=== PATIENT | male | born 1950 | race Caucasian/White ===

== ENCOUNTER 2017-10-14 02:25 | Inpatient (IN) | payer MEDICARE, MEDICAID ==
--- NOTE | 2017-10-14 02:50 | ER Document Report ---
ED General - General Chief Complaint: Bloody Stools Stated Complaint: VOMITING BLOOD Time Seen by Provider: 10/14/17 02:33 Mode of Arrival: Medic Information source: Patient, Emergency Med Personnel Notes: 67-year-old male history of A. fib and quadriplegia presents with complaints of vomiting. Patient himself states he only vomited a few times but the care facility that he was at [facility] for evaluation for dark emesis. Patient is unsure when his last bowel movement was. Patient on previous discharge was noted to be on Coumadin he himself is not sure if he is on any blood thinners his medication list does not include Coumadin at this time. Patient himself denies quadriplegia, moves his hands and his feet but is noted to have contractures of the hands, he admits to pressure sensation during rectal examination and has good rectal tone Patient is noted to have a history of gastritis without esophagitis TRAVEL OUTSIDE OF THE [place] IN LAST 30 DAYS: No - HPI Onset: Just prior to arrival Onset/Duration: Sudden Quality of pain: No pain Severity: Mild Pain Level: Denies Associated symptoms: Vomiting Exacerbated by: Denies Relieved by: Denies Similar symptoms previously: No Recently seen / treated by doctor: No - Related Data Allergies/Adverse Reactions: Sulfa (Sulfonamide Antibiotics) Allergy (Verified 09/26/13 01:48) Past Medical History - Social History Smoking Status: Never Smoker Cigarette use (# per day): No Chew tobacco use (# tins/day): No Smoking Education Provided: No Family History: Reviewed & Not Pertinent - Past Medical History Cardiac Medical History: Reports: Hx Atrial Fibrillation, Hx Congestive Heart Failure, Hx Hypertension Pulmonary Medical History: Reports: Hx COPD, Hx Pneumonia Denies: Hx Tuberculosis GI Medical History: Reports: Hx Gastroesophageal Reflux Disease Psychiatric Medical History: Denies: Hx Depression - Immunizations Hx Diphtheria, Pertussis, Tetanus Vaccination: Yes Review of Systems - Review of Systems Notes: REVIEW OF SYSTEMS: CONSTITUTIONAL : Denies fever, chills, or sweats. Denies recent illness. EENT: Denies eye, ear, throat, or mouth pain or symptoms. Denies nasal or sinus congestion or discharge. Denies throat, tongue, or mouth swelling or difficulty swallowing. CARDIOVASCULAR: Denies chest pain. Denies palpitations or racing or irregular heart beat. Denies ankle edema. RESPIRATORY: Denies cough, cold, or chest congestion. Denies shortness of breath, difficulty breathing, or wheezing. GASTROINTESTINAL: Admits to vomiting GENITOURINARY: Denies difficulty urinating, painful urination, burning, frequency, blood in urine, or discharge. MUSCULOSKELETAL: Denies back or neck pain or stiffness. Denies joint pain or swelling. SKIN: Denies rash, lesions or sores. HEMATOLOGIC : Denies easy bruising or bleeding. LYMPHATIC: Denies swollen, enlarged glands. NEUROLOGICAL: Denies confusion or altered mental status. Denies passing out or loss of consciousness. Denies dizziness or lightheadedness. Denies headache. Denies weakness or paralysis or loss of use of either side. Denies problems with gait or speech. Denies sensory loss, numbness, or tingling. Denies seizures. PSYCHIATRIC: Denies anxiety or stress. Denies depression, suicidal ideation, or homicidal ideation. ALL OTHER SYSTEMS REVIEWED AND NEGATIVE. Dictation was performed using [employer] voice recognition software PHYSICAL EXAMINATION: GENERAL: Overall well-appearing male no acute distress HEAD: Atraumatic, normocephalic. EYES: Pupils equal round and reactive to light, extraocular movements intact, sclera anicteric, conjunctiva are normal. ENT: Nares patent, oropharynx clear without exudates. Moist mucous membranes. NECK: Normal range of motion, supple without lymphadenopathy LUNGS: Breath sounds clear to auscultation bilaterally and equal. No wheezes rales or rhonchi. HEART: Regular rate and rhythm without murmurs ABDOMEN: Abdominal distention noted rectal examination notes brown stool good rectal tone Musculoskeletal: Contractures noted of bilateral hands patient is able to lift hands and move his feet NEUROLOGICAL: . Normal speech, PSYCH: Normal mood, normal affect. SKIN: Warm, Dry, normal turgor, no rashes or lesions noted. Physical Exam - Vital signs Vitals: Pulse Ox 95 10/13/17 20:40 Course - Re-evaluation Re-evalutation: 10/14/17 02:49 Patient's presentation is a bit confounding, he is noted to be quadriplegic he has sensation and movement of his extremities, it is unclear if he is actually on blood thinners at this time, examination did note brown stool and there is a concern of obstruction versus GI bleed versus simple vomiting 10/14/17 03:49 ct results consistant with ileus vs obstruction, pneumonia noted antibtiocs started 10/14/17 05:[address] Sunshine, he states this is a surgical patient , defers on admission 10/14/17 05:03 Dr smalls requests rectal gastrografin 10/14/17 05:05 - Vital Signs Vital signs: Temp Pulse Resp BP Pulse Ox 26 H 157/81 H 94 10/14/17 04:18 10/14/17 04:18 10/14/17 04:18 - Laboratory Result Diagrams: 10/14/17 02:32 10/14/17 02:32 Laboratory results interpreted by me: 10/14/17 10/14/17 02:32 02:32 WBC 15.6 H RDW 15.2 H Absolute Neutrophils 11.6 H Glucose 187 H - Diagnostic Test Radiology reviewed: Image reviewed, Reports reviewed Discharge - Discharge Clinical Impression: Large bowel obstruction, Quadriplegia Pneumonia Qualifiers: Pneumonia type: due to unspecified organism Laterality: right Lung location: lower lobe of lung Qualified Code(s): J18.1 - Lobar pneumonia, unspecified organism Condition: Stable Disposition: ADMITTED INPATIENT Admitting Provider: Surgicalist Unit Admitted: Telemetry
[2017-10-14 02:54] LABS: ABSOLUTE BASOPHILS # (AUTO) 0.1 10^3/uL (0.0-0.2); ABSOLUTE EOSINOPHILS # (AUTO) 0.3 10^3/uL (0.0-0.6); ABSOLUTE LYMPHOCYTES (AUTO) 2.7 10^3/uL (0.5-4.7); ABSOLUTE NEUT (AUTO) 11.6 10^3/uL (1.7-8.2); BASOPHILS % (AUTO) 0.4 % (0-2); EOSINOPHILS % (AUTO) 1.8 % (0-6); HEMATOCRIT 42.2 % (37.9-51.0); HEMOGLOBIN 13.8 g/dL (13.5-17.0); LYMPHOCYTES % (AUTO) 17.1 % (13-45); MEAN CORPUSCULAR HEMOGLOBIN 27.1 pg (27.0-33.4); MEAN CORPUSCULAR HGB CONC 32.7 g/dL (32.0-36.0); MEAN CORPUSCULAR VOLUME 83 fl (80-97); MONOCYTES % (AUTO) 6.3 % (3-13); PLATELET COUNT 316 10^3/uL (150-450); RED CELL DISTRIBUTION WIDTH 15.2 % (11.5-14.0); SEGMENTED NEUTROPHILS % (AUTO) 74.4 % (42-78); TOTAL CELLS COUNTED % (AUTO) 100 %; WHITE BLOOD COUNT 15.6 10^3/uL (4.0-10.5)
[2017-10-14 03:11] LABS: INTERNATIONAL RATION (INR) 1.01
[2017-10-14 03:15] LABS: ALANINE AMINOTRANSFERASE 39 U/L (21-72); ALBUMIN 4.3 g/dL (3.5-5.0); ALKALINE PHOSPHATASE 93 U/L (38-126); ANION GAP 14 (5-19); ASPARTATE AMINO TRANSFERASE 51 U/L (17-59); BILIRUBIN,DIRECT 0.4 mg/dL (0.0-0.4); BILIRUBIN,TOTAL 0.5 mg/dL (0.2-1.3); BLOOD UREA NITROGEN 8 mg/dL (7-20); CALCIUM 9.5 mg/dL (8.4-10.2); CARBON DIOXIDE 25 mmol/L (22-30); CHLORIDE 102 mmol/L (98-107); GLUCOSE 187 mg/dL (75-110); POTASSIUM 3.7 mmol/L (3.6-5.0); SODIUM 140.6 mmol/L (137-145); TOTAL PROTEIN 8.1 g/dL (6.3-8.2)
--- NOTE | 2017-10-14 04:12 | RADIOLOGY REPORT (SQ) ---
EXAM DESCRIPTION: CT ABD/PELVIS WITH IV ONLY CLINICAL HISTORY: 67 years Male, abd distension , vomiting COMPARISON: None. TECHNIQUE: 100 mL Isovue-370 IV contrast. Coronal and sagittal reformat. This exam was performed according to our departmental dose-optimization program, which includes automated exposure control, adjustment of the mA and/or kV according to patient size and/or use of iterative reconstruction technique. FINDINGS: Small-moderate right lower lobar consolidate. Minimal right pleural effusion. Moderate gaseous distention of the large bowel 10.10 cm diameter of the cecum. No free fluid. No free air. A 4.5 cm right inguinal hernia with partial urinary bladder involvement and no acute complication. 4 cm left inguinal fat only hernia. Micronodular spleen with a developmental/iatrogenic capsular/adjacent calcification. IVC filter. 1.2 cm likely benign right renal cyst. [id number] L5 anterior vertebral compression deformity. Mild/moderate disc desiccation. Moderate bony demineralization. Remaining inferior thorax, liver, gallbladder, pancreas, spleen, adrenals, renal system, gastrointestinal tract, pelvic organs, lymphatics, vasculature, and musculoskeleton appear otherwise unremarkable. IMPRESSION: 1. Small right lower lobar pneumonia. 2. Large bowel ileus pattern; cannot exclude a low-grade large bowel obstruction.
[2017-10-14] MEDS ORDERED: CEFTRIAXONE INJ 1000 MG VIAL IV ONE (04:14)
[2017-10-14] MEDS ORDERED: AMPICILLIN SOD/SULBACTAM 3 GM VIAL IV ONE (05:02)
--- NOTE | 2017-10-14 05:24 | RADIOLOGY REPORT (SQ) ---
EXAM DESCRIPTION: KUB/ABDOMEN (SINGLE VIEW) CLINICAL HISTORY: 67 years, Male, NG TUBE PLACEMENT COMPARISON: None. NUMBER OF VIEWS: 1 Technique/limitation: targeted for tube placement. FINDINGS: Adequate appearing enteric tube course with the tip/proximal port overlying the stomach. Small right basilar opacity and moderate gaseous distention of large bowel consistent with concurrent CT. Small right lung volume. IVC filter. IMPRESSION: Enteric tube.
--- NOTE | 2017-10-14 10:59 | RADIOLOGY REPORT (SQ) ---
EXAM DESCRIPTION: BARIUM ENEMA COMPLETED DATE/TIME: 10/14/2017 10:41 am REASON FOR STUDY: bed1 large bowel obstruction COMPARISON: None. FLUOROSCOPY TIME: 2.4 minutes 3 overhead and multiple fluoroscopic images saved to PACS. TECHNIQUE: Following retrograde filling of the colon with water soluble contrast, fluoroscopic spot and overhead imaging of the colon was obtained and saved to PACS. LIMITATIONS: None. FINDINGS: Contrast flowed freely into the ascending colon and cecum. No stricture is identified. IMPRESSION: No stricture. COMMENT: Quality ID [id number]: Final reports for procedures using fluoroscopy that document radiation exp osure indices, or exposure time and number of fluorographic images (if radiation exposure indices are not available) TECHNICAL DOCUMENTATION: JOB ID: [id number] [employer]- All Rights Reserved
[2017-10-14] MEDS ORDERED: GLUCAGON,HUMAN RECOMB 1 MG INJ SUBCUT PRN (11:29)
[2017-10-14] MEDS ORDERED: DEXTROSE 40% GEL 15 GM TUBE PO PRN ×2 (11:29)
[2017-10-14] MEDS ORDERED: DEXTROSE 50%-WATER 25 GM/50 ML DISP.SYRIN IV PRN ×2 (11:29)
[2017-10-14] MEDS ORDERED: ONDANSETRON HCL INJ/PF 4 MG/2 ML SDV IV PRN ×2 (11:29→13:30)
--- NOTE | 2017-10-14 11:29 | PDOC H&P ---
History of Present Illness Admission Date/PCP: 10/14/17 05:28 Patient complains of: Patient not sure why he is in the emergency room. But he did have an episode of nausea and vomiting and his senior living. History of Present Illness: LAUREN NOE JR is a 67 year old male noted with nausea and vomiting 1 at the senior living. Was subsequently taken to the emergency room for further evaluation. Patient does note some abdominal distention and some abdominal discomfort. He has been having liquid bowel movements. He is uncertain when he had his last colonoscopy. He is an extremely poor historian. Past Medical History Cardiac Medical History: Reports: Atrial Fibrillation, Congestive Heart Failure , Hypertension Pulmonary Medical History: Reports: Chronic Obstructive Pulmonary Disease (COPD) , Pneumonia Denies: Tuberculosis GI Medical History: Reports: Gastroesophageal Reflux Disease Psychiatric Medical History: Denies: Depression Social History Smoking Status: Never Smoker Frequency of Alcohol Use: None Hx Recreational Drug Use: No Drugs: None Hx Prescription Drug Abuse: No Family History Family History: Reviewed & Not Pertinent Parental Family History Reviewed: No Children Family History Reviewed: No Sibling(s) Family History Reviewed.: No Medication/Allergy Home Medications: Digoxin [Lanoxin 0.125 mg Tablet] 0.125 mg PO DAILY MDD HOLD FOR HR LESS THAN 60 10/14/17 Diltiazem HCl [Cardizem Cd 120 mg Capsule] 120 mg PO DAILY 10/14/17 Fluticasone Propionate [Flonase Nasal [place] 50 Mcg/[place] 16 gm] 1 spray NAREB DAILY 10/14/17 L. Acidophilus/L.bulgaricus [Floranex Tablet] 1 tab PO TID 10/14/17 Lactulose [Constulose 10 gm/15 mL Oral Solution] 20 gm PO QHS 10/14/17 Metoprolol Tartrate [Lopressor 100 mg Tablet] 100 mg PO Q12 10/14/17 Multivitamin [Tab-A-Thiago (Multiple Vitamin) Tablet] 1 tab PO DAILY 10/14/17 Ondansetron [Zofran Odt 4 mg Tablet] 4 mg PO Q6HP PRN 10/14/17 Allergies/Adverse Reactions: Sulfa (Sulfonamide Antibiotics) Allergy (Verified 09/26/13 01:48) Physical Exam Vital Signs: Temp Pulse Resp BP Pulse Ox 98.1 F 83 27 H 137/82 H 91 L 10/14/17 10:41 10/14/17 10:44 10/14/17 10:41 10/14/17 10:41 10/14/17 10:41 General appearance: PRESENT: no acute distress, cooperative Respiratory exam: PRESENT: clear to auscultation donovan Cardiovascular exam: PRESENT: RRR GI/Abdominal exam: PRESENT: other - Soft, mildly distended, minimal tenderness with no peritoneal signs. Rectal exam: PRESENT: other - Lax anal sphincter tone. With no anal masses. No palpable stool in the rectal vault. Patient is incontinent of liquid stool Extremities exam: PRESENT: other - Contracture deformities. Patient with limited mobility. Results Impressions: KUB X-Ray 10/14/17 00:00 IMPRESSION: Enteric tube. Abdomen/Pelvis CT 10/14/17 02:46 IMPRESSION: 1. Small right lower lobar pneumonia. 2. Large bowel ileus pattern; cannot exclude a low-grade large bowel obstruction. Barium Enema 10/14/17 09:19 IMPRESSION: No stricture. Assessment & Plan - Diagnosis (1) Constipation Qualifiers: Constipation type: unspecified constipation type Qualified Code(s): K59.00 - Constipation, unspecified Is this a current diagnosis for this admission?: Yes Plan: Patient with dilated large bowel however Gastrografin enema demonstrated no evidence of large bowel obstruction. 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 The Gastrografin enema may be therapeutic. I do not see any surgical issues. Will transfer the patient to the medical service. Recommend a colonoscopy in the near future.
[2017-10-14] MEDS ORDERED: IPRATROPIUM/ALBUTEROL 0.5-2.5 MG/3 ML AMPUL NEB PRN (12:11)
[2017-10-14] MEDS ORDERED: VANCOMYCIN HCL 0 MG in DEXTROSE 5%-WATER 250 ML IV NR (12:15)
--- NOTE | 2017-10-14 12:15 | PDOC PROGRESS REPORT ---
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 fib, dysphasia, and history of ileus who was admitted overnight by the surgical list for possible bowel obstruction. This morning, at 1110, I was contacted by our lead hospitalist, Dr. Cunha. Per Dr. Cunha, the surgical team has transferred the patient into the hospitalist service as follow-up testing has confirmed that the patient is not have an acute abdomen. The patient is seen in the emergency department. He is found resting in bed comfortably. He has an NG tube in place hooked up to low intermittent suction pulling dark brown liquid. Denies abdominal pain and nausea presently. He states that he was feeling well yesterday with onset of nausea and vomiting towards the evening. He is pleasant, however, is a poor historian and cannot recall his past medical history. Past medical history and medications were obtained from [facility]. Reason For Visit: LARGE BOWEL OBSTRUCTION, QUADRIPLEGIA, PNEUMONIA Physical Exam Vital Signs: Temp Pulse Resp BP Pulse Ox 98.1 F 83 18 144/84 H 89 L 10/14/17 10:41 10/14/17 10:44 10/14/17 11:01 10/14/17 11:01 10/14/17 11:01 General appearance: PRESENT: no acute distress, thin, well-developed, well- nourished Head exam: PRESENT: atraumatic, normocephalic Eye exam: PRESENT: conjunctiva pink, EOMI, PERRLA. ABSENT: scleral icterus Ear exam: PRESENT: normal external ear exam Mouth exam: PRESENT: moist, tongue midline Neck exam: PRESENT: other - Tracheostomy scar. ABSENT: carotid bruit, JVD, lymphadenopathy, thyromegaly Respiratory exam: PRESENT: clear to auscultation donovan, symmetrical, unlabored. ABSENT: rales, rhonchi, wheezes Cardiovascular exam: PRESENT: RRR, +S1, +S2. ABSENT: diastolic murmur, rubs, systolic murmur Pulses: PRESENT: normal dorsalis pedis pul Vascular exam: PRESENT: normal capillary refill GI/Abdominal exam: PRESENT: distended, firm, hyperactive bowel sounds, tenderness - Mild generalized tenderness with light palpation.. ABSENT: guarding, mass, organolmegaly, rebound, rigid Rectal exam: PRESENT: deferred, heme (-) stool - By ED physician Extremities exam: PRESENT: full ROM. ABSENT: calf tenderness, clubbing, pedal edema Neurological exam: PRESENT: alert, awake, oriented to person, oriented to place , oriented to time, oriented to situation, CN II-XII grossly intact - The patient is able to move all extremities, however, slight contraction noted to bilateral hands, other - Poor long-term memory recall. ABSENT: motor sensory deficit Psychiatric exam: PRESENT: appropriate affect, normal mood. ABSENT: homicidal ideation, suicidal ideation Skin exam: PRESENT: dry, intact, warm. ABSENT: cyanosis, rash Results Impressions: KUB X-Ray 10/14/17 00:00 IMPRESSION: Enteric tube. Abdomen/Pelvis CT 10/14/17 02:46 IMPRESSION: 1. Small right lower lobar pneumonia. 2. Large bowel ileus pattern; cannot exclude a low-grade large bowel obstruction. Barium Enema 10/14/17 09:19 IMPRESSION: No stricture. Assessment & Plan - Diagnosis (1) Ileus Is this a current diagnosis for this admission?: Yes Plan: The patient presented with significant abdominal distention, nausea and vomiting , and report of loose bowel movements prior to arrival. CT of the abdomen and pelvis revealed a moderate distention of the large bowel suggestive of ileus versus obstruction. Follow-up barium enema did not reveal strictures. He was initially admitted to the surgical service and has been transferred to the hospitalist team for follow-up management of ileus. The patient will be admitted to the medical floor. He is placed on bowel rest with p.o. status and NG tube set to low intermittent suction. We will provide for hydration with IV fluids. (2) Right lower lobe pneumonia Qualifiers: Pneumonia type: due to unspecified organism Qualified Code(s): J18.1 - Lobar pneumonia, unspecified organism Is this a current diagnosis for this admission?: Yes Plan: A right lower lobe pneumonia was noted as an incidental finding on imaging to evaluate for ileus versus obstruction. The patient denies recent acute illness, however, he is a poor historian and I am concerned that he may have been symptomatic and cannot recall recent events. 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 He has been afebrile, however, has been noted to be tachypneic with a respiratory rate in the mid to high 20s as well as mild hypoxia at 89% on room air. He does have leukocytosis with a white blood cell count of 15.6. Therefore will provide antibiotic coverage of a healthcare associated pneumonia as the patient is a long-term care resident. We will obtain blood cultures. We will place the patient on Zosyn and vancomycin. Will de-escalate antibiotics as quickly as blood cultures allow. Supplemental oxygen as needed to maintain oxygen saturations greater than 88%. Duo nebs ordered every 8 hours as needed. Incentive spirometry to bedside. (3) GERD (gastroesophageal reflux disease) Is this a current diagnosis for this admission?: Yes Plan: No evidence of active GI bleeding. Guaiac negative. The patient has been placed on Pepcid twice daily. (4) COPD (chronic obstructive pulmonary disease) Qualifiers: COPD type: unspecified COPD Qualified Code(s): J44.9 - Chronic obstructive pulmonary disease, unspecified Is this a current diagnosis for this admission?: Yes Plan: No evidence of acute exacerbation at this time. Patient does not appear to be on home maintenance therapy. The patient is being treated for a right lower lobe pneumonia. Remaining plan as above. (5) Coronary artery disease Is this a current diagnosis for this admission?: Yes Plan: Daily aspirin. (6) Hypertension Is this a current diagnosis for this admission?: Yes Plan: The patient's home medications have been continued; digoxin, diltiazem, Toprol. (7) CHF (congestive heart failure) Qualifiers: Heart failure chronicity: chronic Is this a current diagnosis for this admission?: Yes Plan: No evidence of exacerbation at this time. The patient appears to be euvolemic. Home medication regimen continued as above. (8) Dysphasia Is this a current diagnosis for this admission?: Yes Plan: Currently n.p.o. Aspiration precautions. - Time Time Spent with patient: 35 or more minutes Medications reviewed and adjusted accordingly: Yes Anticipated discharge: SNF - Long-term care resident at [place] - Inpatient Certification Based on my medical assessment, after consideration of the patient's comorbidities, presenting symptoms, or acuity I expect that the services needed warrant INPATIENT care.: Yes I certify that my determination is in accordance with my understanding of Medicare's requirements for reasonable and necessary INPATIENT services [42 CFR 412.3e].: Yes Medical Necessity: Need For IV Fluids
[2017-10-14] MEDS ORDERED: ENOXAPARIN SODIUM INJ 40 MG/0.4 ML DISP.SYRIN SUBCUT ONE (13:00)
[2017-10-14] MEDS: NORMAL SALINE 1000 ML 1,000 ML IV PRN (13:25)
[2017-10-14] MEDS ORDERED: VANCOMYCIN HCL 1,500 MG in DEXTROSE 5%-WATER 250 ML IV ONE (13:30)
[2017-10-14] MEDS ORDERED: ACIDOPHILUS PO SCH (14:00)
[2017-10-14] MEDS ORDERED: BULGARICUS PO SCH (14:00)
[2017-10-14] MEDS ORDERED: PIPERACILLIN SODIUM/TAZOBACTAM 3.375 GM in NORMAL SALINE 100 ML IV SCH (15:00)
[2017-10-14] MEDS: PIPERACILLIN SODIUM/TAZOBACTAM 3.375 GM in NORMAL SALINE 100 ML IV SCH (18:23)
[2017-10-14] MEDS: LACTOBACILLUS ACIDOPHILUS 250 MG TAB PO SCH (18:23)
[2017-10-14] MEDS ORDERED: LACTULOSE 20 GM PO SCH (22:00)
[2017-10-15] MEDS: PIPERACILLIN SODIUM/TAZOBACTAM 3.375 GM in NORMAL SALINE 100 ML IV SCH ×4 (00:10→18:01)
[2017-10-15] MEDS: VANCOMYCIN HCL 750 MG in DEXTROSE 5%-WATER 250 ML IV SCH ×3 (00:10→22:18)
[2017-10-15] MEDS: FAMOTIDINE INJ/PF 20 MG/2 ML SDV IV SCH ×3 (00:11→22:18)
[2017-10-15] MEDS: LACTULOSE SYRUP 20 GM/30 ML UDCUP PO SCH ×2 (00:49→22:18)
[2017-10-15] MEDS: METOPROLOL TARTRATE 100 MG TABLET PO SCH ×3 (00:54→22:18)
[2017-10-15] MEDS: ASPIRIN 81 MG TABLET, CHEWABLE PO SCH ×2 (00:54→22:18)
[2017-10-15 05:19] LABS: HEMATOCRIT 35.6 % (37.9-51.0); HEMOGLOBIN 11.8 g/dL (13.5-17.0); MEAN CORPUSCULAR HGB CONC 33.1 g/dL (32.0-36.0); MEAN CORPUSCULAR VOLUME 82 fl (80-97); PLATELET COUNT 271 10^3/uL (150-450); RED BLOOD COUNT 4.36 10^6/uL (4.35-5.55); RED CELL DISTRIBUTION WIDTH 15.1 % (11.5-14.0); WHITE BLOOD COUNT 12.9 10^3/uL (4.0-10.5)
[2017-10-15 05:32] LABS: ANION GAP 13 (5-19); BLOOD UREA NITROGEN 7 mg/dL (7-20); CALCIUM 8.8 mg/dL (8.4-10.2); CARBON DIOXIDE 23 mmol/L (22-30); CHLORIDE 107 mmol/L (98-107); GLUCOSE 164 mg/dL (75-110); POTASSIUM 3.2 mmol/L (3.6-5.0); SODIUM 143.3 mmol/L (137-145)
[2017-10-15] MEDS: NORMAL SALINE 1000 ML 1,000 ML IV PRN (06:02)
--- NOTE | 2017-10-15 08:53 | PDOC PROGRESS REPORT ---
Subjective Progress Note for:: 10/15/17 Subjective:: He reports he has passed flatus yesterday and feels much better. Reason For Visit: RLL PNA WITH HYPOXIA, ILEUS Physical Exam Vital Signs: Temp Pulse Resp BP Pulse Ox 98.8 F 105 H 16 142/76 H 97 10/14/17 23:42 10/14/17 23:42 10/14/17 23:42 10/14/17 23:42 10/14/17 23:42 Intake & Output 10/14/17 10/15/17 10/16/17 06:59 06:59 06:59 Intake Total 1100 Balance 1100 Weight 57.9 kg General appearance: PRESENT: other - Sleeping when I walked into the room. Easily arousable. Respiratory exam: PRESENT: other - Clear bilaterally Cardiovascular exam: PRESENT: other - Regular rate. No murmurs noted. GI/Abdominal exam: PRESENT: other - Soft, nontender, nondistended. Bowel sounds present. Results Laboratory Results: 10/15/17 04:00 10/15/17 04:00 10/15/17 10/15/17 04:00 04:00 WBC 12.9 H RBC 4.36 Hgb 11.8 L Hct 35.6 L MCV 82 MCH 27.0 MCHC 33.1 RDW 15.1 H Plt Count 271 Sodium 143.3 Potassium 3.2 L Chloride 107 Carbon Dioxide 23 Anion Gap 13 BUN 7 Creatinine 0.78 Est GFR ( Amer) > 60 Est GFR (Non-Af Amer) > 60 Glucose 164 H Calcium 8.8 Impressions: KUB X-Ray 10/14/17 00:00 IMPRESSION: Enteric tube. Abdomen/Pelvis CT 10/14/17 02:46 IMPRESSION: 1. Small right lower lobar pneumonia. 2. Large bowel ileus pattern; cannot exclude a low-grade large bowel obstruction. Barium Enema 10/14/17 09:19 IMPRESSION: No stricture. Assessment & Plan - Diagnosis (1) Ileus Is this a current diagnosis for this admission?: Yes - Plan Summary Plan Summary: 67-year-old male with apparent colonic ileus. He is symptomatically better. He has had minimal NG output. I will remove the NG tube today. Start clear liquids. He has a potassium of 3.2 this morning I will correct this and also send magnesium phosphorus and calcium levels.
[2017-10-15 09:48] LABS: CALCIUM 8.6 mg/dL (8.4-10.2); MAGNESIUM 1.8 mg/dL (1.6-2.3); PHOSPHORUS 4.1 mg/dL (2.5-4.5)
[2017-10-15] MEDS: ENOXAPARIN SODIUM INJ 40 MG/0.4 ML DISP.SYRIN SUBCUT SCH (10:11)
[2017-10-15] MEDS: POTASSI CL 20 MEQ/50 ML RIDER 20 MEQ/50 ML RTUPB IV SCH ×2 (10:11→12:33)
[2017-10-15] MEDS: DILTIAZEM HCL 120 MG CAP.SR.24H PO SCH (10:12)
[2017-10-15] MEDS: MULTIVITAMIN TABLET PO SCH (10:12)
[2017-10-15] MEDS: POTASSIUM CHLORIDE 10 MEQ TABLET.SA PO SCH ×2 (10:12→22:18)
[2017-10-15] MEDS: LACTOBACILLUS ACIDOPHILUS 250 MG TAB PO SCH ×2 (10:13→18:01)
[2017-10-15] MEDS: FLUTICASONE NASAL SPRAY 50 MCG/SPRY 120 SPRAY/16 GM NAREB SCH (10:19)
[2017-10-15] MEDS: DIGOXIN 0.125 MG TABLET PO SCH (10:20)
--- NOTE | 2017-10-15 16:54 | PDOC PROGRESS REPORT ---
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 fib, dysphasia, and history of ileus who was admitted overnight by the surgical list for possible bowel obstruction. The patient is seen on morning rounds. He is found sitting upright in bed on room air. He does have the NG tube in place though is clamped at this time. He tells me that the surgeon has just been by and told him that he may begin eating today. He tells me that his abdominal distention is much better and that his nausea has resolved. Plan per nursing the patient has had multiple large bowel movements overnight. Reason For Visit: RLL PNA WITH HYPOXIA, ILEUS Physical Exam Vital Signs: Temp Pulse Resp BP Pulse Ox 98.2 F 65 16 167/59 H 100 10/15/17 16:28 10/15/17 16:28 10/15/17 16:28 10/15/17 16:28 10/15/17 16:28 Intake & Output 10/14/17 10/15/17 10/16/17 06:59 06:59 06:59 Intake Total 1100 Balance 1100 Weight 57.9 kg General appearance: PRESENT: no acute distress, thin, well-developed, well- nourished Head exam: PRESENT: atraumatic, normocephalic Eye exam: PRESENT: conjunctiva pink, EOMI, PERRLA. ABSENT: scleral icterus Ear exam: PRESENT: normal external ear exam Mouth exam: PRESENT: moist, tongue midline Neck exam: ABSENT: carotid bruit, JVD, lymphadenopathy, thyromegaly Respiratory exam: PRESENT: clear to auscultation donovan, symmetrical, unlabored. ABSENT: rales, rhonchi, wheezes Cardiovascular exam: PRESENT: RRR, +S1, +S2. ABSENT: diastolic murmur, rubs, systolic murmur Pulses: PRESENT: normal dorsalis pedis pul Vascular exam: PRESENT: normal capillary refill GI/Abdominal exam: PRESENT: normal bowel sounds, soft. ABSENT: distended, guarding, mass, organolmegaly, rebound, tenderness Rectal exam: PRESENT: deferred Extremities exam: PRESENT: full ROM. ABSENT: calf tenderness, clubbing, pedal edema Neurological exam: PRESENT: alert, awake, oriented to person, oriented to place , CN II-XII grossly intact, other - It is a very poor historian. He is somewhat forgetful and cannot recall his past medical history. However he does remember me from yesterday.. ABSENT: oriented to time, oriented to situation, motor sensory deficit Psychiatric exam: PRESENT: appropriate affect, normal mood. ABSENT: homicidal ideation, suicidal ideation Skin exam: PRESENT: dry, intact, warm. ABSENT: cyanosis, rash Results Laboratory Results: 10/15/17 04:00 10/15/17 04:00 10/15/17 10/15/17 10/15/17 04:00 04:00 09:18 WBC 12.9 H RBC 4.36 Hgb 11.8 L Hct 35.6 L MCV 82 MCH 27.0 MCHC 33.1 RDW 15.1 H Plt Count 271 Sodium 143.3 Potassium 3.2 L Chloride 107 Carbon Dioxide 23 Anion Gap 13 BUN 7 Creatinine 0.78 Est GFR ( Amer) > 60 Est GFR (Non-Af Amer) > 60 Glucose 164 H Calcium 8.8 8.6 Phosphorus 4.1 Magnesium 1.8 Impressions: KUB X-Ray 10/14/17 00:00 IMPRESSION: Enteric tube. Abdomen/Pelvis CT 10/14/17 02:46 IMPRESSION: 1. Small right lower lobar pneumonia. 2. Large bowel ileus pattern; cannot exclude a low-grade large bowel obstruction. Barium Enema 10/14/17 09:19 IMPRESSION: No stricture. Assessment & Plan - Diagnosis (1) Ileus Is this a current diagnosis for this admission?: Yes Plan: Resolved. The patient's abdominal distention has resolved; his abdomen is soft and nontender. His bowel sounds are normal. He has had multiple bowel movements overnight. The patient will be admitted to the medical floor. May remove the NG tube at this time. The patient may begin clear liquids and advance diet as tolerated. (2) Right lower lobe pneumonia Qualifiers: Pneumonia type: due to unspecified organism Qualified Code(s): J18.1 - Lobar pneumonia, unspecified organism Is this a current diagnosis for this admission?: Yes Plan: A right lower lobe pneumonia was noted as an incidental finding on imaging to evaluate for ileus versus obstruction. He has been afebrile, however, has been noted to be tachypneic with a respiratory rate in the mid to high 20s as well as mild hypoxia at 89% on room air. He does have leukocytosis with a white blood cell count of 15.6. Therefore will provide antibiotic coverage of a healthcare associated pneumonia as the patient is a long-term care resident. Blood cultures: No growth at 24 hours MRSA screening is pending. We will place the patient on Zosyn and vancomycin. Will de-escalate antibiotics as quickly as blood cultures allow; if MRSA screening and cultures remain negative, plan to discontinue vancomycin tomorrow and transition to p.o. Augmentin for discharge. Supplemental oxygen as needed to maintain oxygen saturations greater than 88%. Duo nebs ordered every 8 hours as needed. Incentive spirometry to bedside. (3) GERD (gastroesophageal reflux disease) Is this a current diagnosis for this admission?: Yes Plan: No evidence of active GI bleeding. Guaiac negative. The patient has been placed on Pepcid twice daily. (4) COPD (chronic obstructive pulmonary disease) Qualifiers: COPD type: unspecified COPD Qualified Code(s): J44.9 - Chronic obstructive pulmonary disease, unspecified Is this a current diagnosis for this admission?: Yes Plan: No evidence of acute exacerbation at this time. Patient does not appear to be on home maintenance therapy. The patient is being treated for a right lower lobe pneumonia. Remaining plan as above. (5) Coronary artery disease Is this a current diagnosis for this admission?: Yes Plan: Daily aspirin. (6) Hypertension Is this a current diagnosis for this admission?: Yes Plan: The patient's home medications have been continued; digoxin, diltiazem, Toprol. (7) CHF (congestive heart failure) Qualifiers: Heart failure chronicity: chronic Is this a current diagnosis for this admission?: Yes Plan: No evidence of exacerbation at this time. The patient appears to be euvolemic. Home medication regimen continued as above. (8) Dysphasia Is this a current diagnosis for this admission?: Yes Plan: We began clear liquids and advance diet as tolerated to a mechanical soft cardiac diet. Aspiration precautions. - Time Time Spent with patient: 15-24 minutes Anticipated discharge: Home Within: within 24 hours
[2017-10-16] MEDS: PIPERACILLIN SODIUM/TAZOBACTAM 3.375 GM in NORMAL SALINE 100 ML IV SCH ×2 (00:14→05:58)
[2017-10-16 07:43] LABS: HEMATOCRIT 35.3 % (37.9-51.0); HEMOGLOBIN 11.6 g/dL (13.5-17.0); MEAN CORPUSCULAR HEMOGLOBIN 27.2 pg (27.0-33.4); MEAN CORPUSCULAR HGB CONC 32.9 g/dL (32.0-36.0); MEAN CORPUSCULAR VOLUME 83 fl (80-97); PLATELET COUNT 273 10^3/uL (150-450); RED BLOOD COUNT 4.27 10^6/uL (4.35-5.55); RED CELL DISTRIBUTION WIDTH 14.7 % (11.5-14.0); WHITE BLOOD COUNT 8.3 10^3/uL (4.0-10.5)
[2017-10-16 08:05] LABS: ANION GAP 11 (5-19); BLOOD UREA NITROGEN 4 mg/dL (7-20); CALCIUM 8.8 mg/dL (8.4-10.2); CARBON DIOXIDE 23 mmol/L (22-30); CHLORIDE 109 mmol/L (98-107); GLUCOSE 96 mg/dL (75-110); POTASSIUM 3.2 mmol/L (3.6-5.0); SODIUM 143.1 mmol/L (137-145)
[2017-10-16] MEDS: ENOXAPARIN SODIUM INJ 40 MG/0.4 ML DISP.SYRIN SUBCUT SCH (09:16)
[2017-10-16] MEDS: DILTIAZEM HCL 120 MG CAP.SR.24H PO SCH (09:17)
[2017-10-16] MEDS: LACTOBACILLUS ACIDOPHILUS 250 MG TAB PO SCH ×2 (09:17→17:50)
[2017-10-16] MEDS: MULTIVITAMIN TABLET PO SCH (09:17)
[2017-10-16] MEDS: DIGOXIN 0.125 MG TABLET PO SCH (09:18)
[2017-10-16] MEDS: METOPROLOL TARTRATE 100 MG TABLET PO SCH (09:18)
[2017-10-16] MEDS: FAMOTIDINE INJ/PF 20 MG/2 ML SDV IV SCH (09:19)
[2017-10-16] MEDS: FLUTICASONE NASAL SPRAY 50 MCG/SPRY 120 SPRAY/16 GM NAREB SCH (09:19)
[2017-10-16] MEDS ORDERED: POTASSIUM CHLORIDE 20 MEQ/15 ML UDCUP PO ONE (10:30)
--- NOTE | 2017-10-16 11:07 | PDOC PROGRESS REPORT ---
Subjective Progress Note for:: 10/16/17 Subjective:: feeling well, flatus present, no stools, soft diet tolerated Reason For Visit: RLL PNA WITH HYPOXIA, ILEUS Physical Exam Vital Signs: Temp Pulse Resp BP Pulse Ox 97.7 F 84 18 161/61 H 97 10/16/17 08:08 10/16/17 08:09 10/16/17 08:09 10/16/17 08:08 10/16/17 08:09 Intake & Output 10/15/17 10/16/17 10/17/17 06:59 06:59 06:59 Intake Total 1100 3950 Balance 1100 3950 Weight 57.9 kg 61.6 kg General appearance: PRESENT: no acute distress, cooperative Respiratory exam: PRESENT: clear to auscultation donovan Cardiovascular exam: PRESENT: RRR GI/Abdominal exam: PRESENT: soft Results Laboratory Results: 10/16/17 06:35 10/16/17 10/16/17 06:35 06:35 WBC 8.3 RBC 4.27 L Hgb 11.6 L Hct 35.3 L MCV 83 MCH 27.2 MCHC 32.9 RDW 14.7 H Plt Count 273 Sodium 143.1 Potassium 3.2 L Chloride 109 H Carbon Dioxide 23 Anion Gap 11 BUN 4 L Creatinine 0.76 Est GFR ( Amer) > 60 Est GFR (Non-Af Amer) > 60 Glucose 96 Calcium 8.8 10/15/17 09:05 Nasophary (Mrsa Only) MRSA Surveillance Culture - Final NO MRSA RECOVERED Impressions: KUB X-Ray 10/14/17 00:00 IMPRESSION: Enteric tube. Abdomen/Pelvis CT 10/14/17 02:46 IMPRESSION: 1. Small right lower lobar pneumonia. 2. Large bowel ileus pattern; cannot exclude a low-grade large bowel obstruction. Barium Enema 10/14/17 09:19 IMPRESSION: No stricture. Assessment & Plan - Diagnosis (1) Pseudoobstruction of colon Is this a current diagnosis for this admission?: Yes - Plan Summary Plan Summary: A/ resolved [place]'s syndrome Resolving RLL pneumonia patient tolerating soft diet flatus present No stools after large diarrhea following gastrografin LG Low K 3.2 PE unremarkable P/ Discharge to [place] today Will give KCl rider before d/c follow up with Clinic next week Soft diet Miralax 1 cup po daily Augmentin 500 mg po TID as per Medicine Pepcid 20 po daily
[2017-10-16 11:16] LABS: VANCOMYCIN,TROUGH 10.5 ug/mL (5.0-20.0)
[2017-10-16] MEDS ORDERED: POTASSI CL 20 MEQ/50 ML RIDER 20 MEQ/50 ML RTUPB IV SCH (12:00)
--- NOTE | 2017-10-16 12:09 | DISCHARGE SUMMARY E ---
Discharge Summary NAME: LAUREN NOE : 1950 AGE: 67Y ADMITTED: 10/14/2017 DISCHARGED: 10/16/2017 FINAL DIAGNOSES: 1. Chronic pseudo-obstruction (Jessica's syndrome). 2. Right lower lobe pneumonia. 3. GERD. PROCEDURE: None. COMPLICATIONS: None. HOSPITAL COURSE: This is a 67-year-old male with neurological impairment and [facility] resident admitted for abdominal distension and discomfort. Found to have chronic pseudo-obstruction. Upper GI and gastrography was done with a large amount of liquid stools obtained. The patient was then hospitalized. His diet was advanced from clear liquids to soft diet which was tolerated. On the day of discharge, the patient had no complaints. He was able to tolerate soft diet well. His blood work was within normal limits except for low potassium of 3.2 which as replaced with both oral and IV potassium prior to discharge. His physical exam was unremarkable. His abdomen was soft. DISCHARGE ORDERS: The patient was discharged to go home on October 16. He was given followup appointment with Dr. Greenwood in the Surgery [facility] within 1-2 weeks. He was given back his home medications. He was instructed to take MiraLax 1 capsule p.o. daily to keep the stool soft. He was allowed to shower and bathe. Activities is as tolerated. The patient was given a soft mechanical diet with high fiber. DICTATING PHYSICIAN: TESSA CHARLES M.D. [id number] PHY#: [id number] ID: [id number] JOB#: [id number] ACCT: [id number] cc:TESSA CHARLES M.D., E. RJoel > [facility]
[2017-10-16] MEDS: POTASSIUM CHLORIDE 20 MEQ/50 ML RTU IV SCH ×2 (12:33→15:24)
--- NOTE | 2017-10-16 13:44 | PDOC PROGRESS REPORT ---
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 fib, dysphasia, and history of ileus who was admitted overnight by the surgical list for possible bowel obstruction. The patient is seen on morning rounds. He is found sitting upright in bed on room air. He states that he is feeling well today. His only complaint at present is that he does not like grits and asks that his diet be advanced so that he may eat a regular meal. He denies abd pain, nausea, vomiting, cough, and dyspnea. Reason For Visit: RLL PNA WITH HYPOXIA, ILEUS Physical Exam Vital Signs: Temp Pulse Resp BP Pulse Ox 97.5 F 54 L 17 153/61 H 99 10/16/17 11:47 10/16/17 11:47 10/16/17 11:47 10/16/17 11:47 10/16/17 11:47 Intake & Output 10/15/17 10/16/17 10/17/17 06:59 06:59 06:59 Intake Total 1100 3950 Balance 1100 3950 Weight 57.9 kg 61.6 kg Results Laboratory Results: 10/16/17 06:35 10/16/17 10:20 10/16/17 10/16/17 10/16/17 06:35 06:35 10:20 WBC 8.3 RBC 4.27 L Hgb 11.6 L Hct 35.3 L MCV 83 MCH 27.2 MCHC 32.9 RDW 14.7 H Plt Count 273 Sodium 143.1 Potassium 3.2 L Chloride 109 H Carbon Dioxide 23 Anion Gap 11 BUN 4 L Creatinine 0.76 0.70 Est GFR ( Amer) > 60 > 60 Est GFR (Non-Af Amer) > 60 > 60 Glucose 96 Calcium 8.8 10/15/17 09:05 Nasophary (Mrsa Only) MRSA Surveillance Culture - Final NO MRSA RECOVERED Impressions: KUB X-Ray 10/14/17 00:00 IMPRESSION: Enteric tube. Abdomen/Pelvis CT 10/14/17 02:46 IMPRESSION: 1. Small right lower lobar pneumonia. 2. Large bowel ileus pattern; cannot exclude a low-grade large bowel obstruction. Barium Enema 10/14/17 09:19 IMPRESSION: No stricture. Assessment & Plan - Diagnosis (1) Ileus Is this a current diagnosis for this admission?: Yes Plan: Resolved. The patient's abdominal distention has resolved; his abdomen is soft and nontender. His bowel sounds are normal. He has had multiple bowel movements overnight. Diet has been advanced to a mechanical soft cardiac diet. (2) Right lower lobe pneumonia Qualifiers: Pneumonia type: due to unspecified organism Qualified Code(s): J18.1 - Lobar pneumonia, unspecified organism Is this a current diagnosis for this admission?: Yes Plan: A right lower lobe pneumonia was noted as an incidental finding on imaging to evaluate for ileus versus obstruction. He has been afebrile, however, has been noted to be tachypneic with a respiratory rate in the mid to high 20s as well as mild hypoxia at 89% on room air. He does have leukocytosis with a white blood cell count of 15.6. Therefore will provide antibiotic coverage of a healthcare associated pneumonia as the patient is a long-term care resident. Blood cultures: No growth at 48 hours MRSA screening is negative. Pt was empirically placed on Zosyn and vancomycin. Will discontinue vancomycin and transition zosyn to p.o. Augmentin. Supplemental oxygen as needed to maintain oxygen saturations greater than 88%. Duo nebs ordered every 8 hours as needed. Incentive spirometry to bedside. Pt is stable for discharge once cleared by surgery. (3) GERD (gastroesophageal reflux disease) Is this a current diagnosis for this admission?: Yes Plan: No evidence of active GI bleeding. Guaiac negative. The patient has been placed on Pepcid twice daily. (4) COPD (chronic obstructive pulmonary disease) Qualifiers: COPD type: unspecified COPD Qualified Code(s): J44.9 - Chronic obstructive pulmonary disease, unspecified Is this a current diagnosis for this admission?: Yes Plan: No evidence of acute exacerbation at this time. Patient does not appear to be on home maintenance therapy. The patient is being treated for a right lower lobe pneumonia. Remaining plan as above. (5) Coronary artery disease Is this a current diagnosis for this admission?: Yes Plan: Daily aspirin. (6) Hypertension Is this a current diagnosis for this admission?: Yes Plan: The patient's home medications have been continued; digoxin, diltiazem, Toprol. (7) CHF (congestive heart failure) Qualifiers: Heart failure chronicity: chronic Is this a current diagnosis for this admission?: Yes Plan: No evidence of exacerbation at this time. The patient appears to be euvolemic. Home medication regimen continued as above. (8) Dysphasia Is this a current diagnosis for this admission?: Yes Plan: We began clear liquids and advance diet as tolerated to a mechanical soft cardiac diet. Aspiration precautions. (9) Hypokalemia Is this a current diagnosis for this admission?: Yes Plan: Will monitor and replace as necessary. - Time Time Spent with patient: 15-24 minutes Medications reviewed and adjusted accordingly: Yes Anticipated discharge: Home Within: within 24 hours
[2017-10-16] MEDS ORDERED: AMOXICILLIN TR/POT CLAVULANATE 500-125 MG TAB PO SCH (14:00)
[2017-10-16 17:23] VITALS: BP 177/83
[2017-10-16] MEDS ORDERED: POTASSIUM CHLORIDE 20 MEQ/15 ML UDCUP PO SCH (22:00)
[2017-10-16] MEDS ORDERED: FAMOTIDINE 20 MG TABLET PO SCH (22:00)
== END 2017-10-16 18:41 | DRG 388 ==
LOC: ER 02:25 → UNDOADMIN 05:28 → EH 05:28 → OBSVTOIN 11:29 → UNDOADMIN 11:29 → INTOOBSV 11:29 → EH 11:29 → OBSVTOIN 15:23 → 5 16:25
PROVIDERS: ADMIT Surgery; ATTEND Surgery
DX: K56.699 Other intestinal obstruction unspecified as to partial versus complete obstruction (principal); J18.9 Pneumonia, unspecified organism; J44.0 Chronic obstructive pulmonary disease with (acute) lower respiratory infection; K21.9 Gastro-esophageal reflux disease without esophagitis; J44.9 Chronic obstructive pulmonary disease, unspecified; I50.9 Heart failure, unspecified; R13.10 Dysphagia, unspecified; I25.10 Atherosclerotic heart disease of native coronary artery without angina pectoris; R27.0 Ataxia, unspecified; G40.909 Epilepsy, unspecified, not intractable, without status epilepticus; K20.9 Esophagitis, unspecified; J45.909 Unspecified asthma, uncomplicated; I10 Essential (primary) hypertension; S14.104S Unspecified injury at C4 level of cervical spinal cord, sequela; I48.91 Unspecified atrial fibrillation; Z79.82 Long term (current) use of aspirin; Z87.828 Personal history of other (healed) physical injury and trauma; Z88.2 Allergy status to sulfonamides
CPT/HCPCS: 36415; 74018; 74177; 74270; 80048; 80053; 80202; 82272; 82310; 82565; 83735; 84100; 85025; 85027; 85610; 86850; 86900; 86901; 87040; 94799; 96365; 99285; J0295; J0696; J1650; J2543; J3370; J3480; J3490; J7030; J7060; S0028

== ENCOUNTER 2017-11-06 00:55 | Inpatient (IN) | payer MEDICARE, MEDICAID ==
--- NOTE | 2017-11-06 01:16 | ER Document Report ---
ED General - General Stated Complaint: ABDOMINAL PAIN Time Seen by Provider: 11/06/17 00:59 Information source: Patient, [facility] Records, Outside Facility Records TRAVEL OUTSIDE OF THE [place] IN LAST 30 DAYS: No - HPI Patient complains to provider of: vomited dark material Onset: Just prior to arrival Onset/Duration: Sudden Similar symptoms previously: Yes Recently seen / treated by doctor: Yes - Related Data Allergies/Adverse Reactions: Sulfa (Sulfonamide Antibiotics) Allergy (Verified 09/26/13 01:48) Past Medical History - General Information source: Patient - Social History Smoking Status: Former Smoker Frequency of alcohol use: None Drug Abuse: None Lives with: [facility] Family History: Reviewed & Not Pertinent - Past Medical History Cardiac Medical History: Reports: Hx Atrial Fibrillation, Hx Congestive Heart Failure, Hx Hypertension Pulmonary Medical History: Reports: Hx COPD, Hx Pneumonia Denies: Hx Tuberculosis EENT Medical History: Reports: None Neurological Medical History: Reports: Hx Seizures Renal/ Medical History: Denies: Hx Peritoneal Dialysis GI Medical History: Reports: Hx Gastroesophageal Reflux Disease Musculoskeltal Medical History: Reports Other - C4 injury Psychiatric Medical History: Denies: Hx Depression - Immunizations Hx Diphtheria, Pertussis, Tetanus Vaccination: Yes Review of Systems - Review of Systems Constitutional: No symptoms reported EENT: No symptoms reported Cardiovascular: No symptoms reported Respiratory: No symptoms reported Gastrointestinal: No symptoms reported Genitourinary: No symptoms reported Male Genitourinary: No symptoms reported Musculoskeletal: No symptoms reported Skin: No symptoms reported Hematologic/Lymphatic: No symptoms reported Neurological/Psychological: No symptoms reported Physical Exam - Notes Notes: PHYSICAL EXAMINATION: GENERAL: Medically ill-appearing laying in bed no acute distress HEAD: Atraumatic, normocephalic. EYES: Pupils equal round and reactive to light, extraocular movements intact, sclera anicteric, conjunctiva are normal. ENT: Nares patent, oropharynx clear without exudates. Dry mucous membranes. NECK: No lymphadenopathy LUNGS: Breath sounds clear to auscultation bilaterally and equal. No wheezes rales or rhonchi. HEART: Regular rate and rhythm without murmurs ABDOMEN: Currently distended hypoactive bowel sounds Musculoskeletal: Patient can minimally move arms and legs. Contractures to his upper extremities NEUROLOGICAL: Cranial nerves grossly intact. Normal speech. PSYCH: Normal mood, normal affect. SKIN: Warm, Dry, normal turgor, no rashes or lesions noted. Course - Re-evaluation Re-evalutation: 11/06/17 02:48 Diagnostic report text EXAM DESCRIPTION: CT ABDOMEN AND PELVIS WITHOUT CONTRAST CLINICAL HISTORY: abd pain COMPARISON: 10/04/2017 TECHNIQUE: CT of the abdomen and pelvis without IV contrast. FINDINGS: Abdomen: The liver has normal size and density. No calcified gallstones. Coarse calcifications adjacent to the spleen. The pancreas and adrenal glands are unremarkable. Bilateral staghorn renal calculi identified. No definite hydronephrosis. Aortoiliac atherosclerosis. IVC filter in place. No free intraperitoneal air. NG tube identified in the stomach. Pelvis: Prostate is not enlarged. Urinary bladder is decompressed. No free pelvic fluid or lymphadenopathy. Dilated loops of small bowel throughout the abdomen with decompressed loops of distal small bowel. Transit vision point is not definitely identified. Air-filled colon again identified. No definite evidence of appendicitis. Bilateral inguinal hernias. The left internal hernia partially containing a loop of large bowel. No transition point at this level. Bibasilar dependent atelectasis or scarring. Coronary artery atherosclerosis. No destructive bone lesions identified. Degenerative change of the spine, hips, sacroiliac joints. DLP: 381.69 mGy-cm IMPRESSION: 1. Findings compatible with likely partial small bowel obstruction with transition to decompressed loops of small bowel distally. Exact transition point is not definitely identified. 2. Redemonstrated large bowel ileus pattern. 3. Bilateral staghorn renal calculi without evidence of hydronephrosis. This exam was performed according to our departmental dose-optimization program, which includes automated exposure control, adjustment of the mA and/or kV according to patient size and/or use of iterative reconstruction technique. Dictated by: ABEBE SIMON DO [id number] CC: VIVIANE MIRZA DO > Labs- All tests 24 hr 11/06/17 11/06/17 11/06/17 01:32 01:32 01:49 WBC 23.9 H RBC 5.87 H Hgb 15.9 Hct 49.1 MCV 84 MCH 27.2 MCHC 32.5 RDW 15.8 H Plt Count 360 Total Counted 100 Seg Neutrophils % Not Reportable Seg Neuts % (Manual) 76 Band Neutrophils % 11 H Lymphocytes % Not Reportable Lymphocytes % (Manual) 8 L Monocytes % Not Reportable Monocytes % (Manual) 5 Eosinophils % Not Reportable Eosinophils % (Manual) 0 Basophils % Not Reportable Basophils % (Manual) 0 Absolute Neutrophils Not Reportable Abs Neuts (Manual) 20.8 H Absolute Lymphocytes Not Reportable Abs Lymphs (Manual) 1.9 Absolute Monocytes Not Reportable Abs Monocytes (Manual) 1.2 Absolute Eosinophils Not Reportable Absolute Eos (Manual) 0.0 Absolute Basophils Not Reportable Abs Basophils (Manual) 0.0 Toxic Granulation 1+ Large Platelets PRESENT Platelet Comment ADEQUATE Polychromasia SLIGHT Anisocytosis SLIGHT Tear Drop Cells SLIGHT Ovalocytes SLIGHT Sodium 134.5 L Potassium 4.5 Chloride 96 L Carbon Dioxide 23 Anion Gap 16 BUN 50 H Creatinine 0.91 Est GFR ( Amer) > 60 Est GFR (Non-Af Amer) > 60 Glucose 307 H Calcium 9.4 Total Bilirubin 1.0 Direct Bilirubin 0.8 H Neonat Total Bilirubin Not Reportable Neonat Direct Bilirubin Not Reportable Neonat Indirect Bili Not Reportable AST 33 ALT 37 Alkaline Phosphatase 119 Total Protein 6.6 Albumin 3.5 Gastric Occult Blood POSITIVE 11/06/17 03:21 We did try and place a Hanson catheter. There is a small amount of blood at the urethral meatus prior to the process. When the Hanson catheter was introduced there was a grittiness that was felt by the copy room technician. The Hanson catheter was pulled out it appeared that there was stones that were removed when the Hanson catheter was pulled out. CT showed the bladder was not distended. We will not continue to attempt Hanson catheter placement. Creatinine is within normal limits. Will hydrate patient and await urination. - Laboratory Result Diagrams: 11/06/17 01:32 11/06/17 01:32 Laboratory results interpreted by me: 11/06/17 11/06/17 01:32 01:32 WBC 23.9 H RBC 5.87 H RDW 15.8 H Band Neutrophils % 11 H Lymphocytes % (Manual) 8 L Abs Neuts (Manual) 20.8 H Sodium 134.5 L Chloride 96 L BUN 50 H Glucose 307 H Direct Bilirubin 0.8 H Discharge - Discharge Clinical Impression: SBO (small bowel obstruction), Inguinal hernia, Uncontrolled diabetes mellitus Condition: Serious Disposition: ADMITTED INPATIENT Admitting Provider: Surgicalist - Dr. Moy Unit Admitted: Surgical Floor
[2017-11-06 01:51] LABS: HEMATOCRIT 49.1 % (37.9-51.0); HEMOGLOBIN 15.9 g/dL (13.5-17.0); MEAN CORPUSCULAR HEMOGLOBIN 27.2 pg (27.0-33.4); MEAN CORPUSCULAR HGB CONC 32.5 g/dL (32.0-36.0); MEAN CORPUSCULAR VOLUME 84 fl (80-97); PLATELET COUNT 360 10^3/uL (150-450); RED BLOOD COUNT 5.87 10^6/uL (4.35-5.55); RED CELL DISTRIBUTION WIDTH 15.8 % (11.5-14.0); WHITE BLOOD COUNT 23.9 10^3/uL (4.0-10.5)
[2017-11-06 02:00] LABS: ALANINE AMINOTRANSFERASE 37 U/L (21-72); ALBUMIN 3.5 g/dL (3.5-5.0); ALKALINE PHOSPHATASE 119 U/L (38-126); ANION GAP 16 (5-19); ASPARTATE AMINO TRANSFERASE 33 U/L (17-59); BILIRUBIN,DIRECT 0.8 mg/dL (0.0-0.4); BLOOD UREA NITROGEN 50 mg/dL (7-20); CALCIUM 9.4 mg/dL (8.4-10.2); CARBON DIOXIDE 23 mmol/L (22-30); CHLORIDE 96 mmol/L (98-107); GLUCOSE 307 mg/dL (75-110); POTASSIUM 4.5 mmol/L (3.6-5.0); SODIUM 134.5 mmol/L (137-145); TOTAL PROTEIN 6.6 g/dL (6.3-8.2)
[2017-11-06 02:16] LABS: ABSOLUTE LYMPHOCYTES# (MANUAL) 1.9 10^3/uL (0.5-4.7); ABSOLUTE MONOCYTES # (MANUAL) 1.2 10^3/uL (0.1-1.4); ABSOLUTE NEUTROPHILS# (MANUAL) 20.8 10^3/uL (1.7-8.2); BAND NEUTROPHILS % (MANUAL) 11 % (3-5); BASOPHILS % (MANUAL) 0 % (0-2); EOSINOPHILS % (MANUAL) 0 % (0-6); LYMPHOCYTES % (MANUAL) 8 % (13-45); MONOCYTES % (MANUAL) 5 % (3-13); SEGMENTED NEUTROPHILS % (MAN) 76 % (42-78); TOTAL CELLS COUNTED 100
[2017-11-06 02:17] LABS: TOXIC GRANULATION 1+
[2017-11-06 02:18] LABS: ANISOCYTOSIS SLIGHT; OVALOCYTES SLIGHT; POLYCHROMASIA SLIGHT; TEAR DROP CELLS SLIGHT
[2017-11-06 02:19] LABS: PLATELET COMMENT ADEQUATE
[2017-11-06 02:20] LABS: PLATELET LARGE PRESENT
[2017-11-06] MEDS ORDERED: PANTOPRAZOLE SODIUM 40 MG VIAL IV ONE (02:30)
--- NOTE | 2017-11-06 02:31 | RADIOLOGY REPORT (SQ) ---
EXAM DESCRIPTION: CT ABDOMEN AND PELVIS WITHOUT CONTRAST CLINICAL HISTORY: abd pain COMPARISON: 10/04/2017 TECHNIQUE: CT of the abdomen and pelvis without IV contrast. FINDINGS: Abdomen: The liver has normal size and density. No calcified gallstones. Coarse calcifications adjacent to the spleen. The pancreas and adrenal glands are unremarkable. Bilateral staghorn renal calculi identified. No definite hydronephrosis. Aortoiliac atherosclerosis. IVC filter in place. No free intraperitoneal air. NG tube identified in the stomach. Pelvis: Prostate is not enlarged. Urinary bladder is decompressed. No free pelvic fluid or lymphadenopathy. Dilated loops of small bowel throughout the abdomen with decompressed loops of distal small bowel. Transit vision point is not definitely identified. Air-filled colon again identified. No definite evidence of appendicitis. Bilateral inguinal hernias. The left internal hernia partially containing a loop of large bowel. No transition point at this level. Bibasilar dependent atelectasis or scarring. Coronary artery atherosclerosis. No destructive bone lesions identified. Degenerative change of the spine, hips, sacroiliac joints. DLP: 381.69 mGy-cm IMPRESSION: 1. Findings compatible with likely partial small bowel obstruction with transition to decompressed loops of small bowel distally. Exact transition point is not definitely identified. 2. Redemonstrated large bowel ileus pattern. 3. Bilateral staghorn renal calculi without evidence of hydronephrosis. This exam was performed according to our departmental dose-optimization program, which includes automated exposure control, adjustment of the mA and/or kV according to patient size and/or use of iterative reconstruction technique.
[2017-11-06 02:45] LABS: INTERNATIONAL RATION (INR) 1.13; PROTHROMBIN TIME 15.3 SEC (11.4-15.4)
[2017-11-06] MEDS ORDERED: INSULIN REG, HUMAN 100 UNIT/ML 3 ML VIAL (PYX) SUBCUT ONE (02:45)
[2017-11-06] MEDS: NORMAL SALINE 1000 ML 1,000 ML IV PRN ×2 (03:23→09:00)
[2017-11-06] MEDS ORDERED: NORMAL SALINE 1000 ML 1,000 ML IV ONE (05:24)
--- NOTE | 2017-11-06 05:24 | PDOC H&P ---
History of Present Illness Admission Date/PCP: 11/06/17 03:05 Patient complains of: Abdominal pains with N/V History of Present Illness: LAUREN NOE JR is a 67 year old male who was brought to ED from [facility] for abdominal pains with nausea and vomiting. 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 Past Medical History Cardiac Medical History: Reports: Atrial Fibrillation, Congestive Heart Failure , Hypertension Pulmonary Medical History: Reports: Chronic Obstructive Pulmonary Disease (COPD) , Pneumonia Denies: Tuberculosis EENT Medical History: Reports: None Neurological Medical History: Reports: Seizures GI Medical History: Reports: Gastroesophageal Reflux Disease Musculoskeltal Medical History: Reports: Other - C4 injury Psychiatric Medical History: Denies: Depression Past Surgical History Past Surgical History: Reports: Other - tracheostomy Social History Lives with: [facility] Smoking Status: Former Smoker Frequency of Alcohol Use: None Hx Recreational Drug Use: No Drugs: None Hx Prescription Drug Abuse: No Family History Family History: Reviewed & Not Pertinent Parental Family History Reviewed: Yes - claims father from alcholism Children Family History Reviewed: No Sibling(s) Family History Reviewed.: No Medication/Allergy Home Medications: Digoxin [Lanoxin 0.125 mg Tablet] 0.125 mg PO DAILY MDD HOLD FOR HR LESS THAN 60 10/14/17 Diltiazem HCl [Cardizem Cd 120 mg Capsule] 120 mg PO DAILY 10/14/17 Fluticasone Propionate [Flonase Nasal Pompey 50 Mcg/Pompey 16 gm] 1 spray NAREB DAILY 10/14/17 L. Acidophilus/L.bulgaricus [Floranex Tablet] 1 tab PO TID 10/14/17 Lactulose [Constulose 10 gm/15 mL Oral Solution] 20 gm PO QHS 10/14/17 Metoprolol Tartrate [Lopressor 100 mg Tablet] 100 mg PO Q12 10/14/17 Multivitamin [Tab-A-Thiago (Multiple Vitamin) Tablet] 1 tab PO DAILY 10/14/17 Ondansetron [Zofran Odt 4 mg Tablet] 4 mg PO Q6HP PRN 10/14/17 Amox Tr/Potassium Clavulanate [Augmentin "500" Tablet] 1 tab PO Q8 #30 tablet 10/16/17 Aspirin [Aspirin 81 mg Chewable Tablet] 81 mg PO QHS tab.chew 10/16/17 Dextrose [Glutose 40% Gel 15 gm Tube] 15 gm PO PRN PRN tube 10/16/17 Dextrose [Glutose 40% Gel 15 gm Tube] 30 gm PO PRN PRN tube 10/16/17 Digoxin [Lanoxin 0.125 mg Tablet] 0.125 mg PO DAILY tablet 10/16/17 Diltiazem HCl [Cardizem Cd 120 mg Capsule] 120 mg PO DAILY cap.sr.24h 10/16/17 Enoxaparin Sodium [Lovenox Inj 40 mg/0.4 ml Disp.syrin] 40 mg SUBCUT DAILY disp.syrin 10/16/17 Famotidine [Pepcid 20 mg Tablet] 20 mg PO Q12 #60 tablet 10/16/17 Fluticasone Propionate [Flonase Nasal Pompey 50 Mcg/Pom[place]y 16 gm] 1 spray NAREB DAILY spray.pump 10/16/17 Glucagon,Human Recombinant [Glucagen Inj 1 mg Vial] 1 mg SUBCUT PRN PRN vial Ipratropium/Albuterol Sulfate [Duoneb 3 ml Ampul] 3 ml NEB RTQ8HP PRN vial.neb 10/16/17 Metoprolol Tartrate [Lopressor 100 mg Tablet] 100 mg PO Q12 tablet 10/16/17 Multivitamin [Tab-A-Thiago (Multiple Vitamin) Tablet] 1 tab PO DAILY tablet 10/16 Polyethylene Glycol 3350 [Miralax] 119 gm PO DAILY #60 powder 10/16/17 Potassium Chloride [Kaon-Cl 20 Meq/15 ml Udcup] 20 meq PO Q12 udc 10/16/17 Allergies/Adverse Reactions: Sulfa (Sulfonamide Antibiotics) Allergy (Verified 09/26/13 01:48) Review of Systems Review of Systems: patient is not a very good historian Constitutional: PRESENT: other - denies fever/chills Cardiovascular: PRESENT: other - denies chest pains/dyspnea Gastrointestinal: PRESENT: abdominal pain, nausea, vomiting Genitourinary: PRESENT: other - denies dysuria Musculoskeletal: PRESENT: muscle weakness Neurological: PRESENT: weakness - all extremities.non ambulatory Physical Exam General appearance: PRESENT: mild distress Head exam: PRESENT: atraumatic Eye exam: PRESENT: conjunctiva pink Mouth exam: PRESENT: dry mucosa Neck exam: PRESENT: full ROM Respiratory exam: PRESENT: clear to auscultation donovan Cardiovascular exam: PRESENT: tachycardia Pulses: PRESENT: normal radial pulses, normal dorsalis pedis pul Vascular exam: PRESENT: normal capillary refill GI/Abdominal exam: PRESENT: distended, hernia - reducible left inguinal hernia, nontender, soft, tenderness - mild diffuse tenderness Rectal exam: PRESENT: deferred Gentrourinary exam: PRESENT: indwelling catheter - attempted and noted stones with blood and was removed Has bilateral staghorn renal stones on CT scan Neurological exam: PRESENT: alert, oriented to person Psychiatric exam: PRESENT: flat affect Skin exam: PRESENT: dry, warm Results Impressions: Abdomen/Pelvis CT 11/06/17 00:59 IMPRESSION: 1. Findings compatible with likely partial small bowel obstruction with transition to decompressed loops of small bowel distally. Exact transition point is not definitely identified. 2. Redemonstrated large bowel ileus pattern. 3. Bilateral staghorn renal calculi without evidence of hydronephrosis. This exam was performed according to our departmental dose-optimization program, which includes automated exposure control, adjustment of the mA and/or kV according to patient size and/or use of iterative reconstruction technique. Assessment & Plan - Diagnosis (1) Inguinal hernia Qualifiers: Obstruction and gangrene presence: without obstruction or gangrene Is this a current diagnosis for this admission?: Yes (2) SBO (small bowel obstruction) Is this a current diagnosis for this admission?: Yes (3) COPD (chronic obstructive pulmonary disease) Qualifiers: COPD type: unspecified COPD Qualified Code(s): J44.9 - Chronic obstructive pulmonary disease, unspecified Is this a current diagnosis for this admission?: Yes (4) Constipation Qualifiers: Constipation type: unspecified constipation type Qualified Code(s): K59.00 - Constipation, unspecified Is this a current diagnosis for this admission?: Yes (5) GERD (gastroesophageal reflux disease) Is this a current diagnosis for this admission?: Yes (6) Ileus Is this a current diagnosis for this admission?: Yes - Time Time Spent: 30 to 50 Minutes - Inpatient Certification Medical Necessity: Need For IV Fluids, Need for IV Antibiotics, Risk of Complication if Not Cared For in Hospital - Plan Summary Plan Summary: Obtain blood and urin c/s Start IV antibiotics NGT Check lytes,CBC Hydrate May need gastrograffin SBFT to make sure there is no obstruction Medical consult for elevated WBC
[2017-11-06] MEDS ORDERED: CEFTRIAXONE INJ 1000 MG VIAL IV ONE (05:35)
[2017-11-06] MEDS ORDERED: PIPERACILLIN SODIUM/TAZOBACTAM 3.375 GM in NORMAL SALINE 100 ML IV SCH ×5 (07:00→12:00)
--- NOTE | 2017-11-06 08:20 | RADIOLOGY REPORT (SQ) ---
EXAM DESCRIPTION: CHEST SINGLE VIEW COMPLETED DATE/TIME: 11/06/2017 2:09 am REASON FOR STUDY: NG eval COMPARISON: None. FINDINGS: Single view supine portably obtained upper abdominal radiograph. Excludes the inferior an d right abdomen. Performed for nasogastric tube placement. Nasogastric tube has its tip in left upper quadrant consistent with intragastric location. Numerous distended gas-filled loops of bowel as seen on CT from earlier. IMPRESSION: Appropriate nasogastric tube. TECHNICAL DOCUMENTATION: JOB ID: [id number] Reading location - IP/workstation name: [email or web address]
[2017-11-06] MEDS ORDERED: DEXTROSE 50%-WATER 25 GM/50 ML DISP.SYRIN IV PRN ×2 (08:41)
[2017-11-06] MEDS ORDERED: DEXTROSE 40% GEL 15 GM TUBE PO PRN ×2 (08:41)
[2017-11-06] MEDS ORDERED: GLUCAGON,HUMAN RECOMB 1 MG INJ IM PRN (08:41)
--- NOTE | 2017-11-06 08:52 | PDOC CONSULTATION ---
History of Present Illness Admission Date/PCP: 11/06/17 03:05 Patient complains of: Further management of possible infection. History of Present Illness: LAUREN NOE JR is a 67 year old quadriplegic male with history of C4 injury, CAD/CHF, afib, COPD, type 2 diabetes mellitus and small bowel obstruction/ileus was reportedly sent from [facility] since he was having nausea/vomiting and abdominal pain. A CAT scan of the abdomen was done which showed a partial small bowel obstruction so the patient was admitted to the surgical team and an NG tube was placed to intermittent suction. The hospitalist's service was consulted for further management of possible infection. I'm not sure how accurate the history obtained from the patient but he denied any hematemesis, diarrhea or constipation. He said his last bowel movement was 2 days ago. He also denied any fever or urinary symptoms. In the ED, his temperature was 97, heart rate 92, history of a 22, blood pressure 115/78 with oxygen saturation of 91% on room air. His WBC was 23.9 and his hemoglobin was 15.9 with platelets of 360. UA pending. He had about 200 - 300 cc of coffee-ground emesis in the canister. He received 1 g of Rocephin 1. Past Medical History Medical History: Other - Based on previous records. Cardiac Medical History: Reports: Atrial Fibrillation, Congestive Heart Failure , Hypertension Pulmonary Medical History: Reports: Chronic Obstructive Pulmonary Disease (COPD) , Pneumonia Denies: Tuberculosis EENT Medical History: Reports: None Neurological Medical History: Reports: Seizures GI Medical History: Reports: Gastroesophageal Reflux Disease Musculoskeltal Medical History: Reports: Other - C4 injury Psychiatric Medical History: Denies: Depression Past Surgical History Past Surgical History: Reports: Other - tracheostomy Social History Lives with: Group Home Smoking Status: Former Smoker Frequency of Alcohol Use: None Hx Recreational Drug Use: No Drugs: None Hx Prescription Drug Abuse: No Family History Parental Family History Reviewed: No Children Family History Reviewed: No Sibling(s) Family History Reviewed.: No - unable to obtain at this time given patient's mental status. Medication/Allergy Home Medications: Digoxin [Lanoxin 0.125 mg Tablet] 0.125 mg PO DAILY MDD HOLD FOR HR LESS THAN 60 10/14/17 Diltiazem HCl [Cardizem Cd 120 mg Capsule] 120 mg PO DAILY 10/14/17 Fluticasone Propionate [Flonase Nasal Sheridan 50 Mcg/Sheridan 16 gm] 1 spray NAREB DAILY 10/14/17 L. Acidophilus/L.bulgaricus [Floranex Tablet] 1 tab PO TID 10/14/17 Lactulose [Constulose 10 gm/15 mL Oral Solution] 20 gm PO QHS 10/14/17 Metoprolol Tartrate [Lopressor 100 mg Tablet] 100 mg PO Q12 10/14/17 Multivitamin [Tab-A-Thiago (Multiple Vitamin) Tablet] 1 tab PO DAILY 10/14/17 Ondansetron [Zofran Odt 4 mg Tablet] 4 mg PO Q6HP PRN 10/14/17 Amox Tr/Potassium Clavulanate [Augmentin "500" Tablet] 1 tab PO Q8 #30 tablet 10/16/17 Aspirin [Aspirin 81 mg Chewable Tablet] 81 mg PO QHS tab.chew 10/16/17 Dextrose [Glutose 40% Gel 15 gm Tube] 15 gm PO PRN PRN tube 10/16/17 Dextrose [Glutose 40% Gel 15 gm Tube] 30 gm PO PRN PRN tube 10/16/17 Digoxin [Lanoxin 0.125 mg Tablet] 0.125 mg PO DAILY tablet 10/16/17 Diltiazem HCl [Cardizem Cd 120 mg Capsule] 120 mg PO DAILY cap.sr.24h 10/16/17 Enoxaparin Sodium [Lovenox Inj 40 mg/0.4 ml Disp.syrin] 40 mg SUBCUT DAILY disp.syrin 10/16/17 Famotidine [Pepcid 20 mg Tablet] 20 mg PO Q12 #60 tablet 10/16/17 Fluticasone Propionate [Flonase Nasal Sheridan 50 Mcg/Sheridan 16 gm] 1 spray NAREB DAILY spray.pump 10/16/17 Glucagon,Human Recombinant [Glucagen Inj 1 mg Vial] 1 mg SUBCUT PRN PRN vial Ipratropium/Albuterol Sulfate [Duoneb 3 ml Ampul] 3 ml NEB RTQ8HP PRN vial.neb 10/16/17 Metoprolol Tartrate [Lopressor 100 mg Tablet] 100 mg PO Q12 tablet 10/16/17 Multivitamin [Tab-A-Thiago (Multiple Vitamin) Tablet] 1 tab PO DAILY tablet 10/16 Polyethylene Glycol 3350 [Miralax] 119 gm PO DAILY #60 powder 10/16/17 Potassium Chloride [Kaon-Cl 20 Meq/15 ml Udcup] 20 meq PO Q12 udc 10/16/17 Allergies/Adverse Reactions: Sulfa (Sulfonamide Antibiotics) Allergy (Verified 09/26/13 01:48) Review of Systems ROS unobtainable: Other - Unable to obtain given patient's mental status. Physical Exam Vital Signs: Temp Pulse Resp BP Pulse Ox 97.9 F 39 H 104/70 85 L 11/06/17 03:15 11/06/17 05:01 11/06/17 05:01 11/06/17 04:01 Intake & Output 11/04/17 11/05/17 11/06/17 06:59 06:59 06:59 Output Total 0 Balance 0 Weight 61.6 kg General appearance: PRESENT: no acute distress, well-developed Head exam: PRESENT: atraumatic, normocephalic Eye exam: PRESENT: conjunctiva pink, PERRLA. ABSENT: scleral icterus Mouth exam: PRESENT: dry mucosa Neck exam: PRESENT: full ROM, tracheostomy - hole. Respiratory exam: PRESENT: decreased breath sounds, rales. ABSENT: rhonchi, wheezes Cardiovascular exam: PRESENT: RRR, +S1, +S2 Pulses: PRESENT: normal dorsalis pedis pul GI/Abdominal exam: PRESENT: distended, firm, tenderness. ABSENT: rebound - markedly decreased bowel sounds. Rectal exam: PRESENT: deferred Extremities exam: ABSENT: pedal edema Neurological exam: PRESENT: alert, altered, motor sensory deficit - quadreplegic. Skin exam: PRESENT: dry, warm. ABSENT: erythema, rash Results Laboratory Results: WBC 23.9, hemoglobin 15.9, hematocrit 49.1, RDW 15.8, MCV 84, platelets 360. T/INR 15.3/1.13. BUN/creatinine 50/0.91. EKG Comments: none. Impressions: Abdomen/Pelvis CT 11/06/17 00:59 IMPRESSION: 1. Findings compatible with likely partial small bowel obstruction with transition to decompressed loops of small bowel distally. Exact transition point is not definitely identified. 2. Redemonstrated large bowel ileus pattern. 3. Bilateral staghorn renal calculi without evidence of hydronephrosis. This exam was performed according to our departmental dose-optimization program, which includes automated exposure control, adjustment of the mA and/or kV according to patient size and/or use of iterative reconstruction technique. Assessment & Plan - Diagnosis (1) Leukocytosis Qualifiers: Leukocytosis type: unspecified Qualified Code(s): D72.829 - Elevated white blood cell count, unspecified Is this a current diagnosis for this admission?: Yes Plan: secondary to infection and/or inflammation/ischemia. CAT scan abdomen reviewed. We will follow-up blood cultures, UA and lactic acid level and start Zosyn. (2) Hematemesis Qualifiers: Nausea presence: unspecified Qualified Code(s): K92.0 - Hematemesis Is this a current diagnosis for this admission?: Yes Plan: Further management per the primary team. Of note, Lovenox prophylaxis was listed on his medications' list which needs to be clarified. (3) Type 2 diabetes mellitus Qualifiers: Diabetes mellitus complication status: with unspecified complications Is this a current diagnosis for this admission?: No Plan: Will start Humalog sliding scale awaiting clarification of his medications' list. (4) Partial small bowel obstruction Is this a current diagnosis for this admission?: Yes Plan: and/ileus, NG tube in place to intermittent suction. Management per primary team. Of note, the patient had similar presentation on 09/2017. He was thought to have a right lower lobe pneumonia for which he was started on Vanco and Zosyn empirically and transitioned to Augmentin. Thank you very much for allowing me to participate in taking care of this patient. We will follow-up with you. - Time Time Spent: Greater than 70 Minutes Anticipated discharge: SNF - Inpatient Certification Based on my medical assessment, after consideration of the patient's comorbidities, presenting symptoms, or acuity I expect that the services needed warrant INPATIENT care.: Yes I certify that my determination is in accordance with my understanding of Medicare's requirements for reasonable and necessary INPATIENT services [42 CFR 412.3e].: Yes
[2017-11-06] MEDS: FAMOTIDINE INJ/PF 20 MG/2 ML SDV IV SCH ×2 (10:18→21:46)
[2017-11-06] MEDS: NORMAL SALINE 100 ML with PANTOPRAZOLE SODIUM 80 MG IV PRN ×4 (10:47→21:46)
--- NOTE | 2017-11-06 11:11 | PDOC CONSULTATION ---
Consultation Consult Date: 11/06/17 Attending physician:: DEL LILLY Consult reason:: Nephrolithiasis, difficult maldonado placement. History of Present Illness Admission Date/PCP: 11/06/17 03:05 Patient complains of: History obtained from medical records, medical providers. History of Present Illness: 67/M incomplete C4 quad, limited historian, admitted for bowel obstruction management. Urology consulted due to difficulty with maldonado catheter placement and high volume stone disease. Past Medical History Cardiac Medical History: Reports: Atrial Fibrillation, Congestive Heart Failure , Hypertension, Other Pulmonary Medical History: Reports: Chronic Obstructive Pulmonary Disease (COPD) , Pneumonia Denies: Tuberculosis EENT Medical History: Reports: None Neurological Medical History: Reports: Seizures Renal/ Medical History: Reports: Nephrolithiasis, Other - bladder and urethral calculi GI Medical History: Reports: Gastroesophageal Reflux Disease Musculoskeltal Medical History: Reports: Other - C4 injury Psychiatric Medical History: Denies: Depression Past Surgical History Past Surgical History: Reports: Other - tracheostomy Social History Information Source: [facility] Personnel, [facility] Records, Outside Facility Records Lives with: Alf Smoking Status: Former Smoker Frequency of Alcohol Use: None Hx Recreational Drug Use: No Drugs: None Hx Prescription Drug Abuse: No Family History Family History: Reviewed & Not Pertinent Parental Family History Reviewed: No Children Family History Reviewed: No Sibling(s) Family History Reviewed.: No Medication/Allergy Home Medications: Digoxin [Lanoxin 0.125 mg Tablet] 0.125 mg PO DAILY MDD HOLD FOR HR LESS THAN 60 10/14/17 Diltiazem HCl [Cardizem Cd 120 mg Capsule] 120 mg PO DAILY 10/14/17 Fluticasone Propionate [Flonase Nasal [place] 50 Mcg/Flatgap 16 gm] 1 spray NAREB DAILY 10/14/17 L. Acidophilus/L.bulgaricus [Floranex Tablet] 1 tab PO TID 10/14/17 Lactulose [Constulose 10 gm/15 mL Oral Solution] 20 gm PO QHS 10/14/17 Metoprolol Tartrate [Lopressor 100 mg Tablet] 100 mg PO Q12 10/14/17 Multivitamin [Tab-A-Thiago (Multiple Vitamin) Tablet] 1 tab PO DAILY 10/14/17 Ondansetron [Zofran Odt 4 mg Tablet] 4 mg PO Q6HP PRN 10/14/17 Amox Tr/Potassium Clavulanate [Augmentin "500" Tablet] 1 tab PO Q8 #30 tablet 10/16/17 Aspirin [Aspirin 81 mg Chewable Tablet] 81 mg PO QHS tab.chew 10/16/17 Dextrose [Glutose 40% Gel 15 gm Tube] 15 gm PO PRN PRN tube 10/16/17 Dextrose [Glutose 40% Gel 15 gm Tube] 30 gm PO PRN PRN tube 10/16/17 Digoxin [Lanoxin 0.125 mg Tablet] 0.125 mg PO DAILY tablet 10/16/17 Diltiazem HCl [Cardizem Cd 120 mg Capsule] 120 mg PO DAILY cap.sr.24h 10/16/17 Enoxaparin Sodium [Lovenox Inj 40 mg/0.4 ml Disp.syrin] 40 mg SUBCUT DAILY disp.syrin 10/16/17 Famotidine [Pepcid 20 mg Tablet] 20 mg PO Q12 #60 tablet 10/16/17 Fluticasone Propionate [Flonase Nasal Flatgap 50 Mcg/Flatgap 16 gm] 1 spray NAREB DAILY spray.pump 10/16/17 Glucagon,Human Recombinant [Glucagen Inj 1 mg Vial] 1 mg SUBCUT PRN PRN vial Ipratropium/Albuterol Sulfate [Duoneb 3 ml Ampul] 3 ml NEB RTQ8HP PRN vial.neb 10/16/17 Metoprolol Tartrate [Lopressor 100 mg Tablet] 100 mg PO Q12 tablet 10/16/17 Multivitamin [Tab-A-Thiago (Multiple Vitamin) Tablet] 1 tab PO DAILY tablet 10/16 Polyethylene Glycol 3350 [Miralax] 119 gm PO DAILY #60 powder 10/16/17 Potassium Chloride [Kaon-Cl 20 Meq/15 ml Udcup] 20 meq PO Q12 udc 10/16/17 Allergies/Adverse Reactions: celecoxib [From Celebrex] Allergy (Verified 11/06/17 08:51) Penicillins Allergy (Verified 11/06/17 08:51) Sulfa (Sulfonamide Antibiotics) Allergy (Verified 11/06/17 08:55) sulfamethoxazole [From Bactrim] Allergy (Verified 11/06/17 08:51) trimethoprim [From Bactrim] Allergy (Verified 11/06/17 08:51) Review of Systems ROS unobtainable: Due to mental status Physical Exam Vital Signs: Temp Pulse Resp BP Pulse Ox 97.8 F 39 H 104/70 85 L 11/06/17 10:20 11/06/17 05:01 11/06/17 05:01 11/06/17 04:01 Intake & Output 11/05/17 11/06/17 11/07/17 06:59 06:59 07:59 Output Total 0 Balance 0 Weight 61.6 kg General appearance: PRESENT: thin Eye exam: PRESENT: conjunctiva pink Ear exam: PRESENT: normal external ear exam Mouth exam: PRESENT: dry mucosa Respiratory exam: ABSENT: accessory muscle use Cardiovascular exam: ABSENT: bradycardia Pulses: PRESENT: normal carotid pulses GI/Abdominal exam: PRESENT: distended, hypoactive bowel sounds Rectal exam: PRESENT: deferred Gentrourinary exam: PRESENT: other - circ, bilat testes descended Musculoskeletal exam: PRESENT: other - c4 incomplete quad. ABSENT: ambulatory, full ROM Neurological exam: PRESENT: altered, oriented to person. ABSENT: oriented to place, oriented to time Results Impressions: Chest X-Ray 11/06/17 00:00 IMPRESSION: Appropriate nasogastric tube. Abdomen/Pelvis CT 11/06/17 00:59 IMPRESSION: 1. Findings compatible with likely partial small bowel obstruction with transition to decompressed loops of small bowel distally. Exact transition point is not definitely identified. 2. Redemonstrated large bowel ileus pattern. 3. Bilateral staghorn renal calculi without evidence of hydronephrosis. This exam was performed according to our departmental dose-optimization program, which includes automated exposure control, adjustment of the mA and/or kV according to patient size and/or use of iterative reconstruction technique. Status: Image reviewed by - I personally reviewed all images associated with the CT abd/pelvis from 11/06/2017. High volume bilateral staghorn calcluli extending into all calyces and UPJ without hydronephrosis. Bladder calculi present with high volume urethral calcifications along the pendulous portion. Dilated loops of small bowel consistent with ileus. Rest per radiology. Assessment & Plan - Diagnosis (1) Nephrolithiasis Is this a current diagnosis for this admission?: Yes (2) Staghorn renal calculus Is this a current diagnosis for this admission?: No (3) Bladder calculus Is this a current diagnosis for this admission?: No (4) Urethral calculus Is this a current diagnosis for this admission?: No (5) Leukocytosis Qualifiers: Leukocytosis type: unspecified Qualified Code(s): D72.829 - Elevated white blood cell count, unspecified Is this a current diagnosis for this admission?: Yes (6) SBO (small bowel obstruction) Is this a current diagnosis for this admission?: Yes (7) Type 2 diabetes mellitus Qualifiers: Diabetes mellitus complication status: with unspecified complications Is this a current diagnosis for this admission?: No (8) CHF (congestive heart failure) Qualifiers: Heart failure chronicity: chronic (9) COPD (chronic obstructive pulmonary disease) Qualifiers: COPD type: unspecified COPD Qualified Code(s): J44.9 - Chronic obstructive pulmonary disease, unspecified Is this a current diagnosis for this admission?: Yes (11) GERD (gastroesophageal reflux disease) Is this a current diagnosis for this admission?: Yes - Time Time Spent: 50 to 70 Minutes Medications reviewed and adjusted accordingly: Yes Disposition: Admit for observation. - Inpatient Certification Based on my medical assessment, after consideration of the patient's comorbidities, presenting symptoms, or acuity I expect that the services needed warrant INPATIENT care.: Yes I certify that my determination is in accordance with my understanding of Medicare's requirements for reasonable and necessary INPATIENT services [42 CFR 412.3e].: Yes Medical Necessity: Failure to Improve With Outpatient Therapy, Need For IV Fluids, Need for IV Antibiotics - Plan Summary Plan Summary: Creatinine 0.9 but likely a poor marker for renal disease in this patient given his muscle wasting. No hydronephrosis or bladder distention on CT. If creatinine increases or pt develops hydronephrosis on subsequent imaging, I would favor nephrostomy tube placement to monitor urine output as indwelling ureteral stents would be technically challenging and likely calcify/obstruct rapidly.
--- NOTE | 2017-11-06 12:18 | Operative Report ---
Operative Report DATE OF SURGERY: 11/06/17 PREOPERATIVE DIAGNOSIS: Sepsis POSTOPERATIVE DIAGNOSIS: Same OPERATION: Insertion right subclavian central venous catheter. Focused ultrasound of the right SURGEON: STACY FUNK ANESTHESIA: Local TISSUE REMOVED OR ALTERED: None COMPLICATIONS: None ESTIMATED BLOOD LOSS: Scant INTRAOPERATIVE FINDINGS: See below PROCEDURE: Informed consent was obtained. Right neck was scanned with the variable frequency linear transducer. The right internal iliac vein was very narrow. Therefore we approach the right subclavian vein. The patient was placed in Trendelenburg the right subclavian area was exposed , prepped and draped in a sterile fashion. Surgical plan and surgical timeout discussed. The right subclavian area was anesthetized with 1% lidocaine without epinephrine. An 18-gauge needle and wire were threaded into the right subclavian vein. The tract was dilated up, the dilator removed, and the triple- lumen central venous access catheter was threaded into the right subclavian vein uneventfully to the hub. There was excellent aspiration and flush of saline through all 3 lumens. The catheter was affixed to the skin with a Biopatch and 2-0 silk suture; sterile dressing applied. The patient tolerated the procedure well. There were no complications. Portable upright chest x-ray the catheter in the atrium, no evidence of pneumothorax.
--- NOTE | 2017-11-06 12:26 | PDOC PROGRESS REPORT ---
Subjective Progress Note for:: 11/06/17 Reason For Visit: SMALL BOWEL OBSTRUCTION,DILATED COLON,UTI,COPD, Since patient arrived in the emergency department, he had a IV fluids established, nasogastric drainage approximately 400 cc of bloody gastric output. He has not voided since arrival. Was seen by urologist and felt not to be a candidate for obtaining us bladder drain transurethral drainage because of contracted bladder and extensive high-volume gallstones. Patient has bilateral renal, calyceal and UPJ stones. If drainage of the urinary system is required, percutaneous bilateral nephrostomy tubes may be attempted. The patient poor historian, he apparently dribbles through his urethra that has been his urine output. He remains extremely dehydrated. Physical Exam Vital Signs: Temp Pulse Resp BP Pulse Ox 97.8 F 33 H 117/80 96 11/06/17 10:20 11/06/17 11:01 11/06/17 11:01 11/06/17 07:01 Intake & Output 11/05/17 11/06/17 11/07/17 06:59 06:59 07:59 Output Total 0 Balance 0 Weight 61.6 kg General appearance: PRESENT: other - Cachectic male Neck exam: PRESENT: other - Evidence of previous tracheostomy GI/Abdominal exam: PRESENT: other - Abdomen remains distended, tympanitic but no peritoneal signs no rigidity. There are no groin hernias. Results Impressions: Abdomen/Pelvis CT 11/06/17 00:59 IMPRESSION: 1. Findings compatible with likely partial small bowel obstruction with transition to decompressed loops of small bowel distally. Exact transition point is not definitely identified. 2. Redemonstrated large bowel ileus pattern. 3. Bilateral staghorn renal calculi without evidence of hydronephrosis. This exam was performed according to our departmental dose-optimization program, which includes automated exposure control, adjustment of the mA and/or kV according to patient size and/or use of iterative reconstruction technique. Assessment & Plan - Diagnosis (1) Partial small bowel obstruction Is this a current diagnosis for this admission?: Yes Plan: Recurrent small bowel obstruction of uncertain position; patient had Gastrografin enema 2 weeks ago showed no colonic obstruction. He is clinically deteriorated has a leukocytosis, and is profoundly dehydrated. Recommendations: 1. Patient was admitted to the surgical service, but does not need an operation right now although he may come to require exploratory laparotomy. Spoke at length with the sister, Sammie phone #[phone], about level of aggressiveness of care, CODE STATUS, he is about undergoing exploratory surgery , need for continuous nephrostomy tubes etc. The patient's sister will arrive at bedside later this afternoon, in conjunction with other family members, and the patient himself, discuss aggressiveness of care, CODE STATUS etc. There we will decide whether patient should be kept [facility], transfer to higher level of care. 2. Central line may be used
[2017-11-06] MEDS: INSULIN LISPRO 100 UNIT/ML 3 ML VIAL SUBCUT PRN (13:27)
[2017-11-06] MEDS: MEROPENEM 1 GM in NORMAL SALINE 100 ML IV SCH ×2 (15:04→21:46)
--- NOTE | 2017-11-06 16:57 | RADIOLOGY REPORT (SQ) ---
EXAM DESCRIPTION: CHEST SINGLE VIEW COMPLETED DATE/TIME: 11/06/2017 12:09 pm REASON FOR STUDY: central line placement COMPARISON: 11/06/2017 EXAM PARAMETERS: NUMBER OF VIEWS: One view. TECHNIQUE: Single frontal radiographic view of the chest acquired. RADIATION DOSE: NA LIMITATIONS: None. FINDINGS: LUNGS AND PLEURA: Stable elevation of the right hemidiaphragm with associated airspace dis ease. No new airspace opacities. No significant pleural effusion or pneumothorax. MEDIASTINUM AND HILAR STRUCTURES: No masses. Contour normal. HEART AND VASCULAR STRUCTURES: Heart stable in size. Normal vasculature. BONES: No acute findings. HARDWARE: Interval placement of right central venous catheter which terminates deep within the right atrium or possibly within the inferior vena cava. Stable position of nasogastric tube and IVC filter . OTHER: No other significant finding. IMPRESSION: INTERVAL PLACEMENT OF RIGHT CENTRAL VENOUS CATHETER WHICH TERMINATES DEEP WITHIN THE RIG HT ATRIUM ARE POSSIBLE WITHIN THE INFERIOR VENA CAVA. CONSIDER READJUSTMENT. OTHERWISE STABLE APPEA LIAM OF THE CHEST. TECHNICAL DOCUMENTATION: JOB ID: [id number] [employer]- All Rights Reserved Reading location - IP/workstation name: [email or web address]
--- NOTE | 2017-11-06 19:08 | RADIOLOGY REPORT (SQ) ---
EXAM DESCRIPTION: CT HEAD WITHOUT COMPLETED DATE/TIME: 11/06/2017 6:52 pm REASON FOR STUDY: Eye gaze abnormality. COMPARISON: 04/22/2008 TECHNIQUE: Axial images acquired through the brain without intravenous contrast. Images reviewed wi th bone, brain and subdural windows. Images stored on PACS. All CT scanners at this facility use dose modulation, iterative reconstruction, and/or weight based d osing when appropriate to reduce radiation dose to as low as reasonably achievable (ALARA). [facility]: Dose Right [facility]: CareDose [facility]: Dose Right [facility]: Teradose 4D [facility]: Smart Technologies RADIATION DOSE: CT Rad equipment meets quality standard of care and radiation dose reduction techniq ues were employed. CTDIvol: 64.6 mGy. DLP: 1034 mGy-cm.mGy. LIMITATIONS: None. FINDINGS: VENTRICLES: Ventriculomegaly progressed in the study interval. CEREBRUM: No masses. No hemorrhage. No midline shift. Areas of low density in the white matter mos t likely due to chronic micro-vascular ischemic change. No evidence for acute infarction. CEREBELLUM: No masses. No hemorrhage. No alteration of density. No evidence for acute infarction. EXTRAAXIAL SPACES: Age-related involutional change. No fluid collections. No masses. ORBITS AND GLOBE: No intra- or extraconal masses. Normal contour of globe without masses. CALVARIUM: Right temporal craniotomy changes, stable. PARANASAL SINUSES: No fluid or mucosal thickening. SOFT TISSUES: No mass or hematoma. OTHER: Healed fracture deformity of C1. IMPRESSION: CHRONIC CHANGES OF ATROPHY AND MICROVASCULAR ISCHEMIA. RIGHT TEMPORAL CRANIOTOMY. NO A CUTE PROCESS. EVIDENCE OF ACUTE STROKE: NO. TECHNICAL DOCUMENTATION: JOB ID: [id number] Quality ID # [id number]: Final reports with documentation of one or more dose reduction techniques (e.g., Au tomated exposure control, adjustment of the mA and/or kV according to patient size, use of iterative reconstruction technique) 2010 [employer]- All Rights Reserved Reading location - IP/workstation name: [email or web address]
[2017-11-06] MEDS: DILTIAZEM HCL/D5W 125 MG/125 ML RTUINJ IV PRN (23:29)
[2017-11-07] MEDS: MEROPENEM 1 GM in NORMAL SALINE 100 ML IV SCH ×2 (05:18→13:29)
[2017-11-07 05:49] LABS: HEMATOCRIT 37.3 % (37.9-51.0); MEAN CORPUSCULAR HEMOGLOBIN 26.9 pg (27.0-33.4); MEAN CORPUSCULAR HGB CONC 32.6 g/dL (32.0-36.0); MEAN CORPUSCULAR VOLUME 83 fl (80-97); PLATELET COUNT 266 10^3/uL (150-450); RED BLOOD COUNT 4.52 10^6/uL (4.35-5.55); RED CELL DISTRIBUTION WIDTH 15.5 % (11.5-14.0); WHITE BLOOD COUNT 24.2 10^3/uL (4.0-10.5)
[2017-11-07 06:00] LABS: ALANINE AMINOTRANSFERASE 29 U/L (21-72); ALBUMIN 2.4 g/dL (3.5-5.0); ALKALINE PHOSPHATASE 87 U/L (38-126); ANION GAP 15 (5-19); ASPARTATE AMINO TRANSFERASE 18 U/L (17-59); BILIRUBIN,DIRECT 0.3 mg/dL (0.0-0.4); BILIRUBIN,TOTAL 0.6 mg/dL (0.2-1.3); BLOOD UREA NITROGEN 46 mg/dL (7-20); CARBON DIOXIDE 20 mmol/L (22-30); CHLORIDE 108 mmol/L (98-107); GLUCOSE 221 mg/dL (75-110); LIPASE 74.2 U/L (23-300); POTASSIUM 3.1 mmol/L (3.6-5.0); SODIUM 143.4 mmol/L (137-145); TOTAL PROTEIN 4.6 g/dL (6.3-8.2)
[2017-11-07 06:16] LABS: FREE T3 1.84 pg/mL (2.77-5.27); FREE T4 (FREE THYROXINE) 1.98 ng/dL (0.78-2.19)
[2017-11-07 06:22] LABS: ABSOLUTE LYMPHOCYTES# (MANUAL) 2.7 10^3/uL (0.5-4.7); ABSOLUTE MONOCYTES # (MANUAL) 1.2 10^3/uL (0.1-1.4); ABSOLUTE NEUTROPHILS# (MANUAL) 20.3 10^3/uL (1.7-8.2); BAND NEUTROPHILS % (MANUAL) 6 % (3-5); BASOPHILS % (MANUAL) 0 % (0-2); EOSINOPHILS % (MANUAL) 0 % (0-6); LYMPHOCYTES % (MANUAL) 11 % (13-45); MONOCYTES % (MANUAL) 5 % (3-13); SEGMENTED NEUTROPHILS % (MAN) 78 % (42-78); TOTAL CELLS COUNTED 100
[2017-11-07 06:24] LABS: ANISOCYTOSIS 1+; BURR CELLS SLIGHT; PLATELET COMMENT ADEQUATE; PLATELET LARGE PRESENT; POIKILOCYTOSIS SLIGHT; SCHISTOCYTES SLIGHT; TOXIC GRANULATION 2+
[2017-11-07 06:29] LABS: THYROID STIMULATING HORMONE 1.23 uIU/mL (0.47-4.68)
[2017-11-07] MEDS: INSULIN LISPRO 100 UNIT/ML 3 ML VIAL SUBCUT PRN ×2 (06:41→12:23)
[2017-11-07 07:14] LABS: HEMOGLOBIN 12.2 g/dL (13.5-17.0)
[2017-11-07] MEDS ORDERED: METOPROLOL TARTRATE PF/INJ 5 MG/5 ML SDV IV ONE (10:36)
[2017-11-07] MEDS: FAMOTIDINE INJ/PF 20 MG/2 ML SDV IV SCH ×2 (10:37→21:43)
--- NOTE | 2017-11-07 11:34 | PDOC PROGRESS REPORT ---
Subjective Progress Note for:: 11/07/17 Reason For Visit: SMALL BOWEL OBSTRUCTION,DILATED COLON,UTI,COPD, Patient more awake alert communicative in the ICU; had a CT scan of the head official report not posted; my review revealed reveal atrophy, no evidence of acute hemorrhagic or ischemic stroke. Patient is more comfortable. Physical Exam Vital Signs: Temp Pulse Resp BP Pulse Ox 96.7 F L 103 H 27 H 124/83 97 11/07/17 08:00 11/07/17 07:32 11/07/17 06:14 11/07/17 06:14 11/07/17 06:14 Intake & Output 11/06/17 11/07/17 11/08/17 05:59 06:59 06:59 Intake Total Output Total Balance Weight General appearance: PRESENT: other - Arouses follows simple commands, no eye rolling GI/Abdominal exam: PRESENT: other - Soft, less distended nontender minimal tympany Results Laboratory Results: 11/07/17 05:25 11/07/17 05:25 11/06/17 11/07/17 11/07/17 12:22 05:25 05:25 WBC 24.2 H RBC 4.52 Hgb 12.2 L D Hct 37.3 L MCV 83 MCH 26.9 L MCHC 32.6 RDW 15.5 H Plt Count 266 Seg Neutrophils % Not Reportable Lymphocytes % Not Reportable Monocytes % Not Reportable Eosinophils % Not Reportable Basophils % Not Reportable Absolute Neutrophils Not Reportable Absolute Lymphocytes Not Reportable Absolute Monocytes Not Reportable Absolute Eosinophils Not Reportable Absolute Basophils Not Reportable Sodium 143.4 Potassium 3.1 L Chloride 108 H Carbon Dioxide 20 L Anion Gap 15 BUN 46 H Creatinine 1.00 Est GFR ( Amer) > 60 Est GFR (Non-Af Amer) > 60 Glucose 221 H Lactic Acid 1.5 Calcium 8.0 L Total Bilirubin 0.6 AST 18 ALT 29 Alkaline Phosphatase 87 Total Protein 4.6 L Albumin 2.4 L Lipase 74.2 TSH Free T4 Free T3 pg/mL 11/07/17 05:25 WBC RBC Hgb Hct MCV MCH MCHC RDW Plt Count Seg Neutrophils % Lymphocytes % Monocytes % Eosinophils % Basophils % Absolute Neutrophils Absolute Lymphocytes Absolute Monocytes Absolute Eosinophils Absolute Basophils Sodium Potassium Chloride Carbon Dioxide Anion Gap BUN Creatinine Est GFR ( Amer) Est GFR (Non-Af Amer) Glucose Lactic Acid Calcium Total Bilirubin AST ALT Alkaline Phosphatase Total Protein Albumin Lipase TSH 1.23 Free T4 1.98 Free T3 pg/mL 1.84 L Impressions: Chest X-Ray 11/06/17 00:00 IMPRESSION: Appropriate nasogastric tube. Head CT 11/06/17 00:00 IMPRESSION: CHRONIC CHANGES OF ATROPHY AND MICROVASCULAR ISCHEMIA. RIGHT TEMPORAL CRANIOTOMY. NO ACUTE PROCESS. EVIDENCE OF ACUTE STROKE: NO. Abdomen/Pelvis CT 11/06/17 00:59 IMPRESSION: 1. Findings compatible with likely partial small bowel obstruction with transition to decompressed loops of small bowel distally. Exact transition point is not definitely identified. 2. Redemonstrated large bowel ileus pattern. 3. Bilateral staghorn renal calculi without evidence of hydronephrosis. This exam was performed according to our departmental dose-optimization program, which includes automated exposure control, adjustment of the mA and/or kV according to patient size and/or use of iterative reconstruction technique. Assessment & Plan - Diagnosis (1) Partial small bowel obstruction Is this a current diagnosis for this admission?: Yes Plan: Hospital day 2, clinically improved abdominal distention, consistent with a partial obstructive picture. Patient's eye rolling and disconjugate gaze all; grossly unremarkable CT scan by general surgeons interpretation Persisting leukocytosis possibly of urinary tract etiology. Patient is voiding in diaper amount of urine difficult to quantitate: No foul smell Recommendations: 1. I believe patient can be transferred from the ICU to the floor 2. Continue nasogastric suctioning 3. Continue empiric antibiotic therapy for leukocytosis. 4. We will respect patient's CODE STATUS of DNR
[2017-11-07] MEDS: NORMAL SALINE 100 ML with PANTOPRAZOLE SODIUM 80 MG IV PRN ×4 (12:22→21:42)
--- NOTE | 2017-11-07 16:14 | PDOC CONSULTATION ---
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 A CAT scan of the abdomen was done which showed a partial small bowel obstruction so the patient was admitted to the surgical team and an NG tube was placed to intermittent suction. The hospitalist's service was consulted for further management of possible infection. I'm not sure how accurate the history obtained from the patient but he denied any hematemesis, diarrhea or constipation. He said his last bowel movement was 2 days ago. He also denied any fever or urinary symptoms. In the ED, his temperature was 97, heart rate 92, history of a 22, blood pressure 115/78 with oxygen saturation of 91% on room air. His WBC was 23.9 and his hemoglobin was 15.9 with platelets of 360. UA pending. He had about 200 - 300 cc of coffee-ground emesis in the canister. He received 1 g of Rocephin 1. I was asked to evaluate patient because of atrial fibrillation with rapid ventricular response. Patient's brother at bedside who is power of divorce attorney and surrogate decision-maker. He confirms DNR status. Patient has been basically bedbound for last 8 years since injury to his neck vertebrae. Patient on questioning denied any chest pain. He is noted to be comfortable without any shortness of breath. Past Medical History Cardiac Medical History: Reports: Atrial Fibrillation, Congestive Heart Failure , Hypertension, Other Pulmonary Medical History: Reports: Chronic Obstructive Pulmonary Disease (COPD) , Pneumonia Denies: Tuberculosis EENT Medical History: Reports: None Neurological Medical History: Reports: Seizures Renal/ Medical History: Reports: Nephrolithiasis, Other - bladder and urethral calculi GI Medical History: Reports: Gastroesophageal Reflux Disease Musculoskeltal Medical History: Reports: Other - C4 injury Psychiatric Medical History: Denies: Depression Past Surgical History Past Surgical History: Reports: Other - tracheostomy Social History Information Source: Relative Lives with: [facility] Smoking Status: Former Smoker Frequency of Alcohol Use: None Hx Recreational Drug Use: No Drugs: None Hx Prescription Drug Abuse: No - Advance Directive Resuscitation Status: Do Not Resuscitate Surrogate healthcare decision maker:: Patient's brother is the surrogate decision-maker Family History Family History: Reviewed & Not Pertinent Parental Family History Reviewed: Yes Children Family History Reviewed: Yes Sibling(s) Family History Reviewed.: Yes Medication/Allergy Home Medications: Aspirin [Ecotrin 81 mg EC Tablet] 81 mg PO DAILY 11/06/17 Digoxin [Lanoxin 0.125 mg Tablet] 0.125 mg PO DAILY 11/06/17 Diltiazem HCl [Cardizem Cd 120 mg Capsule] 120 mg PO DAILY 11/06/17 Famotidine [Pepcid 20 mg Tablet] 20 mg PO BID 11/06/17 Fluticasone Propionate [Flonase Nasal Watson 50 Mcg/Watson 16 gm] 1 spray NASL DAILY 11/06/17 Ipratropium/Albuterol Sulfate [Iprat-Albut 0.5-3(2.5) mg/3 ml] 3 ml NEB Q8 11/06 Lactobacillus Acidophilus [Acidophilus Lactobacilli] 500 mg PO BID 11/06/17 Lactulose [Enulose 10 gm/15 mL Oral Solution] 30 mg PO QHS 11/06/17 Metoprolol Tartrate [Lopressor 100 mg Tablet] 100 mg PO Q12 11/06/17 Multivitamin [Tab-A-Thiago (Multiple Vitamin) Tablet] 1 tab PO DAILY 11/06/17 Ondansetron HCl [Zofran 4 mg Tablet] 4 mg PO Q6HP PRN 11/06/17 Polyethylene Glycol 3350 [Miralax Powder 17 gm/Packet] 17 gm PO DAILY 11/06/17 Allergies/Adverse Reactions: celecoxib [From Celebrex] Allergy (Verified 11/06/17 08:51) Penicillins Allergy (Verified 11/06/17 08:51) Sulfa (Sulfonamide Antibiotics) Allergy (Verified 11/06/17 08:55) sulfamethoxazole [From Bactrim] Allergy (Verified 11/06/17 08:51) trimethoprim [From Bactrim] Allergy (Verified 11/06/17 08:51) Review of Systems ROS unobtainable: Due to mental status Constitutional: PRESENT: as per HPI Physical Exam Vital Signs: Temp Pulse Resp BP Pulse Ox 97.5 F 103 H 21 H 104/83 97 11/07/17 12:00 11/07/17 07:32 11/07/17 15:14 11/07/17 15:14 11/07/17 15:14 Intake & Output 11/06/17 11/07/17 11/08/17 05:59 06:59 06:59 Intake Total Output Total Balance Weight Exam: GENERAL: well-nourished and in no acute distress. Patient is alert but patient noted to have altered mental status.. HEAD: Atraumatic, normocephalic. EYES: Pupils equal round and reactive to light, extraocular movements intact, sclera anicteric, conjunctiva are normal. ENT: TMs normal, nares patent, oropharynx clear without exudates. Moist mucous membranes. No oral ulcerations or bleeding gums noted NECK: supple without lymphadenopathy or JVD. Trachea is central. No cervical or axillary lymphadenopathy noted. Carotids are 2+. Previous central tracheostomy scar noted. LUNGS: Breath sounds bibasilar fine crackles at bases. No significant dullness noted. CHEST: Palpation of chest wall shows no significant chest wall tenderness. HEART: [place] LEAD ATHLETE, No PSH, 2/6 THOMAS aortic area, 1/6 [place] systolic murmur mitral area, rubs or gallops. ABDOMEN: Firm somewhat distended with hypoactive bowel sounds. No guarding, no rebound. No rigidity noted . No masses appreciated. NG tube noted on suctioning. EXTREMITIES: Pedal pulses are 1-2+, no calf tenderness noted, Trace + pedal edema noted. No clubbing or cyanosis. NEUROLOGICAL: Patient is alert but is not able to participate in neurological exam because of patient's current mental status. Patient has known quadriparesis. He is however able to move his upper extremity to some extent. PSYCH: Patient cannot participate in a neurologic and psych exam because of the patient's current mental status SKIN: No significant ecchymosis, rash, ulcerations or signs of pruritus noted. MUSCULOSKELETAL EXAM: No significant joint swelling noted. Results Laboratory Results: 11/07/17 05:25 11/07/17 05:25 11/07/17 11/07/17 11/07/17 05:25 05:25 05:25 WBC 24.2 H RBC 4.52 Hgb 12.2 L D Hct 37.3 L MCV 83 MCH 26.9 L MCHC 32.6 RDW 15.5 H Plt Count 266 Seg Neutrophils % Not Reportable Lymphocytes % Not Reportable Monocytes % Not Reportable Eosinophils % Not Reportable Basophils % Not Reportable Absolute Neutrophils Not Reportable Absolute Lymphocytes Not Reportable Absolute Monocytes Not Reportable Absolute Eosinophils Not Reportable Absolute Basophils Not Reportable Sodium 143.4 Potassium 3.1 L Chloride 108 H Carbon Dioxide 20 L Anion Gap 15 BUN 46 H Creatinine 1.00 Est GFR ( Amer) > 60 Est GFR (Non-Af Amer) > 60 Glucose 221 H Calcium 8.0 L Total Bilirubin 0.6 AST 18 ALT 29 Alkaline Phosphatase 87 Total Protein 4.6 L Albumin 2.4 L Lipase 74.2 TSH 1.23 Free T4 1.98 Free T3 pg/mL 1.84 L EKG Comments: Twelve-lead EKG shows sinus tachycardia, ST-T wave changes noted consistent with ischemia. Impressions: Chest X-Ray 11/06/17 00:00 IMPRESSION: Appropriate nasogastric tube. Head CT 11/06/17 00:00 IMPRESSION: CHRONIC CHANGES OF ATROPHY AND MICROVASCULAR ISCHEMIA. RIGHT TEMPORAL CRANIOTOMY. NO ACUTE PROCESS. EVIDENCE OF ACUTE STROKE: NO. Abdomen/Pelvis CT 11/06/17 00:59 IMPRESSION: 1. Findings compatible with likely partial small bowel obstruction with transition to decompressed loops of small bowel distally. Exact transition point is not definitely identified. 2. Redemonstrated large bowel ileus pattern. 3. Bilateral staghorn renal calculi without evidence of hydronephrosis. This exam was performed according to our departmental dose-optimization program, which includes automated exposure control, adjustment of the mA and/or kV according to patient size and/or use of iterative reconstruction technique. Assessment & Plan - Diagnosis (1) Atrial fibrillation Qualifiers: Atrial fibrillation type: paroxysmal Qualified Code(s): I48.0 - Paroxysmal atrial fibrillation Is this a current diagnosis for this admission?: Yes (2) Multifocal atrial tachycardia Is this a current diagnosis for this admission?: Yes (3) Abnormal EKG Is this a current diagnosis for this admission?: Yes (4) Type 2 diabetes mellitus Qualifiers: Diabetes mellitus fci insulin use: unspecified kindergarten assistant insulin use status Diabetes mellitus complication status: with unspecified complications Qualified Code(s): E11.8 - Type 2 diabetes mellitus with unspecified complications Is this a current diagnosis for this admission?: Yes (5) COPD (chronic obstructive pulmonary disease) Qualifiers: COPD type: unspecified COPD Qualified Code(s): J44.9 - Chronic obstructive pulmonary disease, unspecified Is this a current diagnosis for this admission?: Yes (6) Coronary artery disease Qualifiers: Coronary Disease-Associated Artery/Lesion type: [place] artery [place] vs. transplanted heart: [place] heart Associated angina: angina presence unspecified Qualified Code(s): I25.10 - Atherosclerotic heart disease of [place] coronary artery without angina pectoris Is this a current diagnosis for this admission?: Yes (7) Quadriplegia Is this a current diagnosis for this admission?: Yes (8) Small bowel obstruction Is this a current diagnosis for this admission?: Yes - Notes Notes: Atrial fibrillation: Paroxysmal. Patient has a history of atrial fibrillation. Review of current EKG strips and EKG shows that patient is actually having a atrial tachycardia with frequent ectopics. At this point recommend rate control with beta-francisco. Beta-francisco in setting of small bowel obstruction as calcium channel blockers may cause pseudoobstruction. Multifocal atrial tachycardia: Recommend maintaining electrolytes within normal limits. May consider amiodarone therapy if needed. Abnormal EKG: Most likely represent underlying CAD. Patient however not a candidate for any ischemia evaluation at this point being bedbound and with DNR status and multiple other medical problems. Diabetes: Recommend good control but avoid any hyper or hypoglycemia. Coronary artery disease: Patient without any significant angina symptoms. COPD: Patient has a history of it but currently respiration seems stable. Quadriplegia: Chronic unlikely to improve. Small bowel obstruction: Recommend conservative management unless surgery absolutely needed. Patient will be considered above average risk due to ongoing multiple serious medical problems. - Time Time Spent: 30 to 50 Minutes - CODE STATUS : was discussed, patient remains DO NOT RESUSCITATE. Surrogate decision-maker unchanged. Multiple medical problems were addressed. More than 50% of the time spent coordinating care, discussing management plans with involved caregivers. Management plans discussed with involved personnels. Medical decision making was of moderate to high complexity, patient's has multiple comorbidities. Medications reviewed and adjusted accordingly: Yes
[2017-11-07] MEDS: POTASSI CL 20 MEQ/50 ML RIDER 20 MEQ/50 ML RTUPB IV SCH ×3 (17:21→21:45)
[2017-11-07] MEDS: METOPROLOL TARTRATE PF/INJ 5 MG/5 ML SDV IV SCH (17:22)
--- NOTE | 2017-11-07 17:22 | PDOC PROGRESS REPORT ---
Subjective Progress Note for:: 11/07/17 Subjective:: Family at bedside this morning. Nursing states that pt's heart rate has been elevated. Pt states that he is not having pain. Spoke to Dr. Greenwood. Reason For Visit: SMALL BOWEL OBSTRUCTION,DILATED COLON,UTI,COPD, Physical Exam Vital Signs: Temp Pulse Resp BP Pulse Ox 97.5 F 103 H 21 H 104/83 97 11/07/17 12:00 11/07/17 07:32 11/07/17 15:14 11/07/17 15:14 11/07/17 15:14 Intake & Output 11/06/17 11/07/17 11/08/17 05:59 06:59 06:59 Intake Total Output Total Balance Weight General appearance: PRESENT: no acute distress, thin, well-developed, other - NGT in place Head exam: PRESENT: atraumatic, normocephalic Eye exam: PRESENT: conjunctiva pink, EOMI. ABSENT: scleral icterus Ear exam: PRESENT: normal external ear exam Mouth exam: PRESENT: moist, tongue midline Neck exam: ABSENT: carotid bruit, JVD, lymphadenopathy, thyromegaly Respiratory exam: PRESENT: clear to auscultation donovan. ABSENT: rales, rhonchi, wheezes Cardiovascular exam: PRESENT: tachycardia Pulses: PRESENT: normal dorsalis pedis pul Vascular exam: PRESENT: normal capillary refill GI/Abdominal exam: PRESENT: normal bowel sounds, soft. ABSENT: distended, guarding, mass, organolmegaly, rebound, tenderness Rectal exam: PRESENT: deferred Extremities exam: PRESENT: full ROM. ABSENT: calf tenderness, clubbing, pedal edema Musculoskeletal exam: PRESENT: full ROM Neurological exam: PRESENT: alert, awake, oriented to person, oriented to place , oriented to time, oriented to situation, CN II-XII grossly intact. ABSENT: motor sensory deficit Psychiatric exam: PRESENT: appropriate affect, normal mood. ABSENT: homicidal ideation, suicidal ideation Skin exam: PRESENT: dry, intact, warm. ABSENT: cyanosis, rash Results Laboratory Results: 11/07/17 05:25 11/07/17 05:25 11/07/17 11/07/17 11/07/17 05:25 05:25 05:25 WBC 24.2 H RBC 4.52 Hgb 12.2 L D Hct 37.3 L MCV 83 MCH 26.9 L MCHC 32.6 RDW 15.5 H Plt Count 266 Seg Neutrophils % Not Reportable Lymphocytes % Not Reportable Monocytes % Not Reportable Eosinophils % Not Reportable Basophils % Not Reportable Absolute Neutrophils Not Reportable Absolute Lymphocytes Not Reportable Absolute Monocytes Not Reportable Absolute Eosinophils Not Reportable Absolute Basophils Not Reportable Sodium 143.4 Potassium 3.1 L Chloride 108 H Carbon Dioxide 20 L Anion Gap 15 BUN 46 H Creatinine 1.00 Est GFR ( Amer) > 60 Est GFR (Non-Af Amer) > 60 Glucose 221 H Calcium 8.0 L Total Bilirubin 0.6 AST 18 ALT 29 Alkaline Phosphatase 87 Total Protein 4.6 L Albumin 2.4 L Lipase 74.2 TSH 1.23 Free T4 1.98 Free T3 pg/mL 1.84 L Impressions: Chest X-Ray 11/06/17 00:00 IMPRESSION: Appropriate nasogastric tube. Head CT 11/06/17 00:00 IMPRESSION: CHRONIC CHANGES OF ATROPHY AND MICROVASCULAR ISCHEMIA. RIGHT TEMPORAL CRANIOTOMY. NO ACUTE PROCESS. EVIDENCE OF ACUTE STROKE: NO. Abdomen/Pelvis CT 11/06/17 00:59 IMPRESSION: 1. Findings compatible with likely partial small bowel obstruction with transition to decompressed loops of small bowel distally. Exact transition point is not definitely identified. 2. Redemonstrated large bowel ileus pattern. 3. Bilateral staghorn renal calculi without evidence of hydronephrosis. This exam was performed according to our departmental dose-optimization program, which includes automated exposure control, adjustment of the mA and/or kV according to patient size and/or use of iterative reconstruction technique. Assessment & Plan - Diagnosis (1) Acute upper GI bleed Is this a current diagnosis for this admission?: Yes Plan: Pt on PPI drip. (2) Hypokalemia Is this a current diagnosis for this admission?: Yes Plan: Pt given potassium replacement. (3) Atrial fibrillation Qualifiers: Atrial fibrillation type: paroxysmal Qualified Code(s): I48.0 - Paroxysmal atrial fibrillation Is this a current diagnosis for this admission?: Yes Plan: Per Cardiology. Pt on Diltiazem and IV Metoprolol. (4) Leukocytosis Qualifiers: Leukocytosis type: unspecified Qualified Code(s): D72.829 - Elevated white blood cell count, unspecified Is this a current diagnosis for this admission?: Yes Plan: Will continue Meropenem 1 gram IV Q8h (5) Multifocal atrial tachycardia Is this a current diagnosis for this admission?: Yes Plan: Will continue Metoprolol tartrate 2.5mg IV Q6 hours (6) Partial small bowel obstruction Is this a current diagnosis for this admission?: Yes Plan: Pt with NG tube in place. (7) Type 2 diabetes mellitus Qualifiers: Diabetes mellitus complication status: with unspecified complications Is this a current diagnosis for this admission?: No Plan: Continue to monitor glucose. (8) GERD (gastroesophageal reflux disease) Is this a current diagnosis for this admission?: Yes Plan: PPI Drip. (9) Hydronephrosis Is this a current diagnosis for this admission?: Yes Plan: Urology is discussing placing nephrostomy tubes. - Time Time Spent with patient: 25-34 minutes
[2017-11-07] MEDS: DILTIAZEM HCL/D5W 125 MG/125 ML RTUINJ IV PRN (20:16)
--- NOTE | 2017-11-07 21:40 | EKG REPORT ---
SEVERITY:- ABNORMAL ECG - SINUS TACHYCARDIA PROBABLE INFERIOR INFARCT, AGE INDETERMINATE NONSPECIFIC ST-T ABNORMALITIES, ANT-LAT LEADS : Confirmed by: Shawna Machado 07-Nov-2017 21:39:37
[2017-11-07] MEDS: MEROPENEM 1 GM in NORMAL SALINE 50 ML IV SCH (21:42)
[2017-11-08] MEDS: METOPROLOL TARTRATE PF/INJ 5 MG/5 ML SDV IV SCH ×5 (00:05→23:33)
[2017-11-08] MEDS: INSULIN LISPRO 100 UNIT/ML 3 ML VIAL SUBCUT PRN (00:06)
[2017-11-08] MEDS: MEROPENEM 1 GM in NORMAL SALINE 50 ML IV SCH ×2 (05:25→14:24)
[2017-11-08] MEDS: NORMAL SALINE 100 ML with PANTOPRAZOLE SODIUM 80 MG IV PRN ×4 (05:25→14:26)
[2017-11-08] MEDS ORDERED: VANCOMYCIN HCL 0 MG in DEXTROSE 5%-WATER 250 ML IV NR (06:45)
[2017-11-08 07:22] LABS: HEMATOCRIT 34.2 % (37.9-51.0); HEMOGLOBIN 11.2 g/dL (13.5-17.0); MEAN CORPUSCULAR HEMOGLOBIN 26.9 pg (27.0-33.4); MEAN CORPUSCULAR HGB CONC 32.7 g/dL (32.0-36.0); MEAN CORPUSCULAR VOLUME 82 fl (80-97); PLATELET COUNT 230 10^3/uL (150-450); RED BLOOD COUNT 4.15 10^6/uL (4.35-5.55); RED CELL DISTRIBUTION WIDTH 15.8 % (11.5-14.0); WHITE BLOOD COUNT 18.6 10^3/uL (4.0-10.5)
[2017-11-08 07:23] LABS: INTERNATIONAL RATION (INR) 1.21; PROTHROMBIN TIME 16.1 SEC (11.4-15.4)
[2017-11-08 07:24] LABS: PARTIAL THROMBOPLASTIN TIME 29.2 SEC (23.5-35.8)
[2017-11-08 07:34] LABS: ALANINE AMINOTRANSFERASE 30 U/L (21-72); ALBUMIN 2.4 g/dL (3.5-5.0); ALKALINE PHOSPHATASE 82 U/L (38-126); ANION GAP 10 (5-19); ASPARTATE AMINO TRANSFERASE 19 U/L (17-59); BILIRUBIN,DIRECT 0.5 mg/dL (0.0-0.4); BILIRUBIN,TOTAL 0.5 mg/dL (0.2-1.3); BLOOD UREA NITROGEN 29 mg/dL (7-20); CALCIUM 8.2 mg/dL (8.4-10.2); CARBON DIOXIDE 23 mmol/L (22-30); CHLORIDE 118 mmol/L (98-107); GLUCOSE 176 mg/dL (75-110); POTASSIUM 3.2 mmol/L (3.6-5.0); SODIUM 150.9 mmol/L (137-145); TOTAL PROTEIN 4.9 g/dL (6.3-8.2)
[2017-11-08 07:58] LABS: ABSOLUTE LYMPHOCYTES# (MANUAL) 1.9 10^3/uL (0.5-4.7); ABSOLUTE MONOCYTES # (MANUAL) 1.1 10^3/uL (0.1-1.4); ABSOLUTE NEUTROPHILS# (MANUAL) 15.6 10^3/uL (1.7-8.2); BAND NEUTROPHILS % (MANUAL) 4 % (3-5); BASOPHILS % (MANUAL) 0 % (0-2); EOSINOPHILS % (MANUAL) 0 % (0-6); LYMPHOCYTES % (MANUAL) 10 % (13-45); MONOCYTES % (MANUAL) 6 % (3-13); SEGMENTED NEUTROPHILS % (MAN) 80 % (42-78); TOTAL CELLS COUNTED 100; TOXIC GRANULATION 2+
[2017-11-08 07:59] LABS: ANISOCYTOSIS SLIGHT; PLATELET COMMENT ADEQUATE
[2017-11-08] MEDS: VANCOMYCIN HCL 750 MG in DEXTROSE 5%-WATER 250 ML IV SCH ×2 (12:28→21:15)
[2017-11-08] MEDS: FAMOTIDINE INJ/PF 20 MG/2 ML SDV IV SCH ×2 (12:29→21:14)
[2017-11-08] MEDS ORDERED: MEROPENEM 1 GM in NORMAL SALINE 50 ML IV SCH (14:00)
--- NOTE | 2017-11-08 16:22 | PDOC PROGRESS REPORT ---
Subjective Progress Note for:: 11/08/17 Subjective:: Patient more alert no complains no BM/flatus Reason For Visit: SMALL BOWEL OBSTRUCTION,DILATED COLON,UTI,COPD, Physical Exam Vital Signs: Temp Pulse Resp BP Pulse Ox 97.8 F 119 H 22 H 138/75 H 95 11/08/17 12:00 11/08/17 12:00 11/08/17 15:00 11/08/17 14:25 11/08/17 15:00 Intake & Output 11/07/17 11/08/17 11/09/17 06:59 06:59 06:59 Intake Total 1098 Output Total 800 Balance 298 Weight 56.3 kg Exam: NGT in placed and draines about 500 ccs past 24 hrs. Abd much less distended.. no tenderness On a cardizem drip for A Fib Results Laboratory Results: 11/08/17 07:00 11/08/17 07:00 11/08/17 11/08/17 07:00 07:00 WBC 18.6 H RBC 4.15 L Hgb 11.2 L Hct 34.2 L MCV 82 MCH 26.9 L MCHC 32.7 RDW 15.8 H Plt Count 230 Seg Neutrophils % Not Reportable Lymphocytes % Not Reportable Monocytes % Not Reportable Eosinophils % Not Reportable Basophils % Not Reportable Absolute Neutrophils Not Reportable Absolute Lymphocytes Not Reportable Absolute Monocytes Not Reportable Absolute Eosinophils Not Reportable Absolute Basophils Not Reportable Sodium 150.9 H Potassium 3.2 L Chloride 118 H Carbon Dioxide 23 Anion Gap 10 BUN 29 H Creatinine 0.70 Est GFR ( Amer) > 60 Est GFR (Non-Af Amer) > 60 Glucose 176 H Calcium 8.2 L Magnesium 2.4 H Total Bilirubin 0.5 AST 19 ALT 30 Alkaline Phosphatase 82 Total Protein 4.9 L Albumin 2.4 L Impressions: Chest X-Ray 11/06/17 00:00 IMPRESSION: Appropriate nasogastric tube. Head CT 11/06/17 00:00 IMPRESSION: CHRONIC CHANGES OF ATROPHY AND MICROVASCULAR ISCHEMIA. RIGHT TEMPORAL CRANIOTOMY. NO ACUTE PROCESS. EVIDENCE OF ACUTE STROKE: NO. Abdomen/Pelvis CT 11/06/17 00:59 IMPRESSION: 1. Findings compatible with likely partial small bowel obstruction with transition to decompressed loops of small bowel distally. Exact transition point is not definitely identified. 2. Redemonstrated large bowel ileus pattern. 3. Bilateral staghorn renal calculi without evidence of hydronephrosis. This exam was performed according to our departmental dose-optimization program, which includes automated exposure control, adjustment of the mA and/or kV according to patient size and/or use of iterative reconstruction technique. Assessment & Plan - Diagnosis (1) Inguinal hernia Qualifiers: Obstruction and gangrene presence: without obstruction or gangrene Is this a current diagnosis for this admission?: Yes (2) SBO (small bowel obstruction) Is this a current diagnosis for this admission?: Yes (3) COPD (chronic obstructive pulmonary disease) Qualifiers: COPD type: unspecified COPD Qualified Code(s): J44.9 - Chronic obstructive pulmonary disease, unspecified Is this a current diagnosis for this admission?: Yes (4) Constipation Qualifiers: Constipation type: unspecified constipation type Qualified Code(s): K59.00 - Constipation, unspecified Is this a current diagnosis for this admission?: Yes (5) GERD (gastroesophageal reflux disease) Is this a current diagnosis for this admission?: Yes (6) Ileus Is this a current diagnosis for this admission?: Yes - Time Time Spent with patient: 15-24 minutes - Plan Summary Plan Summary: Spoke with son and daughter in law. They still want him on A DNR status but continue medical therapy Leave NGT for now.
--- NOTE | 2017-11-08 18:34 | PDOC PROGRESS REPORT ---
Subjective Progress Note for:: 11/08/17 Subjective:: No new issues. Spoke to Dr. Moy this morning about plan for pt. Reason For Visit: SMALL BOWEL OBSTRUCTION,DILATED COLON,UTI,COPD, Physical Exam Vital Signs: Temp Pulse Resp BP Pulse Ox 97.8 F 119 H 22 H 138/75 H 95 11/08/17 12:00 11/08/17 12:00 11/08/17 15:00 11/08/17 14:25 11/08/17 15:00 Intake & Output 11/07/17 11/08/17 11/09/17 06:59 06:59 06:59 Intake Total 1098 Output Total 800 Balance 298 Weight 56.3 kg General appearance: PRESENT: no acute distress, well-developed, well-nourished Head exam: PRESENT: atraumatic, normocephalic Eye exam: PRESENT: conjunctiva pink, EOMI Ear exam: PRESENT: normal external ear exam Mouth exam: PRESENT: moist, tongue midline, other - NGT in place with dark debrie. Neck exam: ABSENT: carotid bruit, JVD, lymphadenopathy, thyromegaly Respiratory exam: PRESENT: clear to auscultation donovan. ABSENT: rales, rhonchi, wheezes Cardiovascular exam: PRESENT: irregular rhythm, tachycardia. ABSENT: diastolic murmur, rubs, systolic murmur Pulses: PRESENT: normal dorsalis pedis pul Vascular exam: PRESENT: normal capillary refill GI/Abdominal exam: PRESENT: distended, soft Rectal exam: PRESENT: deferred Extremities exam: ABSENT: calf tenderness, clubbing, pedal edema Neurological exam: PRESENT: alert, awake, oriented to person, oriented to place , oriented to time Psychiatric exam: PRESENT: appropriate affect, normal mood. ABSENT: homicidal ideation, suicidal ideation Skin exam: PRESENT: dry, intact, warm. ABSENT: cyanosis, rash Results Laboratory Results: 11/08/17 07:00 11/08/17 07:00 11/08/17 11/08/17 07:00 07:00 WBC 18.6 H RBC 4.15 L Hgb 11.2 L Hct 34.2 L MCV 82 MCH 26.9 L MCHC 32.7 RDW 15.8 H Plt Count 230 Seg Neutrophils % Not Reportable Lymphocytes % Not Reportable Monocytes % Not Reportable Eosinophils % Not Reportable Basophils % Not Reportable Absolute Neutrophils Not Reportable Absolute Lymphocytes Not Reportable Absolute Monocytes Not Reportable Absolute Eosinophils Not Reportable Absolute Basophils Not Reportable Sodium 150.9 H Potassium 3.2 L Chloride 118 H Carbon Dioxide 23 Anion Gap 10 BUN 29 H Creatinine 0.70 Est GFR ( Amer) > 60 Est GFR (Non-Af Amer) > 60 Glucose 176 H Calcium 8.2 L Magnesium 2.4 H Total Bilirubin 0.5 AST 19 ALT 30 Alkaline Phosphatase 82 Total Protein 4.9 L Albumin 2.4 L Impressions: Chest X-Ray 11/06/17 00:00 IMPRESSION: Appropriate nasogastric tube. Head CT 11/06/17 00:00 IMPRESSION: CHRONIC CHANGES OF ATROPHY AND MICROVASCULAR ISCHEMIA. RIGHT TEMPORAL CRANIOTOMY. NO ACUTE PROCESS. EVIDENCE OF ACUTE STROKE: NO. Abdomen/Pelvis CT 11/06/17 00:59 IMPRESSION: 1. Findings compatible with likely partial small bowel obstruction with transition to decompressed loops of small bowel distally. Exact transition point is not definitely identified. 2. Redemonstrated large bowel ileus pattern. 3. Bilateral staghorn renal calculi without evidence of hydronephrosis. This exam was performed according to our departmental dose-optimization program, which includes automated exposure control, adjustment of the mA and/or kV according to patient size and/or use of iterative reconstruction technique. Assessment & Plan - Diagnosis (1) GI bleed Is this a current diagnosis for this admission?: Yes Plan: Pt on PPI drip. Manage Per Surgery. (2) Acute upper GI bleed Is this a current diagnosis for this admission?: Yes Plan: Pt on PPI drip. (3) Hypokalemia Is this a current diagnosis for this admission?: Yes Plan: Pt given potassium replacement. (4) Atrial fibrillation Qualifiers: Atrial fibrillation type: paroxysmal Qualified Code(s): I48.0 - Paroxysmal atrial fibrillation Is this a current diagnosis for this admission?: Yes Plan: Per Cardiology. Pt on Diltiazem and IV Metoprolol. (5) Leukocytosis Qualifiers: Leukocytosis type: unspecified Qualified Code(s): D72.829 - Elevated white blood cell count, unspecified Is this a current diagnosis for this admission?: Yes Plan: Secondary to Sepsis Etiology unclear: Pt with Blood cultures + for Gram Positive cocci. Pt placed on Vancomycin. (6) Multifocal atrial tachycardia Is this a current diagnosis for this admission?: Yes Plan: Will continue Metoprolol tartrate 2.5mg IV Q6 hours and Diltiazem. (7) Partial small bowel obstruction Is this a current diagnosis for this admission?: Yes Plan: Pt with NG tube in place. (8) Type 2 diabetes mellitus Qualifiers: Diabetes mellitus complication status: with unspecified complications Is this a current diagnosis for this admission?: No Plan: Continue to monitor glucose. (9) GERD (gastroesophageal reflux disease) Is this a current diagnosis for this admission?: Yes Plan: PPI Drip. (10) Hydronephrosis Is this a current diagnosis for this admission?: Yes Plan: Urology is discussing placing nephrostomy tubes. (11) Hypernatremia Is this a current diagnosis for this admission?: Yes Plan: D5 1/2 NS at 100cc/hr
[2017-11-08] MEDS: DILTIAZEM HCL/D5W 125 MG/125 ML RTUINJ IV PRN (19:04)
--- NOTE | 2017-11-08 19:26 | XCELERA REPORT ---
[address] [address] Transthoracic Echocardiogram Report Name: LAUREN NOE JR Age: 67 yrs Gender: Male : 1950 Patient Status: Inpatient Patient Location: ICU^[id number]^A Study Date: 11/08/2017 08:03 AM Height: 66 in Weight: 122 lb BSA: 1.6 m2 Procedure: A complete two-dimensional transthoracic echocardiogram was performed (2D, M-mode, spectral and color flow Doppler). The study was technically difficult with many images being suboptimal in quality. Reason For Study: a fib rvr Ordering Physician: SHAWNA WASSERMAN Performed By: Gale Ramirez Interpretation Summary The left ventricular ejection fraction is normal. There is borderline concentric left ventricular hypertrophy. Doppler measurements suggest pseudonormalized left ventricular relaxation, which is associated with grade II/IV or mild to moderate diastolic dysfunction The left ventricle is grossly normal size. Wall motion cannot be accurately commented on, but no definite regional wall motion abnormalities noted. The right ventricular systolic function is borderline reduced. The right ventricle is mildly dilated. The right atrium is mildly dilated. The left atrial size is normal. There is a trace amount of mitral regurgitation There is no mitral valve stenosis. No aortic regurgitation is present. There is no aortic valve stenosis There is a trace or physiologic amount of tricuspid regurgitation Tricuspid regurgitation jet envelope not well defined to measure RV systolic pressure accurately. The aortic root is not well visualized. The inferior vena cava was not well visualized Minimal pericardial effusion. MMode/2D Measurements & Calculations RVDd: 3.0 cm LVIDd: 4.0 cm FS: 45.7 % Ao root diam: 3.6 cm IVSd: 1.0 cm LVIDs: 2.2 cm EDV(Teich): 68.5 ml LVPWd: 0.95 cmESV(Teich): 15.3 mlAo root area: 10.0 cm2 EF(Teich): 77.6 % LVOT diam: 2.5 cm LVOT area: 4.9 cm2 Doppler Measurements & Calculations MV E max tre: MV dec slope: Ao V2 max: LV V1 max P.1 cm/sec 529.2 cm/sec2 126.5 cm/sec 3.2 mmHg MV A max tre: MV dec time: Ao max PG: LV V1 max: 127.1 cm/sec 0.13 sec 6.4 mmHg 89.3 cm/sec MV E/A: 0.53 LINH(V,D): 3.4 cm2 PA V2 max: TR max tre: 116.7 cm/sec 194.0 cm/sec PA max P.4 mmHg TR max P.1 mmHg Left Ventricle The left ventricle is grossly normal size. There is borderline concentric left ventricular hypertrophy. The left ventricular ejection fraction is normal. Doppler measurements suggest pseudonormalized left ventricular relaxation, which is associated with grade II/IV or mild to moderate diastolic dysfunction. Wall motion cannot be accurately commented on, but no definite regional wall motion abnormalities noted. Right Ventricle The right ventricle is mildly dilated. The right ventricular systolic function is borderline reduced. Atria The right atrium is mildly dilated. The left atrial size is normal. Interarterial septum not well visualized and not well dopplered. Cannot comment on ASD/PFO presence. Mitral Valve The mitral valve is not well visualized. There is no mitral valve stenosis. There is a trace amount of mitral regurgitation. Aortic Valve The aortic valve is grossly normal. There is no aortic valve stenosis. No aortic regurgitation is present. Tricuspid Valve The tricuspid valve is not well visualized secondary to technical limitations. There is no tricuspid stenosis. There is a trace or physiologic amount of tricuspid regurgitation. Tricuspid regurgitation jet envelope not well defined to measure RV systolic pressure accurately. Pulmonic Valve The pulmonic valve is not well visualized. Great Vessels The aortic root is not well visualized. The inferior vena cava was not well visualized. Effusions Minimal pericardial effusion. : SHAWNA WASSERMAN > Shawna Wasserman
--- NOTE | 2017-11-08 20:52 | PDOC PROGRESS REPORT ---
Subjective Progress Note for:: 11/08/17 Subjective:: Patient noted to be somewhat better. Heart rhythm is more stable. Abdomen is less distended. Patient's sister tells me that NG tube drainage is less. Reason For Visit: SMALL BOWEL OBSTRUCTION,DILATED COLON,UTI,COPD, Physical Exam Vital Signs: Temp Pulse Resp BP Pulse Ox 97.8 F 122 H 12 140/84 H 95 11/08/17 12:00 11/08/17 19:00 11/08/17 19:24 11/08/17 19:24 11/08/17 19:24 Intake & Output 11/07/17 11/08/17 11/09/17 06:59 06:59 06:59 Intake Total 1098 540 Output Total 800 Balance 298 540 Weight 56.3 kg Exam: GENERAL: well-nourished and in no acute distress. Patient is alert but patient noted to have altered mental status.. HEAD: Atraumatic, normocephalic. EYES: Pupils equal round and reactive to light, extraocular movements intact, sclera anicteric, conjunctiva are normal. ENT: TMs normal, nares patent, oropharynx clear without exudates. Moist mucous membranes. No oral ulcerations or bleeding gums noted NECK: supple without lymphadenopathy or JVD. Trachea is central. No cervical or axillary lymphadenopathy noted. Carotids are 2+. Previous central tracheostomy scar noted. LUNGS: Breath sounds bibasilar fine crackles at bases. No significant dullness noted. CHEST: Palpation of chest wall shows no significant chest wall tenderness. HEART: [place] [employer], No PSH, 2/6 THOMAS aortic area, 1/6 [place] systolic murmur mitral area, rubs or gallops. ABDOMEN: Firm somewhat distended with hypoactive bowel sounds. No guarding, no rebound. No rigidity noted . No masses appreciated. NG tube noted on suctioning. EXTREMITIES: Pedal pulses are 1-2+, no calf tenderness noted, Trace + pedal edema noted. No clubbing or cyanosis. NEUROLOGICAL: Patient is alert but is not able to participate in neurological exam because of patient's current mental status. Patient has known quadriparesis. He is however able to move his upper extremity to some extent. PSYCH: Patient cannot participate in a neurologic and psych exam because of the patient's current mental status SKIN: No significant ecchymosis, rash, ulcerations or signs of pruritus noted. MUSCULOSKELETAL EXAM: No significant joint swelling noted. Results Laboratory Results: 11/08/17 07:00 11/08/17 07:00 11/08/17 11/08/17 07:00 07:00 WBC 18.6 H RBC 4.15 L Hgb 11.2 L Hct 34.2 L MCV 82 MCH 26.9 L MCHC 32.7 RDW 15.8 H Plt Count 230 Seg Neutrophils % Not Reportable Lymphocytes % Not Reportable Monocytes % Not Reportable Eosinophils % Not Reportable Basophils % Not Reportable Absolute Neutrophils Not Reportable Absolute Lymphocytes Not Reportable Absolute Monocytes Not Reportable Absolute Eosinophils Not Reportable Absolute Basophils Not Reportable Sodium 150.9 H Potassium 3.2 L Chloride 118 H Carbon Dioxide 23 Anion Gap 10 BUN 29 H Creatinine 0.70 Est GFR ( Amer) > 60 Est GFR (Non-Af Amer) > 60 Glucose 176 H Calcium 8.2 L Magnesium 2.4 H Total Bilirubin 0.5 AST 19 ALT 30 Alkaline Phosphatase 82 Total Protein 4.9 L Albumin 2.4 L EKG Comments: Telemetry strips shows sinus rhythm with mild intermittent sinus tachycardia Impressions: Chest X-Ray 11/06/17 00:00 IMPRESSION: Appropriate nasogastric tube. Head CT 11/06/17 00:00 IMPRESSION: CHRONIC CHANGES OF ATROPHY AND MICROVASCULAR ISCHEMIA. RIGHT TEMPORAL CRANIOTOMY. NO ACUTE PROCESS. EVIDENCE OF ACUTE STROKE: NO. Abdomen/Pelvis CT 11/06/17 00:59 IMPRESSION: 1. Findings compatible with likely partial small bowel obstruction with transition to decompressed loops of small bowel distally. Exact transition point is not definitely identified. 2. Redemonstrated large bowel ileus pattern. 3. Bilateral staghorn renal calculi without evidence of hydronephrosis. This exam was performed according to our departmental dose-optimization program, which includes automated exposure control, adjustment of the mA and/or kV according to patient size and/or use of iterative reconstruction technique. 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 transplanted heart: [place] heart Associated angina: angina presence unspecified Qualified Code(s): I25.10 - Atherosclerotic heart disease of [place] coronary artery without angina pectoris Is this a current diagnosis for this admission?: Yes (7) Quadriplegia Is this a current diagnosis for this admission?: Yes (8) Small bowel obstruction Is this a current diagnosis for this admission?: Yes - Notes Notes: Patient was placed on IV Lopressor 2.5 mg every 6 hours. This seems to have helped. There has been no increase in wheezing. Small bowel obstruction seems to be improving. - Time Time with patient: 15-25 minutes - CODE STATUS : was discussed, patient remains DO NOT RESUSCITATE. Surrogate decision-maker unchanged. Multiple medical problems were addressed. More than 50% of the time spent coordinating care, discussing management plans with involved caregivers. Management plans discussed with involved personnels. Medical decision making was of moderate to high complexity, patient's has multiple comorbidities. Medications reviewed and adjusted accordingly: Yes
[2017-11-08] MEDS ORDERED: ACETAMINOPHEN 325 MG TABLET PO PRN (20:56)
[2017-11-08] MEDS: MEROPENEM 1 GM in NORMAL SALINE 100 ML IV SCH (21:14)
[2017-11-08] MEDS: DEXTROSE 5%-1/2 NORMAL SALINE 1,000 ML IV PRN (23:34)
[2017-11-09] MEDS: INSULIN LISPRO 100 UNIT/ML 3 ML VIAL SUBCUT PRN ×2 (00:04→06:46)
[2017-11-09] MEDS: NORMAL SALINE 100 ML with PANTOPRAZOLE SODIUM 80 MG IV PRN ×2 (01:01)
[2017-11-09] MEDS: METOPROLOL TARTRATE PF/INJ 5 MG/5 ML SDV IV SCH ×4 (05:33→23:32)
[2017-11-09] MEDS: MEROPENEM 1 GM in NORMAL SALINE 100 ML IV SCH ×3 (05:33→22:21)
[2017-11-09 07:27] LABS: HEMATOCRIT 33.5 % (37.9-51.0); HEMOGLOBIN 10.7 g/dL (13.5-17.0); MEAN CORPUSCULAR HEMOGLOBIN 26.5 pg (27.0-33.4); MEAN CORPUSCULAR HGB CONC 31.9 g/dL (32.0-36.0); MEAN CORPUSCULAR VOLUME 83 fl (80-97); PLATELET COUNT 211 10^3/uL (150-450); RED BLOOD COUNT 4.04 10^6/uL (4.35-5.55); RED CELL DISTRIBUTION WIDTH 16.4 % (11.5-14.0)
[2017-11-09 07:35] LABS: ALANINE AMINOTRANSFERASE 29 U/L (21-72); ALBUMIN 2.4 g/dL (3.5-5.0); ALKALINE PHOSPHATASE 77 U/L (38-126); ANION GAP 8 (5-19); ASPARTATE AMINO TRANSFERASE 15 U/L (17-59); BILIRUBIN,DIRECT 0.1 mg/dL (0.0-0.4); BILIRUBIN,TOTAL 0.3 mg/dL (0.2-1.3); BLOOD UREA NITROGEN 16 mg/dL (7-20); CALCIUM 7.9 mg/dL (8.4-10.2); CARBON DIOXIDE 26 mmol/L (22-30); CHLORIDE 114 mmol/L (98-107); GLUCOSE 206 mg/dL (75-110); SODIUM 147.8 mmol/L (137-145); TOTAL PROTEIN 4.8 g/dL (6.3-8.2)
[2017-11-09 07:48] LABS: POTASSIUM 2.6 mmol/L (3.6-5.0)
[2017-11-09 08:10] LABS: ABSOLUTE LYMPHOCYTES# (MANUAL) 1.7 10^3/uL (0.5-4.7); ABSOLUTE MONOCYTES # (MANUAL) 0.8 10^3/uL (0.1-1.4); ABSOLUTE NEUTROPHILS# (MANUAL) 10.3 10^3/uL (1.7-8.2); BAND NEUTROPHILS % (MANUAL) 5 % (3-5); BASOPHILS % (MANUAL) 0 % (0-2); EOSINOPHILS % (MANUAL) 2 % (0-6); LYMPHOCYTES % (MANUAL) 12 % (13-45); MONOCYTES % (MANUAL) 6 % (3-13); SEGMENTED NEUTROPHILS % (MAN) 74 % (42-78); TOTAL CELLS COUNTED 100
[2017-11-09 08:11] LABS: ANISOCYTOSIS 1+; PLATELET COMMENT ADEQUATE; TOXIC GRANULATION 1+
--- NOTE | 2017-11-09 08:24 | PDOC PROGRESS REPORT ---
Subjective Progress Note for:: 11/09/17 Subjective:: Nursing states that pt is doing better this morning. Pt states that he is have abd pain. Pt states that overall he is doing better. Reason For Visit: SMALL BOWEL OBSTRUCTION,DILATED COLON,UTI,COPD, Physical Exam Vital Signs: Temp Pulse Resp BP Pulse Ox 98 F 122 H 19 131/73 H 96 11/09/17 04:00 11/08/17 19:00 11/09/17 06:25 11/09/17 06:25 11/09/17 06:25 Intake & Output 11/08/17 11/09/17 11/10/17 06:59 06:59 06:59 Intake Total 1098 2587 Output Total 800 300 Balance 298 2287 Weight 56.3 kg 56.9 kg General appearance: PRESENT: no acute distress, thin, well-developed Head exam: PRESENT: atraumatic, normocephalic Eye exam: PRESENT: conjunctiva pink, EOMI. ABSENT: scleral icterus Ear exam: PRESENT: normal external ear exam Mouth exam: PRESENT: moist, tongue midline Neck exam: ABSENT: carotid bruit, JVD, lymphadenopathy, thyromegaly Respiratory exam: PRESENT: clear to auscultation donovan. ABSENT: rales, rhonchi, wheezes Cardiovascular exam: PRESENT: RRR. ABSENT: diastolic murmur, rubs, systolic murmur Pulses: PRESENT: normal dorsalis pedis pul Vascular exam: PRESENT: normal capillary refill GI/Abdominal exam: PRESENT: distended - improved, NGT in place, + bowel sounds Rectal exam: PRESENT: deferred Extremities exam: ABSENT: calf tenderness, clubbing, pedal edema Neurological exam: PRESENT: alert, awake, oriented to person, oriented to place , oriented to time Skin exam: PRESENT: dry, intact, warm. ABSENT: cyanosis, rash Results Laboratory Results: 11/09/17 06:57 11/09/17 11/09/17 06:57 06:57 Seg Neutrophils % Not Reportable Lymphocytes % Not Reportable Monocytes % Not Reportable Eosinophils % Not Reportable Basophils % Not Reportable Absolute Neutrophils Not Reportable Absolute Lymphocytes Not Reportable Absolute Monocytes Not Reportable Absolute Eosinophils Not Reportable Absolute Basophils Not Reportable Sodium 147.8 H Potassium 2.6 L* Chloride 114 H Carbon Dioxide 26 Anion Gap 8 BUN 16 Creatinine 0.67 Est GFR ( Amer) > 60 Est GFR (Non-Af Amer) > 60 Glucose 206 H Calcium 7.9 L Total Bilirubin 0.3 AST 15 L ALT 29 Alkaline Phosphatase 77 Total Protein 4.8 L Albumin 2.4 L Impressions: Chest X-Ray 11/06/17 00:00 IMPRESSION: Appropriate nasogastric tube. Head CT 11/06/17 00:00 IMPRESSION: CHRONIC CHANGES OF ATROPHY AND MICROVASCULAR ISCHEMIA. RIGHT TEMPORAL CRANIOTOMY. NO ACUTE PROCESS. EVIDENCE OF ACUTE STROKE: NO. Abdomen/Pelvis CT 11/06/17 00:59 IMPRESSION: 1. Findings compatible with likely partial small bowel obstruction with transition to decompressed loops of small bowel distally. Exact transition point is not definitely identified. 2. Redemonstrated large bowel ileus pattern. 3. Bilateral staghorn renal calculi without evidence of hydronephrosis. This exam was performed according to our departmental dose-optimization program, which includes automated exposure control, adjustment of the mA and/or kV according to patient size and/or use of iterative reconstruction technique. Assessment & Plan - Diagnosis (1) Sepsis Is this a current diagnosis for this admission?: Yes Plan: Secondary to staph epi present at time of admission: We will continue antibiotics. Patient's repeat blood cultures have demonstrated no growth in 24 hours. Patient has demonstrated significant improvement will continue with current treatment. (2) GI bleed Is this a current diagnosis for this admission?: Yes Plan: Pt on PPI drip. Manage Per Surgery. Patient still with NG tube in place. Nurse reported the patient has not had much out of NG tube. Recommend recommendations from surgery (3) Acute upper GI bleed Is this a current diagnosis for this admission?: Yes Plan: Pt on PPI drip. Place consult for GI to evaluate patient. Dr. Malin will be available tomorrow. (4) Hypokalemia Is this a current diagnosis for this admission?: Yes Plan: Will give Potassium replacement. Will check BMP at 1500. Will check BMP in am. Magnesium level 2.4. (5) Atrial fibrillation Qualifiers: Atrial fibrillation type: paroxysmal Qualified Code(s): I48.0 - Paroxysmal atrial fibrillation Is this a current diagnosis for this admission?: Yes Plan: Per Cardiology. Pt on Diltiazem and IV Metoprolol. (6) Leukocytosis Qualifiers: Leukocytosis type: unspecified Qualified Code(s): D72.829 - Elevated white blood cell count, unspecified Is this a current diagnosis for this admission?: Yes Plan: Secondary to Sepsis Etiology unclear: Pt with Blood cultures + for Gram Positive cocci. Pt placed on Vancomycin. CBC pending this morning. (7) Multifocal atrial tachycardia Is this a current diagnosis for this admission?: Yes Plan: Will continue Metoprolol tartrate 2.5mg IV Q6 hours and Diltiazem. (8) Partial small bowel obstruction Is this a current diagnosis for this admission?: Yes Plan: Pt with NG tube in place. Nursing states the patient has not had much out of NG tube. Awaiting recommendations from surgery to determine if surgery will start feeds today. (9) Type 2 diabetes mellitus Qualifiers: Diabetes mellitus complication status: with unspecified complications Is this a current diagnosis for this admission?: No Plan: Continue to monitor glucose. Pt has SSI in place (10) GERD (gastroesophageal reflux disease) Is this a current diagnosis for this admission?: Yes Plan: PPI Drip. (11) Hydronephrosis Is this a current diagnosis for this admission?: Yes Plan: Urology is discussing placing nephrostomy tubes. (12) Hypernatremia Is this a current diagnosis for this admission?: Yes Plan: Patient's sodium is trending down. Patient's last sodium was 147. Will continue D5 half-normal saline at 100 cc/h (13) Acute metabolic encephalopathy Is this a current diagnosis for this admission?: Yes Plan: Secondary sepsis due to Staph epi: We will continue patient on vancomycin. Patient had 2D echo ordered demonstrated normal EF with no evidence of vegetations. Due to patient's comorbidities and the report that staff appendectomy demonstrates resistance to antibiotics recommend patient completing 14 days of IV antibiotic treatment. Will see if staph epi is sensitive to Ancef. (14) DVT prophylaxis Is this a current diagnosis for this admission?: Yes Plan: SCDs - Time Time Spent with patient: 25-34 minutes
[2017-11-09] MEDS: DILTIAZEM HCL/D5W 125 MG/125 ML RTUINJ IV PRN (09:59)
[2017-11-09] MEDS: POTASSI CL 20 MEQ/50 ML RIDER 20 MEQ/50 ML RTUPB IV SCH ×4 (09:59→16:54)
[2017-11-09] MEDS: VANCOMYCIN HCL 750 MG in DEXTROSE 5%-WATER 250 ML IV SCH ×2 (10:00→22:19)
[2017-11-09] MEDS: FAMOTIDINE INJ/PF 20 MG/2 ML SDV IV SCH ×2 (10:01→22:05)
--- NOTE | 2017-11-09 10:05 | PDOC CONSULTATION ---
Consultation Consult Date: 11/09/17 Attending physician:: ALVINA QUIROZ Consult reason:: chronic anemia, ileus, decrease H/H , possible coffee grounds. Jessica's History of Present Illness Admission Date/PCP: 11/06/17 03:05 History of Present Illness: Patient initially admitted under the Surgicalist service multiple prolonged admission patient had Jessica's, had imaging of the colon, no colon obstruction current studies indicate possible small bowel ileus not a surgical candidate patient was not scoped while on the Surgery service had NGT placed now ? possible coffee ground emesis patient is currently DNR I have spoken with Dr Moy Past Medical History Cardiac Medical History: Reports: Atrial Fibrillation, Congestive Heart Failure , Hypertension, Other Pulmonary Medical History: Reports: Chronic Obstructive Pulmonary Disease (COPD) , Pneumonia Denies: Tuberculosis EENT Medical History: Reports: None Neurological Medical History: Reports: Seizures Renal/ Medical History: Reports: Nephrolithiasis, Other - bladder and urethral calculi GI Medical History: Reports: Gastroesophageal Reflux Disease Musculoskeltal Medical History: Reports: Other - C4 injury Psychiatric Medical History: Denies: Depression Past Surgical History Past Surgical History: Reports: Other - tracheostomy Social History Lives with: Intermediate Smoking Status: Former Smoker Frequency of Alcohol Use: None Hx Recreational Drug Use: No Drugs: None Hx Prescription Drug Abuse: No - Advance Directive Resuscitation Status: Do Not Resuscitate Family History Family History: Reviewed & Not Pertinent Parental Family History Reviewed: Yes Children Family History Reviewed: Unknown Sibling(s) Family History Reviewed.: Unknown Medication/Allergy Home Medications: Aspirin [Ecotrin 81 mg EC Tablet] 81 mg PO DAILY 11/06/17 Digoxin [Lanoxin 0.125 mg Tablet] 0.125 mg PO DAILY 11/06/17 Diltiazem HCl [Cardizem Cd 120 mg Capsule] 120 mg PO DAILY 11/06/17 Famotidine [Pepcid 20 mg Tablet] 20 mg PO BID 11/06/17 Fluticasone Propionate [Flonase Nasal [place] 50 Mcg/[place] 16 gm] 1 spray NASL DAILY 11/06/17 Ipratropium/Albuterol Sulfate [Iprat-Albut 0.5-3(2.5) mg/3 ml] 3 ml NEB Q8 11/06 Lactobacillus Acidophilus [Acidophilus Lactobacilli] 500 mg PO BID 03/10/18 Lactulose [Enulose 10 gm/15 mL Oral Solution] 30 mg PO QHS 11/06/17 Metoprolol Tartrate [Lopressor 100 mg Tablet] 100 mg PO Q12 11/06/17 Multivitamin [Tab-A-Thiago (Multiple Vitamin) Tablet] 1 tab PO DAILY 11/06/17 Ondansetron HCl [Zofran 4 mg Tablet] 4 mg PO Q6HP PRN 11/06/17 Polyethylene Glycol 3350 [Miralax Powder 17 gm/Packet] 17 gm PO DAILY 11/06/17 Allergies/Adverse Reactions: celecoxib [From Celebrex] Allergy (Verified 11/06/17 08:51) Penicillins Allergy (Verified 11/06/17 08:51) Sulfa (Sulfonamide Antibiotics) Allergy (Verified 11/06/17 08:55) sulfamethoxazole [From Bactrim] Allergy (Verified 11/06/17 08:51) trimethoprim [From Bactrim] Allergy (Verified 11/06/17 08:51) Review of Systems Constitutional: ABSENT: night sweats Eyes: ABSENT: visual disturbances Nose, Mouth, and Throat: ABSENT: mouth pain Cardiovascular: ABSENT: chest pain, orthropnea Respiratory: ABSENT: hemoptysis Gastrointestinal: ABSENT: dysphagia, hematochezia, nausea, vomiting Genitourinary: ABSENT: dysuria Musculoskeletal: ABSENT: joint swelling Integumentary: ABSENT: rash Neurological: ABSENT: syncope, tingling, tremor(s), vertigo Endocrine: ABSENT: polydipsia, polyphagia, polyuria Hematologic/Lymphatic: ABSENT: easy bruising Physical Exam Vital Signs: Temp Pulse Resp BP Pulse Ox 97.7 F 94 13 137/77 H 97 11/09/17 08:36 11/09/17 08:36 11/09/17 08:36 11/09/17 08:36 11/09/17 08:36 Intake & Output 11/08/17 11/09/17 11/10/17 06:59 06:59 06:59 Intake Total 1098 2587 Output Total 800 300 Balance 298 2287 Weight 56.3 kg 56.9 kg General appearance: PRESENT: mild distress Head exam: PRESENT: atraumatic, normocephalic Eye exam: PRESENT: EOMI, PERRLA. ABSENT: nystagmus, periorbital swelling, scleral icterus Mouth exam: PRESENT: moist Throat exam: ABSENT: tonsillogmegaly Neck exam: ABSENT: meningismus, tenderness, thyromegaly Respiratory exam: PRESENT: symmetrical. ABSENT: tachypnea, wheezes Cardiovascular exam: PRESENT: irregular rhythm. ABSENT: clicks GI/Abdominal exam: PRESENT: distended, soft. ABSENT: rebound, rigid Extremities exam: ABSENT: joint swelling Neurological exam: PRESENT: altered, CN II-XII grossly intact Skin exam: ABSENT: mottled, pallor, petechiae, urticaria, vesicles Results Laboratory Results: 11/09/17 06:57 11/09/17 06:57 11/09/17 11/09/17 06:57 06:57 WBC 13.0 H RBC 4.04 L Hgb 10.7 L Hct 33.5 L MCV 83 MCH 26.5 L MCHC 31.9 L RDW 16.4 H Plt Count 211 Seg Neutrophils % Not Reportable Lymphocytes % Not Reportable Monocytes % Not Reportable Eosinophils % Not Reportable Basophils % Not Reportable Absolute Neutrophils Not Reportable Absolute Lymphocytes Not Reportable Absolute Monocytes Not Reportable Absolute Eosinophils Not Reportable Absolute Basophils Not Reportable Sodium 147.8 H Potassium 2.6 L* Chloride 114 H Carbon Dioxide 26 Anion Gap 8 BUN 16 Creatinine 0.67 Est GFR ( Amer) > 60 Est GFR (Non-Af Amer) > 60 Glucose 206 H Calcium 7.9 L Total Bilirubin 0.3 AST 15 L ALT 29 Alkaline Phosphatase 77 Total Protein 4.8 L Albumin 2.4 L 11/06/17 14:48 Blood Blood Culture - Final Staphylococcus Epidermidis 11/06/17 12:22 Blood Blood Culture - Final Staphylococcus Epidermidis Impressions: Chest X-Ray 11/06/17 00:00 IMPRESSION: Appropriate nasogastric tube. Head CT 11/06/17 00:00 IMPRESSION: CHRONIC CHANGES OF ATROPHY AND MICROVASCULAR ISCHEMIA. RIGHT TEMPORAL CRANIOTOMY. NO ACUTE PROCESS. EVIDENCE OF ACUTE STROKE: NO. Abdomen/Pelvis CT 11/06/17 00:59 IMPRESSION: 1. Findings compatible with likely partial small bowel obstruction with transition to decompressed loops of small bowel distally. Exact transition point is not definitely identified. 2. Redemonstrated large bowel ileus pattern. 3. Bilateral staghorn renal calculi without evidence of hydronephrosis. This exam was performed according to our departmental dose-optimization program, which includes automated exposure control, adjustment of the mA and/or kV according to patient size and/or use of iterative reconstruction technique. Assessment & Plan - Diagnosis (1) Acute upper GI bleed Is this a current diagnosis for this admission?: Yes Plan: coffee ground emesis could be due to NGT trauma patient has CT scan showing small bowel obstruction ? transition point possibly large bowel ileus as well suggestive of [place]'s with respect to possible ? upper GI bleeding, labs have been trending down had coffee grounds, possible NGT trauma patient is DNR will speak to patient's family about reversal to get EGD done Risks, benefits and alternatives are explained to the family in detail further recommendations to follow will schedule for tomorrow likely to be out of ICU continue PPI for now - Time Time Spent: 50 to 70 Minutes
[2017-11-09] MEDS: DEXTROSE 5%-1/2 NORMAL SALINE 1,000 ML IV PRN (12:20)
[2017-11-09 15:43] LABS: BLOOD UREA NITROGEN 13 mg/dL (7-20); CALCIUM 7.5 mg/dL (8.4-10.2); CARBON DIOXIDE 28 mmol/L (22-30); GLUCOSE 196 mg/dL (75-110)
[2017-11-09 15:48] LABS: ANION GAP 5 (5-19); CHLORIDE 114 mmol/L (98-107); SODIUM 147.2 mmol/L (137-145)
--- NOTE | 2017-11-09 18:44 | PDOC PROGRESS REPORT ---
Subjective Progress Note for:: 11/09/17 Subjective:: Patient noted to be somewhat better. Patient noted to be gradually improving in general condition. Heart rhythm is more stable. Currently on IV Lopressor at 2.5 mg p.o. every 6 [id number] which she seems to be tolerating well. Patient also on a small amount of diltiazem drip. Reason For Visit: SMALL BOWEL OBSTRUCTION,DILATED COLON,UTI,COPD, Physical Exam Vital Signs: Temp Pulse Resp BP Pulse Ox 97.7 F 92 9 L 133/77 H 96 11/09/17 08:36 11/09/17 10:00 11/09/17 11:26 11/09/17 11:26 11/09/17 11:26 Intake & Output 11/08/17 11/09/17 11/10/17 06:59 06:59 06:59 Intake Total 1098 2587 Output Total 800 300 Balance 298 2287 Weight 56.3 kg 56.9 kg Exam: GENERAL: well-nourished and in no acute distress. HEAD: Atraumatic, normocephalic. EYES: Pupils equal round and reactive to light, extraocular movements intact, sclera anicteric, conjunctiva are normal. ENT: TMs normal, nares patent, oropharynx clear without exudates. Moist mucous membranes. No oral ulcerations or bleeding gums noted NECK: supple without lymphadenopathy or JVD. Trachea is central. No cervical or axillary lymphadenopathy noted. Carotids are 2+. Previous central tracheostomy scar noted. LUNGS: Breath sounds bibasilar fine crackles at bases. No significant dullness noted. CHEST: Palpation of chest wall shows no significant chest wall tenderness. HEART: [employer]ark[employer], No PSH, 2/6 THOMAS aortic area, 1/6 munguia systolic murmur mitral area, rubs or gallops. ABDOMEN: Firm somewhat distended with hypoactive bowel sounds. No guarding, no rebound. No rigidity noted . No masses appreciated. NG tube noted on suctioning. EXTREMITIES: Pedal pulses are 1-2+, no calf tenderness noted, Trace + pedal edema noted. No clubbing or cyanosis. NEUROLOGICAL: No new changes noted. Patient has known quadriparesis. He is however able to move his upper extremity to some extent. PSYCH: No behavioral abnormalities noted. SKIN: No significant ecchymosis, rash, ulcerations or signs of pruritus noted. MUSCULOSKELETAL EXAM: No significant joint swelling noted. Results Laboratory Results: 11/09/17 06:57 11/09/17 06:57 11/09/17 11/09/17 06:57 06:57 WBC 13.0 H RBC 4.04 L Hgb 10.7 L Hct 33.5 L MCV 83 MCH 26.5 L MCHC 31.9 L RDW 16.4 H Plt Count 211 Seg Neutrophils % Not Reportable Lymphocytes % Not Reportable Monocytes % Not Reportable Eosinophils % Not Reportable Basophils % Not Reportable Absolute Neutrophils Not Reportable Absolute Lymphocytes Not Reportable Absolute Monocytes Not Reportable Absolute Eosinophils Not Reportable Absolute Basophils Not Reportable Sodium 147.8 H Potassium 2.6 L* Chloride 114 H Carbon Dioxide 26 Anion Gap 8 BUN 16 Creatinine 0.67 Est GFR ( Amer) > 60 Est GFR (Non-Af Amer) > 60 Glucose 206 H Calcium 7.9 L Total Bilirubin 0.3 AST 15 L ALT 29 Alkaline Phosphatase 77 Total Protein 4.8 L Albumin 2.4 L 11/06/17 14:48 Blood Blood Culture - Final Staphylococcus Epidermidis 11/06/17 12:22 Blood Blood Culture - Final Staphylococcus Epidermidis EKG Comments: Telemetry shows sinus rhythm with short run of paroxysmal atrial tachycardia. However heart rate is well controlled during these spells. Impressions: Chest X-Ray 11/06/17 00:00 IMPRESSION: Appropriate nasogastric tube. Head CT 11/06/17 00:00 IMPRESSION: CHRONIC CHANGES OF ATROPHY AND MICROVASCULAR ISCHEMIA. RIGHT TEMPORAL CRANIOTOMY. NO ACUTE PROCESS. EVIDENCE OF ACUTE STROKE: NO. Abdomen/Pelvis CT 11/06/17 00:59 IMPRESSION: 1. Findings compatible with likely partial small bowel obstruction with transition to decompressed loops of small bowel distally. Exact transition point is not definitely identified. 2. Redemonstrated large bowel ileus pattern. 3. Bilateral staghorn renal calculi without evidence of hydronephrosis. This exam was performed according to our departmental dose-optimization program, which includes automated exposure control, adjustment of the mA and/or kV according to patient size and/or use of iterative reconstruction technique. Assessment & Plan - Diagnosis (1) Atrial fibrillation Qualifiers: Atrial fibrillation type: paroxysmal Qualified Code(s): I48.0 - Paroxysmal atrial fibrillation Is this a current diagnosis for this admission?: Yes (2) Multifocal atrial tachycardia Is this a current diagnosis for this admission?: Yes (3) Abnormal EKG Is this a current diagnosis for this admission?: Yes (4) Type 2 diabetes mellitus Qualifiers: Diabetes mellitus correction insulin use: unspecified termite inspector insulin use status Diabetes mellitus complication status: with unspecified complications Qualified Code(s): E11.8 - Type 2 diabetes mellitus with unspecified complications Is this a current diagnosis for this admission?: Yes (5) COPD (chronic obstructive pulmonary disease) Qualifiers: COPD type: unspecified COPD Qualified Code(s): J44.9 - Chronic obstructive pulmonary disease, unspecified Is this a current diagnosis for this admission?: Yes (6) Coronary artery disease Qualifiers: Coronary Disease-Associated Artery/Lesion type: [place] artery [place] vs. transplanted heart: [place] heart Associated angina: angina presence unspecified Qualified Code(s): I25.10 - Atherosclerotic heart disease of [place] coronary artery without angina pectoris Is this a current diagnosis for this admission?: Yes (7) Quadriplegia Is this a current diagnosis for this admission?: Yes (8) Small bowel obstruction Is this a current diagnosis for this admission?: Yes - Notes Notes: Atrial fibrillation: Paroxysmal. Patient has a history of atrial fibrillation. Review of current EKG strips and EKG shows that patient is actually having a atrial tachycardia with frequent ectopics. At this point recommend rate control with beta-francisco. Beta-francisco in setting of small bowel obstruction as calcium channel blockers may cause pseudoobstruction. Currently tolerating Lopressor 2.5 mg p.o. every 6 hours. Recent also on small dose of Cardizem drip at 5 mg an hour. Multifocal atrial tachycardia: Recommend maintaining electrolytes within normal limits. May consider amiodarone therapy if needed. Abnormal EKG: Most likely represent underlying CAD. Patient however not a candidate for any ischemia evaluation at this point being bedbound and with DNR status and multiple other medical problems. Diabetes: Recommend good control but avoid any hyper or hypoglycemia. Coronary artery disease: Patient without any significant angina symptoms. COPD: Patient has a history of it but currently respiration seems stable. Quadriplegia: Chronic unlikely to improve. Small bowel obstruction: Recommend conservative management unless surgery absolutely needed. Patient will be considered above average risk due to ongoing multiple serious medical problems. Patient seems to be improving with conservative management. - Time Time with patient: 15-25 minutes - CODE STATUS : was discussed, patient remains DO NOT RESUSCITATE. Surrogate decision-maker unchanged. Multiple medical problems were addressed. More than 50% of the time spent coordinating care, discussing management plans with involved caregivers. Management plans discussed with involved personnels. Medical decision making was of moderate to high complexity, patient's has multiple comorbidities. Medications reviewed and adjusted accordingly: Yes
--- NOTE | 2017-11-09 19:10 | PDOC PROGRESS REPORT ---
Subjective Progress Note for:: 11/09/17 Subjective:: less abdominal pains Reason For Visit: SMALL BOWEL OBSTRUCTION,DILATED COLON,UTI,COPD, Physical Exam Vital Signs: Temp Pulse Resp BP Pulse Ox 97.7 F 90 20 148/62 H 95 11/09/17 12:00 11/09/17 16:00 11/09/17 18:00 11/09/17 17:26 11/09/17 18:00 Intake & Output 11/08/17 11/09/17 11/10/17 06:59 06:59 06:59 Intake Total 1098 2587 1610 Output Total 800 300 Balance 298 2287 1610 Weight 56.3 kg 56.9 kg Exam: NGT less drainage greenish Abdomen less distended with mild diffuse tenderness Results Laboratory Results: 11/09/17 06:57 11/09/17 15:20 11/09/17 11/09/17 11/09/17 06:57 06:57 15:20 WBC 13.0 H RBC 4.04 L Hgb 10.7 L Hct 33.5 L MCV 83 MCH 26.5 L MCHC 31.9 L RDW 16.4 H Plt Count 211 Seg Neutrophils % Not Reportable Lymphocytes % Not Reportable Monocytes % Not Reportable Eosinophils % Not Reportable Basophils % Not Reportable Absolute Neutrophils Not Reportable Absolute Lymphocytes Not Reportable Absolute Monocytes Not Reportable Absolute Eosinophils Not Reportable Absolute Basophils Not Reportable Sodium 147.8 H 147.2 H Potassium 2.6 L* 3.0 L* Chloride 114 H 114 H Carbon Dioxide 26 28 Anion Gap 8 5 BUN 16 13 Creatinine 0.67 0.58 Est GFR ( Amer) > 60 > 60 Est GFR (Non-Af Amer) > 60 > 60 Glucose 206 H 196 H Calcium 7.9 L 7.5 L Total Bilirubin 0.3 AST 15 L ALT 29 Alkaline Phosphatase 77 Total Protein 4.8 L Albumin 2.4 L 11/06/17 14:48 Blood Blood Culture - Final Staphylococcus Epidermidis 11/06/17 12:22 Blood Blood Culture - Final Staphylococcus Epidermidis Impressions: Chest X-Ray 11/06/17 00:00 IMPRESSION: Appropriate nasogastric tube. Head CT 11/06/17 00:00 IMPRESSION: CHRONIC CHANGES OF ATROPHY AND MICROVASCULAR ISCHEMIA. RIGHT TEMPORAL CRANIOTOMY. NO ACUTE PROCESS. EVIDENCE OF ACUTE STROKE: NO. Abdomen/Pelvis CT 11/06/17 00:59 IMPRESSION: 1. Findings compatible with likely partial small bowel obstruction with transition to decompressed loops of small bowel distally. Exact transition point is not definitely identified. 2. Redemonstrated large bowel ileus pattern. 3. Bilateral staghorn renal calculi without evidence of hydronephrosis. This exam was performed according to our departmental dose-optimization program, which includes automated exposure control, adjustment of the mA and/or kV according to patient size and/or use of iterative reconstruction technique. Assessment & Plan - Diagnosis (1) Inguinal hernia Qualifiers: Obstruction and gangrene presence: without obstruction or gangrene Is this a current diagnosis for this admission?: Yes (2) SBO (small bowel obstruction) Is this a current diagnosis for this admission?: Yes (3) COPD (chronic obstructive pulmonary disease) Qualifiers: COPD type: unspecified COPD Qualified Code(s): J44.9 - Chronic obstructive pulmonary disease, unspecified Is this a current diagnosis for this admission?: Yes (4) Constipation Qualifiers: Constipation type: unspecified constipation type Qualified Code(s): K59.00 - Constipation, unspecified Is this a current diagnosis for this admission?: Yes (5) GERD (gastroesophageal reflux disease) Is this a current diagnosis for this admission?: Yes (6) Ileus Is this a current diagnosis for this admission?: Yes - Time Time Spent with patient: 15-24 minutes - Plan Summary Plan Summary: For EGD tomorrow by Dr Malin and possible D/C NGT Continue IV antibiotics for UTI
[2017-11-09 23:13] LABS: VANCOMYCIN,TROUGH 10.4 ug/mL (5.0-20.0)
[2017-11-10] MEDS: DEXTROSE 5%-1/2 NORMAL SALINE 1,000 ML IV PRN (01:53)
[2017-11-10] MEDS: MEROPENEM 1 GM in NORMAL SALINE 100 ML IV SCH ×3 (05:07→21:08)
[2017-11-10] MEDS: METOPROLOL TARTRATE PF/INJ 5 MG/5 ML SDV IV SCH ×4 (05:08→23:07)
[2017-11-10 05:39] LABS: ABSOLUTE EOSINOPHILS # (AUTO) 0.4 10^3/uL (0.0-0.6); ABSOLUTE MONOCYTES (AUTO) 0.8 10^3/uL (0.1-1.4); BASOPHILS % (AUTO) 0.3 % (0-2); EOSINOPHILS % (AUTO) 3.5 % (0-6); HEMATOCRIT 32.5 % (37.9-51.0); HEMOGLOBIN 10.6 g/dL (13.5-17.0); LYMPHOCYTES % (AUTO) 16.4 % (13-45); MEAN CORPUSCULAR HEMOGLOBIN 26.8 pg (27.0-33.4); MEAN CORPUSCULAR HGB CONC 32.5 g/dL (32.0-36.0); MEAN CORPUSCULAR VOLUME 83 fl (80-97); MONOCYTES % (AUTO) 6.3 % (3-13); PLATELET COUNT 191 10^3/uL (150-450); RED BLOOD COUNT 3.94 10^6/uL (4.35-5.55); RED CELL DISTRIBUTION WIDTH 16.1 % (11.5-14.0); SEGMENTED NEUTROPHILS % (AUTO) 73.5 % (42-78); TOTAL CELLS COUNTED % (AUTO) 100 %; WHITE BLOOD COUNT 12.2 10^3/uL (4.0-10.5)
[2017-11-10 05:50] LABS: ALANINE AMINOTRANSFERASE 26 U/L (21-72); ALBUMIN 2.2 g/dL (3.5-5.0); ALKALINE PHOSPHATASE 66 U/L (38-126); ANION GAP 6 (5-19); ASPARTATE AMINO TRANSFERASE 14 U/L (17-59); BILIRUBIN,DIRECT 0.2 mg/dL (0.0-0.4); BILIRUBIN,TOTAL 0.2 mg/dL (0.2-1.3); BLOOD UREA NITROGEN 9 mg/dL (7-20); CALCIUM 7.3 mg/dL (8.4-10.2); CARBON DIOXIDE 28 mmol/L (22-30); CHLORIDE 111 mmol/L (98-107); GLUCOSE 156 mg/dL (75-110); SODIUM 144.5 mmol/L (137-145); TOTAL PROTEIN 4.9 g/dL (6.3-8.2)
[2017-11-10 05:53] LABS: POTASSIUM 2.7 mmol/L (3.6-5.0)
[2017-11-10] MEDS ORDERED: POTASSIUM CHLORIDE 20 MEQ/50 ML RTU IV SCH (06:30)
[2017-11-10] MEDS: DILTIAZEM HCL/D5W 125 MG/125 ML RTUINJ IV PRN (08:23)
[2017-11-10] MEDS ORDERED: DIPHENHYDRAMINE HCL 50 MG/ML VIAL ONE (10:11)
[2017-11-10] MEDS ORDERED: ONDANSETRON HCL INJ/PF 4 MG/2 ML SDV ONE (10:11)
[2017-11-10] MEDS ORDERED: MIDAZOLAM 2 MG/2 ML INJ ONE (10:12)
[2017-11-10] MEDS ORDERED: FENTANYL CITRATE INJ/PF 100 MCG/2 ML AMPUL ONE (10:12)
[2017-11-10] MEDS ORDERED: FLUMAZENIL INJ 0.5 MG/5 ML VIAL ONE (10:12)
[2017-11-10] MEDS ORDERED: NALOXONE HCL INJ/PF 0.4 MG/1 ML SDV ONE (10:12)
[2017-11-10] MEDS ORDERED: GLUCAGON,HUMAN RECOMB 1 MG INJ ONE (10:13)
[2017-11-10] MEDS ORDERED: EPINEPHRINE INJ 1 MG/10 ML DISP.SYRIN ONE (10:13)
[2017-11-10 12:17] LABS: ANION GAP 5 (5-19); BLOOD UREA NITROGEN 8 mg/dL (7-20); CALCIUM 7.5 mg/dL (8.4-10.2); CARBON DIOXIDE 29 mmol/L (22-30); CHLORIDE 108 mmol/L (98-107); GLUCOSE 138 mg/dL (75-110); SODIUM 142.4 mmol/L (137-145)
--- NOTE | 2017-11-10 12:26 | PDOC PROGRESS REPORT ---
Subjective Progress Note for:: 11/10/17 Subjective:: Patient seen on morning rounds. Patient to undergo upper GI endoscopy later on today. Currently still n.p.o. and has NG tube in place. Small bowel obstruction seems improved. Patient noted to be somewhat better. Patient noted to be gradually improving in general condition. Heart rhythm is more stable. Currently on IV Lopressor at 2.5 mg p.o. every 6 [id number] which she seems to be tolerating well. Patient also on a small amount of diltiazem drip. Reason For Visit: SMALL BOWEL OBSTRUCTION,DILATED COLON,UTI,COPD, Physical Exam Vital Signs: Temp Pulse Resp BP Pulse Ox 97.9 F 83 20 143/74 H 97 11/10/17 09:28 11/10/17 09:28 11/10/17 09:28 11/10/17 09:28 11/10/17 09:28 Intake & Output 11/09/17 11/10/17 11/11/17 06:59 06:59 06:59 Intake Total 2587 2852 Output Total 300 Balance 2287 2852 Weight 56.9 kg 60.5 kg Exam: GENERAL: well-nourished and in no acute distress. HEAD: Atraumatic, normocephalic. EYES: Pupils equal round and reactive to light, extraocular movements intact, sclera anicteric, conjunctiva are normal. ENT: TMs normal, nares patent, oropharynx clear without exudates. Moist mucous membranes. No oral ulcerations or bleeding gums noted NECK: supple without lymphadenopathy or JVD. Trachea is central. No cervical or axillary lymphadenopathy noted. Carotids are 2+. Previous central tracheostomy scar noted. LUNGS: Breath sounds bibasilar fine crackles at bases. No significant dullness noted. CHEST: Palpation of chest wall shows no significant chest wall tenderness. HEART: Star INSTRUMENTATION TECHNICIAN, No PSH, 2/6 THOMAS aortic area, 1/6 [place] systolic murmur mitral area, rubs or gallops. ABDOMEN: Soft with normal bowel sounds. No guarding, no rebound. No rigidity noted . No masses appreciated. NG tube noted. No significant NG drainage noted. EXTREMITIES: Pedal pulses are 1-2+, no calf tenderness noted, Trace + pedal edema noted. No clubbing or cyanosis. NEUROLOGICAL: No new changes noted. Patient has known quadriparesis. He is however able to move his upper extremity to some extent. PSYCH: No behavioral abnormalities noted. SKIN: No significant ecchymosis, rash, ulcerations or signs of pruritus noted. MUSCULOSKELETAL EXAM: No significant joint swelling noted. Results Laboratory Results: 11/10/17 04:00 11/10/17 11:45 11/09/17 11/10/17 11/10/17 15:20 04:00 04:00 WBC 12.2 H RBC 3.94 L Hgb 10.6 L Hct 32.5 L MCV 83 MCH 26.8 L MCHC 32.5 RDW 16.1 H Plt Count 191 Seg Neutrophils % 73.5 Lymphocytes % 16.4 Monocytes % 6.3 Eosinophils % 3.5 Basophils % 0.3 Absolute Neutrophils 9.0 H Absolute Lymphocytes 2.0 Absolute Monocytes 0.8 Absolute Eosinophils 0.4 Absolute Basophils 0.0 Sodium 147.2 H 144.5 Potassium 3.0 L* 2.7 L* Chloride 114 H 111 H Carbon Dioxide 28 28 Anion Gap 5 6 BUN 13 9 Creatinine 0.58 0.57 Est GFR ( Amer) > 60 > 60 Est GFR (Non-Af Amer) > 60 > 60 Glucose 196 H 156 H Calcium 7.5 L 7.3 L Magnesium 1.7 Total Bilirubin 0.2 AST 14 L ALT 26 Alkaline Phosphatase 66 Total Protein 4.9 L Albumin 2.2 L 11/10/17 11:45 WBC RBC Hgb Hct MCV MCH MCHC RDW Plt Count Seg Neutrophils % Lymphocytes % Monocytes % Eosinophils % Basophils % Absolute Neutrophils Absolute Lymphocytes Absolute Monocytes Absolute Eosinophils Absolute Basophils Sodium 142.4 Potassium 3.0 L* Chloride 108 H Carbon Dioxide 29 Anion Gap 5 BUN 8 Creatinine 0.60 Est GFR ( Amer) > 60 Est GFR (Non-Af Amer) > 60 Glucose 138 H Calcium 7.5 L Magnesium Total Bilirubin AST ALT Alkaline Phosphatase Total Protein Albumin Impressions: Chest X-Ray 11/06/17 00:00 IMPRESSION: Appropriate nasogastric tube. Head CT 11/06/17 00:00 IMPRESSION: CHRONIC CHANGES OF ATROPHY AND MICROVASCULAR ISCHEMIA. RIGHT TEMPORAL CRANIOTOMY. NO ACUTE PROCESS. EVIDENCE OF ACUTE STROKE: NO. Abdomen/Pelvis CT 11/06/17 00:59 IMPRESSION: 1. Findings compatible with likely partial small bowel obstruction with transition to decompressed loops of small bowel distally. Exact transition point is not definitely identified. 2. Redemonstrated large bowel ileus pattern. 3. Bilateral staghorn renal calculi without evidence of hydronephrosis. This exam was performed according to our departmental dose-optimization program, which includes automated exposure control, adjustment of the mA and/or kV according to patient size and/or use of iterative reconstruction technique. Assessment & Plan - Diagnosis (1) Atrial fibrillation Qualifiers: Atrial fibrillation type: paroxysmal Qualified Code(s): I48.0 - Paroxysmal atrial fibrillation Is this a current diagnosis for this admission?: Yes (2) Multifocal atrial tachycardia Is this a current diagnosis for this admission?: Yes (3) Abnormal EKG Is this a current diagnosis for this admission?: Yes (4) Type 2 diabetes mellitus Qualifiers: Diabetes mellitus predatory animal exterminator insulin use: unspecified half-way insulin use status Diabetes mellitus complication status: with unspecified complications Qualified Code(s): E11.8 - Type 2 diabetes mellitus with unspecified complications Is this a current diagnosis for this admission?: Yes (5) COPD (chronic obstructive pulmonary disease) Qualifiers: COPD type: unspecified COPD Qualified Code(s): J44.9 - Chronic obstructive pulmonary disease, unspecified Is this a current diagnosis for this admission?: Yes (6) Coronary artery disease Qualifiers: Coronary Disease-Associated Artery/Lesion type: [place] artery [place] vs. transplanted heart: [place] heart Associated angina: angina presence unspecified Qualified Code(s): I25.10 - Atherosclerotic heart disease of [place] coronary artery without angina pectoris Is this a current diagnosis for this admission?: Yes (7) Quadriplegia Is this a current diagnosis for this admission?: Yes (8) Small bowel obstruction Is this a current diagnosis for this admission?: Yes - Notes Notes: Patient to undergo upper GI endoscopy. Once cleared for p.o. intake, will recommend that patient be placed on metoprolol succinate, 25 mg p.o. every 12. May consider adding Cardizem at low-dose starting at 30 mg p.o. every 8 if patient continues with tachycardia. Also continue IV metoprolol at 2.5 mg every 6 as needed as needed. Patient would need to be observed for any exacerbation of COPD with metoprolol on board. At this point will sign off. Please reconsult if needed. Atrial fibrillation: Paroxysmal. Patient has a history of atrial fibrillation. Review of current EKG strips and EKG shows that patient is actually having a atrial tachycardia with frequent ectopics. At this point recommend rate control with beta-francisco. Beta-francisco in setting of small bowel obstruction as calcium channel blockers may cause pseudoobstruction. Multifocal atrial tachycardia: Recommend maintaining electrolytes within normal limits. May consider amiodarone therapy if needed. Abnormal EKG: Most likely represent underlying CAD. Patient however not a candidate for any ischemia evaluation at this point being bedbound and with DNR status and multiple other medical problems. Diabetes: Recommend good control but avoid any hyper or hypoglycemia. Coronary artery disease: Patient without any significant angina symptoms. COPD: Patient has a history of it but currently respiration seems stable. Quadriplegia: Chronic unlikely to improve. Small bowel obstruction: Recommend conservative management unless surgery absolutely needed. Patient will be considered above average risk due to ongoing multiple serious medical problems. Will sign off. Please reconsult if needed. - Time Time with patient: 15-25 minutes - CODE STATUS : was discussed, patient remains DO NOT RESUSCITATE. Surrogate decision-maker unchanged. Multiple medical problems were addressed. More than 50% of the time spent coordinating care, discussing management plans with involved caregivers. Management plans discussed with involved personnels. Medical decision making was of moderate to high complexity, patient's has multiple comorbidities. Medications reviewed and adjusted accordingly: Yes
--- NOTE | 2017-11-10 12:30 | PDOC PROGRESS REPORT ---
Subjective Progress Note for:: 11/10/17 Subjective:: patient was scheduled for EGD today however problems with his K was repleted and recheck still is low will not be able to proceed today biliary output thru NGT, likely has some trauma related to either previous placement or suction force on the mucosa will will schedule for tomorrow for more adequate K replacement Reason For Visit: SMALL BOWEL OBSTRUCTION,DILATED COLON,UTI,COPD, Physical Exam Vital Signs: Temp Pulse Resp BP Pulse Ox 97.9 F 83 20 143/74 H 97 11/10/17 09:28 11/10/17 09:28 11/10/17 09:28 11/10/17 09:28 11/10/17 09:28 Intake & Output 11/09/17 11/10/17 11/11/17 06:59 06:59 06:59 Intake Total 2587 2852 Output Total 300 Balance 2287 2852 Weight 56.9 kg 60.5 kg General appearance: PRESENT: well-developed, well-nourished Head exam: PRESENT: atraumatic, normocephalic Eye exam: PRESENT: conjunctiva pink. ABSENT: periorbital swelling, scleral icterus Throat exam: ABSENT: tonsillar exudate, tonsillogmegaly Neck exam: ABSENT: thyromegaly Respiratory exam: PRESENT: symmetrical, unlabored. ABSENT: tachypnea, wheezes Cardiovascular exam: PRESENT: +S1, +S2 GI/Abdominal exam: PRESENT: soft. ABSENT: rebound, rigid Extremities exam: ABSENT: joint swelling Neurological exam: PRESENT: alert, awake Skin exam: PRESENT: normal color. ABSENT: mottled, pallor, petechiae, urticaria Results Laboratory Results: 11/10/17 04:00 11/10/17 11:45 11/09/17 11/10/17 11/10/17 15:20 04:00 04:00 WBC 12.2 H RBC 3.94 L Hgb 10.6 L Hct 32.5 L MCV 83 MCH 26.8 L MCHC 32.5 RDW 16.1 H Plt Count 191 Seg Neutrophils % 73.5 Lymphocytes % 16.4 Monocytes % 6.3 Eosinophils % 3.5 Basophils % 0.3 Absolute Neutrophils 9.0 H Absolute Lymphocytes 2.0 Absolute Monocytes 0.8 Absolute Eosinophils 0.4 Absolute Basophils 0.0 Sodium 147.2 H 144.5 Potassium 3.0 L* 2.7 L* Chloride 114 H 111 H Carbon Dioxide 28 28 Anion Gap 5 6 BUN 13 9 Creatinine 0.58 0.57 Est GFR ( Amer) > 60 > 60 Est GFR (Non-Af Amer) > 60 > 60 Glucose 196 H 156 H Calcium 7.5 L 7.3 L Magnesium 1.7 Total Bilirubin 0.2 AST 14 L ALT 26 Alkaline Phosphatase 66 Total Protein 4.9 L Albumin 2.2 L 11/10/17 11:45 WBC RBC Hgb Hct MCV MCH MCHC RDW Plt Count Seg Neutrophils % Lymphocytes % Monocytes % Eosinophils % Basophils % Absolute Neutrophils Absolute Lymphocytes Absolute Monocytes Absolute Eosinophils Absolute Basophils Sodium 142.4 Potassium 3.0 L* Chloride 108 H Carbon Dioxide 29 Anion Gap 5 BUN 8 Creatinine 0.60 Est GFR ( Amer) > 60 Est GFR (Non-Af Amer) > 60 Glucose 138 H Calcium 7.5 L Magnesium Total Bilirubin AST ALT Alkaline Phosphatase Total Protein Albumin Impressions: Chest X-Ray 11/06/17 00:00 IMPRESSION: Appropriate nasogastric tube. Head CT 11/06/17 00:00 IMPRESSION: CHRONIC CHANGES OF ATROPHY AND MICROVASCULAR ISCHEMIA. RIGHT TEMPORAL CRANIOTOMY. NO ACUTE PROCESS. EVIDENCE OF ACUTE STROKE: NO. Abdomen/Pelvis CT 11/06/17 00:59 IMPRESSION: 1. Findings compatible with likely partial small bowel obstruction with transition to decompressed loops of small bowel distally. Exact transition point is not definitely identified. 2. Redemonstrated large bowel ileus pattern. 3. Bilateral staghorn renal calculi without evidence of hydronephrosis. This exam was performed according to our departmental dose-optimization program, which includes automated exposure control, adjustment of the mA and/or kV according to patient size and/or use of iterative reconstruction technique. Assessment & Plan - Diagnosis (1) Acute upper GI bleed Is this a current diagnosis for this admission?: Yes Plan: more biliary output now had some coffee grounds however K still low, needs further replacement and K> 3.8 prior to proceeding will reschedule for tomorrow NPO post midnight - Time Time Spent with patient: 15-24 minutes
[2017-11-10 12:41] LABS: ABSOLUTE EOSINOPHILS # (AUTO) 0.4 10^3/uL (0.0-0.6); ABSOLUTE LYMPHOCYTES (AUTO) 1.5 10^3/uL (0.5-4.7); ABSOLUTE MONOCYTES (AUTO) 0.6 10^3/uL (0.1-1.4); ABSOLUTE NEUT (AUTO) 8.9 10^3/uL (1.7-8.2); BASOPHILS % (AUTO) 0.3 % (0-2); EOSINOPHILS % (AUTO) 3.6 % (0-6); MEAN CORPUSCULAR HEMOGLOBIN 26.6 pg (27.0-33.4); MEAN CORPUSCULAR HGB CONC 32.2 g/dL (32.0-36.0); MEAN CORPUSCULAR VOLUME 83 fl (80-97); MONOCYTES % (AUTO) 5.3 % (3-13); PLATELET COUNT 159 10^3/uL (150-450); RED BLOOD COUNT 3.38 10^6/uL (4.35-5.55); RED CELL DISTRIBUTION WIDTH 16.4 % (11.5-14.0); SEGMENTED NEUTROPHILS % (AUTO) 77.8 % (42-78); TOTAL CELLS COUNTED % (AUTO) 100 %; WHITE BLOOD COUNT 11.5 10^3/uL (4.0-10.5)
[2017-11-10] MEDS: FAMOTIDINE INJ/PF 20 MG/2 ML SDV IV SCH ×2 (12:47→21:07)
[2017-11-10] MEDS: VANCOMYCIN HCL 750 MG in DEXTROSE 5%-WATER 250 ML IV SCH ×2 (12:48→21:07)
[2017-11-10] MEDS: POTASSIUM CHLORIDE 20 MEQ/50 ML RTU IV SCH ×2 (18:24→18:41)
--- NOTE | 2017-11-10 19:13 | PDOC PROGRESS REPORT ---
Subjective Progress Note for:: 11/10/17 Subjective:: No abdominal pain. Moved his bowels and passed flatus today. Reason For Visit: SMALL BOWEL OBSTRUCTION,DILATED COLON,UTI,COPD, Physical Exam Vital Signs: Temp Pulse Resp BP Pulse Ox 98.5 F 84 16 136/67 H 98 11/10/17 16:08 11/10/17 18:00 11/10/17 16:08 11/10/17 18:00 11/10/17 16:08 Intake & Output 11/09/17 11/10/17 11/11/17 06:59 06:59 06:59 Intake Total 2587 2852 Output Total 300 Balance 2287 2852 Weight 56.9 kg 60.5 kg General appearance: PRESENT: no acute distress Head exam: PRESENT: atraumatic Respiratory exam: PRESENT: clear to auscultation donovan. ABSENT: rales, rhonchi, wheezes Cardiovascular exam: PRESENT: +S1, +S2 GI/Abdominal exam: PRESENT: normal bowel sounds, soft, other - mild distension Neurological exam: PRESENT: alert, oriented to person, oriented to place, oriented to time, oriented to situation, CN II-XII grossly intact Results Laboratory Results: 11/10/17 12:10 11/10/17 11:45 11/10/17 11/10/17 11/10/17 04:00 04:00 11:45 WBC 12.2 H RBC 3.94 L Hgb 10.6 L Hct 32.5 L MCV 83 MCH 26.8 L MCHC 32.5 RDW 16.1 H Plt Count 191 Seg Neutrophils % 73.5 Lymphocytes % 16.4 Monocytes % 6.3 Eosinophils % 3.5 Basophils % 0.3 Absolute Neutrophils 9.0 H Absolute Lymphocytes 2.0 Absolute Monocytes 0.8 Absolute Eosinophils 0.4 Absolute Basophils 0.0 Sodium 144.5 142.4 Potassium 2.7 L* 3.0 L* Chloride 111 H 108 H Carbon Dioxide 28 29 Anion Gap 6 5 BUN 9 8 Creatinine 0.57 0.60 Est GFR ( Amer) > 60 > 60 Est GFR (Non-Af Amer) > 60 > 60 Glucose 156 H 138 H Calcium 7.3 L 7.5 L Magnesium 1.7 Total Bilirubin 0.2 AST 14 L ALT 26 Alkaline Phosphatase 66 Total Protein 4.9 L Albumin 2.2 L 11/10/17 12:10 WBC 11.5 H RBC 3.38 L Hgb 9.0 L Hct 28.0 L MCV 83 MCH 26.6 L MCHC 32.2 RDW 16.4 H Plt Count 159 Seg Neutrophils % 77.8 Lymphocytes % 13.0 Monocytes % 5.3 Eosinophils % 3.6 Basophils % 0.3 Absolute Neutrophils 8.9 H Absolute Lymphocytes 1.5 Absolute Monocytes 0.6 Absolute Eosinophils 0.4 Absolute Basophils 0.0 Sodium Potassium Chloride Carbon Dioxide Anion Gap BUN Creatinine Est GFR ( Amer) Est GFR (Non-Af Amer) Glucose Calcium Magnesium Total Bilirubin AST ALT Alkaline Phosphatase Total Protein Albumin Impressions: Chest X-Ray 11/06/17 00:00 IMPRESSION: Appropriate nasogastric tube. Head CT 11/06/17 00:00 IMPRESSION: CHRONIC CHANGES OF ATROPHY AND MICROVASCULAR ISCHEMIA. RIGHT TEMPORAL CRANIOTOMY. NO ACUTE PROCESS. EVIDENCE OF ACUTE STROKE: NO. Abdomen/Pelvis CT 11/06/17 00:59 IMPRESSION: 1. Findings compatible with likely partial small bowel obstruction with transition to decompressed loops of small bowel distally. Exact transition point is not definitely identified. 2. Redemonstrated large bowel ileus pattern. 3. Bilateral staghorn renal calculi without evidence of hydronephrosis. This exam was performed according to our departmental dose-optimization program, which includes automated exposure control, adjustment of the mA and/or kV according to patient size and/or use of iterative reconstruction technique. Assessment & Plan - Diagnosis (1) Adynamic ileus Is this a current diagnosis for this admission?: Yes - Plan Summary Plan Summary: The NGT was removed. Patient will be started on clears, NPO overnight for EGD tomorrow (apparently bloody NGT drainage was noted earlier).
--- NOTE | 2017-11-10 20:38 | PDOC PROGRESS REPORT ---
Subjective Progress Note for:: 11/10/17 Subjective:: 67-year-old male with small bowel obstruction managed by surgery with an NG tube to suction, progressing to partial small bowel obstruction. Patient receiving multiple runs of potassium today to replete his hypokalemia. EGD planned per GI, possibly tomorrow. Patient denies pain. Leukocytosis improving on meropenem. Concern for bowel wall injury with fecal material sitting near bowel wall. Patient had noted renal calculi without hydronephrosis or UTI. Reason For Visit: SMALL BOWEL OBSTRUCTION,DILATED COLON,UTI,COPD, Physical Exam Vital Signs: Temp Pulse Resp BP Pulse Ox 98.0 F 83 12 132/69 H 98 11/10/17 19:47 11/10/17 20:00 11/10/17 19:47 11/10/17 20:01 11/10/17 20:01 Intake & Output 11/09/17 11/10/17 11/11/17 06:59 06:59 06:59 Intake Total 2587 2852 Output Total 300 Balance 2287 2852 Weight 56.9 kg 60.5 kg General appearance: PRESENT: no acute distress, thin Head exam: PRESENT: atraumatic, normocephalic Eye exam: PRESENT: EOMI, PERRLA Mouth exam: PRESENT: moist, neck supple, tongue midline Throat exam: PRESENT: tonsillar erythema, tonsillar exudate, tonsillogmegaly Neck exam: PRESENT: tenderness, thyromegaly, tracheal deviation Respiratory exam: PRESENT: accessory muscle use, chest wall tenderness, crackles Cardiovascular exam: PRESENT: RRR, +S1, +S2. ABSENT: bradycardia, diastolic murmur, tachycardia Pulses: PRESENT: normal radial pulses, +2 pedal pulses bilateral Vascular exam: PRESENT: normal capillary refill. ABSENT: pallor GI/Abdominal exam: PRESENT: distended. ABSENT: ascites, firm, mass, rebound, rigid, soft Extremities exam: ABSENT: joint swelling, +2 edema Neurological exam: PRESENT: altered, oriented to person. ABSENT: oriented to place, oriented to time Psychiatric exam: PRESENT: flat affect. ABSENT: agitated, anxious Focused psych exam: ABSENT: delusional, internal stimuli, paranoid Skin exam: ABSENT: abrasion, cyanosis, normal color Results Laboratory Results: 11/10/17 12:10 11/10/17 11:45 0311/10/17 11/10/17 04:00 04:00 11:45 WBC 12.2 H RBC 3.94 L Hgb 10.6 L Hct 32.5 L MCV 83 MCH 26.8 L MCHC 32.5 RDW 16.1 H Plt Count 191 Seg Neutrophils % 73.5 Lymphocytes % 16.4 Monocytes % 6.3 Eosinophils % 3.5 Basophils % 0.3 Absolute Neutrophils 9.0 H Absolute Lymphocytes 2.0 Absolute Monocytes 0.8 Absolute Eosinophils 0.4 Absolute Basophils 0.0 Sodium 144.5 142.4 Potassium 2.7 L* 3.0 L* Chloride 111 H 108 H Carbon Dioxide 28 29 Anion Gap 6 5 BUN 9 8 Creatinine 0.57 0.60 Est GFR ( Amer) > 60 > 60 Est GFR (Non-Af Amer) > 60 > 60 Glucose 156 H 138 H Calcium 7.3 L 7.5 L Magnesium 1.7 Total Bilirubin 0.2 AST 14 L ALT 26 Alkaline Phosphatase 66 Total Protein 4.9 L Albumin 2.2 L 11/10/17 12:10 WBC 11.5 H RBC 3.38 L Hgb 9.0 L Hct 28.0 L MCV 83 MCH 26.6 L MCHC 32.2 RDW 16.4 H Plt Count 159 Seg Neutrophils % 77.8 Lymphocytes % 13.0 Monocytes % 5.3 Eosinophils % 3.6 Basophils % 0.3 Absolute Neutrophils 8.9 H Absolute Lymphocytes 1.5 Absolute Monocytes 0.6 Absolute Eosinophils 0.4 Absolute Basophils 0.0 Sodium Potassium Chloride Carbon Dioxide Anion Gap BUN Creatinine Est GFR ( Amer) Est GFR (Non-Af Amer) Glucose Calcium Magnesium Total Bilirubin AST ALT Alkaline Phosphatase Total Protein Albumin Impressions: Chest X-Ray 11/06/17 00:00 IMPRESSION: Appropriate nasogastric tube. Head CT 11/06/17 00:00 IMPRESSION: CHRONIC CHANGES OF ATROPHY AND MICROVASCULAR ISCHEMIA. RIGHT TEMPORAL CRANIOTOMY. NO ACUTE PROCESS. EVIDENCE OF ACUTE STROKE: NO. Abdomen/Pelvis CT 11/06/17 00:59 IMPRESSION: 1. Findings compatible with likely partial small bowel obstruction with transition to decompressed loops of small bowel distally. Exact transition point is not definitely identified. 2. Redemonstrated large bowel ileus pattern. 3. Bilateral staghorn renal calculi without evidence of hydronephrosis. This exam was performed according to our departmental dose-optimization program, which includes automated exposure control, adjustment of the mA and/or kV according to patient size and/or use of iterative reconstruction technique. Assessment & Plan - Plan Summary Plan Summary: 1. Sepsis secondary to staph epi present on admission and culture growth. no growth and blood cultures taken on 11/08/2017. Continue vancomycin, meropenem 2. GI bleed. EGD tomorrow possible 3. Atrial fibrillation. paroxysmal on IV metoprolol scheduled 4. Multifocal atrial tachycardia. Monitor, on Metoprolol 5. Type 2 Diabetes Mellitus. ssi 6. COPD continue current medications 7. Hypokalemia giving multiple KCl infusions, recheck level 8. Leukocytosis improving 9. Partial SBO with NG tube 10. GERD. PPI 11. Renal calculi without hydronephrosis 12. Hypernatremia. continue supportive IVF 13. Acute Encephalopathy. appears altered today. monitor
[2017-11-11] MEDS: METOPROLOL TARTRATE PF/INJ 5 MG/5 ML SDV IV SCH ×4 (05:00→23:18)
[2017-11-11] MEDS: DILTIAZEM HCL/D5W 125 MG/125 ML RTUINJ IV PRN (05:02)
[2017-11-11] MEDS: MEROPENEM 1 GM in NORMAL SALINE 100 ML IV SCH ×3 (05:02→21:14)
[2017-11-11 05:25] LABS: HEMATOCRIT 32.4 % (37.9-51.0); HEMOGLOBIN 10.6 g/dL (13.5-17.0); MEAN CORPUSCULAR HEMOGLOBIN 26.9 pg (27.0-33.4); MEAN CORPUSCULAR HGB CONC 32.7 g/dL (32.0-36.0); MEAN CORPUSCULAR VOLUME 82 fl (80-97); PLATELET COUNT 174 10^3/uL (150-450); RED BLOOD COUNT 3.94 10^6/uL (4.35-5.55); RED CELL DISTRIBUTION WIDTH 15.7 % (11.5-14.0)
[2017-11-11 05:54] LABS: ALBUMIN 2.2 g/dL (3.5-5.0); ANION GAP 9 (5-19); BLOOD UREA NITROGEN 8 mg/dL (7-20); CALCIUM 7.4 mg/dL (8.4-10.2); CARBON DIOXIDE 26 mmol/L (22-30); CHLORIDE 101 mmol/L (98-107); GLUCOSE 144 mg/dL (75-110); PHOSPHORUS 2.8 mg/dL (2.5-4.5); POTASSIUM 3.3 mmol/L (3.6-5.0); SODIUM 136.2 mmol/L (137-145)
[2017-11-11] MEDS: VANCOMYCIN HCL 750 MG in DEXTROSE 5%-WATER 250 ML IV SCH ×2 (11:42→21:13)
[2017-11-11] MEDS: FAMOTIDINE INJ/PF 20 MG/2 ML SDV IV SCH ×2 (11:42→21:13)
[2017-11-11] MEDS ORDERED: DIPHENHYDRAMINE HCL 50 MG/ML VIAL ONE (12:15)
[2017-11-11] MEDS ORDERED: ONDANSETRON HCL INJ/PF 4 MG/2 ML SDV ONE (12:16)
[2017-11-11] MEDS ORDERED: NALOXONE HCL INJ/PF 0.4 MG/1 ML SDV ONE (12:16)
[2017-11-11] MEDS ORDERED: MIDAZOLAM 2 MG/2 ML INJ ONE ×2 (12:16→12:17)
[2017-11-11] MEDS ORDERED: FENTANYL CITRATE INJ/PF 100 MCG/2 ML AMPUL ONE ×2 (12:17)
[2017-11-11] MEDS ORDERED: FLUMAZENIL INJ 0.5 MG/5 ML VIAL ONE (12:17)
[2017-11-11] MEDS ORDERED: GLUCAGON,HUMAN RECOMB 1 MG INJ ONE (12:18)
[2017-11-11] MEDS ORDERED: EPINEPHRINE INJ 1 MG/10 ML DISP.SYRIN ONE (12:18)
--- NOTE | 2017-11-11 13:41 | Operative Report ---
Operative Report DATE OF SURGERY: 11/11/17 Operative Report: The risks benefits and alternatives of the procedure explained to the patient in detail and informed consent is obtained.A GIF Olympus video scope was inserted into the patient's mouth and hypopharynx, the esophagus is identified intubated and insufflated, the scope was then advanced through the esophagus stomach and duodenum, retroflexion maneuver is done, the esophagus stomach and first and second portions of the duodenum examined PREOPERATIVE DIAGNOSIS: GI bleeding POSTOPERATIVE DIAGNOSIS: Gastritis status post biopsy rule out Helicobacter pylori. Also within the hiatal hernia caused by NG tube suction. No active bleeding noted OPERATION: EGD with biopsy SURGEON: STACY FUNK ANESTHESIA: Moderate Sedation - 1 mg of Versed. Conscious sedation monitoring time 30 minutes. TISSUE REMOVED OR ALTERED: Gastric mucosal specimen obtained COMPLICATIONS: None. ESTIMATED BLOOD LOSS: None. INTRAOPERATIVE FINDINGS: As noted above. PROCEDURE: Patient tolerated procedure well. No immediate postprocedure complications are noted. Patient discharged back to his room in good condition. DNR resume. PPI Avoid NG tube placement and hiatal hernia sac in future No active bleeding Follow H&H
--- NOTE | 2017-11-11 14:49 | PDOC PROGRESS REPORT ---
Subjective Progress Note for:: 11/11/17 Subjective:: Tolerated clears last night. No bowel movement yet today. EGD just completed, no active bleeding - NGT trauma and hiatal hernia noted. Reason For Visit: SMALL BOWEL OBSTRUCTION,DILATED COLON,UTI,COPD, Physical Exam Vital Signs: Temp Pulse Resp BP Pulse Ox 98.3 F 102 H 14 124/78 93 11/11/17 07:45 11/11/17 14:00 11/11/17 14:00 11/11/17 14:00 11/11/17 14:00 Intake & Output 11/10/17 11/11/17 11/12/17 06:59 06:59 06:59 Intake Total 2852 335 150 Balance 2852 335 150 Weight 60.5 kg 63.7 kg General appearance: PRESENT: no acute distress Respiratory exam: PRESENT: clear to auscultation donovan. ABSENT: rales, rhonchi, wheezes Cardiovascular exam: PRESENT: RRR. ABSENT: diastolic murmur, rubs, systolic murmur GI/Abdominal exam: PRESENT: normal bowel sounds, soft Neurological exam: PRESENT: alert, awake, oriented to person, oriented to place , oriented to time, oriented to situation, CN II-XII grossly intact, motor sensory deficit Results Laboratory Results: 11/11/17 04:05 11/11/17 04:05 11/11/17 11/11/17 04:05 04:05 WBC 14.0 H RBC 3.94 L Hgb 10.6 L Hct 32.4 L MCV 82 MCH 26.9 L MCHC 32.7 RDW 15.7 H Plt Count 174 Sodium 136.2 L Potassium 3.3 L Chloride 101 Carbon Dioxide 26 Anion Gap 9 BUN 8 Creatinine 0.79 Est GFR ( Amer) > 60 Est GFR (Non-Af Amer) > 60 Glucose 144 H Calcium 7.4 L Phosphorus 2.8 Albumin 2.2 L Impressions: Chest X-Ray 11/06/17 00:00 IMPRESSION: Appropriate nasogastric tube. Head CT 11/06/17 00:00 IMPRESSION: CHRONIC CHANGES OF ATROPHY AND MICROVASCULAR ISCHEMIA. RIGHT TEMPORAL CRANIOTOMY. NO ACUTE PROCESS. EVIDENCE OF ACUTE STROKE: NO. Abdomen/Pelvis CT 11/06/17 00:59 IMPRESSION: 1. Findings compatible with likely partial small bowel obstruction with transition to decompressed loops of small bowel distally. Exact transition point is not definitely identified. 2. Redemonstrated large bowel ileus pattern. 3. Bilateral staghorn renal calculi without evidence of hydronephrosis. This exam was performed according to our departmental dose-optimization program, which includes automated exposure control, adjustment of the mA and/or kV according to patient size and/or use of iterative reconstruction technique. Assessment & Plan - Diagnosis (1) Adynamic ileus Is this a current diagnosis for this admission?: Yes - Plan Summary Plan Summary: Continue with diet Discharge planning.
[2017-11-11] MEDS: METOCLOPRAMIDE HCL 10 MG TABLET PO PRN (17:05)
--- NOTE | 2017-11-11 17:11 | PDOC PROGRESS REPORT ---
Subjective Progress Note for:: 11/11/17 Subjective:: 67-year-old male with small bowel obstruction. Upper GI bleeding noted, underwent EGD today showed a reported NG tube injury. Patient has hypoactive bowel sounds this morning, no NG tube in place. Has a reported small mucus surrounded bowel movement. We will continue to monitor. Encourage nurse to sit patient up in chair position in bed today, gravity assisted treatment. If bowel sounds remain quiet and no further bowel movements are noted in the next 24 hours, would ask surgery to reconsider NG tube replacement. Reason For Visit: SMALL BOWEL OBSTRUCTION,DILATED COLON,UTI,COPD, Physical Exam Vital Signs: Temp Pulse Resp BP Pulse Ox 98.3 F 102 H 14 124/78 93 11/11/17 07:45 11/11/17 14:00 11/11/17 14:00 11/11/17 14:00 11/11/17 14:00 Intake & Output 11/10/17 11/11/17 11/12/17 06:59 06:59 06:59 Intake Total 2852 335 150 Balance 2852 335 150 Weight 60.5 kg 63.7 kg General appearance: PRESENT: no acute distress, cooperative, thin Head exam: PRESENT: atraumatic, normocephalic Eye exam: PRESENT: EOMI, PERRLA. ABSENT: conjunctiva pink Ear exam: PRESENT: normal external ear exam. ABSENT: bleeding Mouth exam: PRESENT: moist, neck supple, tongue midline. ABSENT: dry mucosa Neck exam: ABSENT: JVD, thyromegaly Respiratory exam: ABSENT: accessory muscle use, crackles, rales, rhonchi, wheezes Cardiovascular exam: PRESENT: RRR, +S1, +S2 Pulses: PRESENT: normal radial pulses Vascular exam: PRESENT: normal capillary refill. ABSENT: pallor GI/Abdominal exam: PRESENT: hypoactive bowel sounds, soft. ABSENT: ascites, hyperactive bowel sounds, mass, normal bowel sounds, rigid Extremities exam: ABSENT: calf tenderness, full ROM Musculoskeletal exam: PRESENT: full ROM. ABSENT: ambulatory Neurological exam: PRESENT: altered, oriented to person, CN II-XII grossly intact Psychiatric exam: ABSENT: agitated, anxious, flat affect Focused psych exam: ABSENT: catatonic, internal stimuli, pressured speech Skin exam: ABSENT: abrasion, cyanosis, dry, normal color Results Laboratory Results: 11/11/17 04:05 11/11/17 04:05 11/11/17 11/11/17 04:05 04:05 WBC 14.0 H RBC 3.94 L Hgb 10.6 L Hct 32.4 L MCV 82 MCH 26.9 L MCHC 32.7 RDW 15.7 H Plt Count 174 Sodium 136.2 L Potassium 3.3 L Chloride 101 Carbon Dioxide 26 Anion Gap 9 BUN 8 Creatinine 0.79 Est GFR ( Amer) > 60 Est GFR (Non-Af Amer) > 60 Glucose 144 H Calcium 7.4 L Phosphorus 2.8 Albumin 2.2 L Impressions: Chest X-Ray 11/06/17 00:00 IMPRESSION: Appropriate nasogastric tube. Head CT 11/06/17 00:00 IMPRESSION: CHRONIC CHANGES OF ATROPHY AND MICROVASCULAR ISCHEMIA. RIGHT TEMPORAL CRANIOTOMY. NO ACUTE PROCESS. EVIDENCE OF ACUTE STROKE: NO. Abdomen/Pelvis CT 11/06/17 00:59 IMPRESSION: 1. Findings compatible with likely partial small bowel obstruction with transition to decompressed loops of small bowel distally. Exact transition point is not definitely identified. 2. Redemonstrated large bowel ileus pattern. 3. Bilateral staghorn renal calculi without evidence of hydronephrosis. This exam was performed according to our departmental dose-optimization program, which includes automated exposure control, adjustment of the mA and/or kV according to patient size and/or use of iterative reconstruction technique. Assessment & Plan - Plan Summary Plan Summary: 1. Sepsis secondary to staphlococcal epidermidis present on admission and culture growth. no growth on blood cultures taken on 11/08/2017. Continue vancomycin, meropenem appears to be Day 4 Vancomycin coverage apears to be Day 6 Meropenem coverage Meropenem coverage for Stool burden against bowel wall/possible injury 2. GI bleed. Only NG tube trauma likely on EGD today. 3. Atrial fibrillation. paroxysmal on IV metoprolol scheduled, due to no PO tolerance at present has infusion Diltiazem if needed Cardiology following. 4. Multifocal atrial tachycardia. Monitor, on Metoprolol 5. Type 2 Diabetes Mellitus. continue ssi 6. COPD continue current medications no wheezing on exam. 7. Hypokalemia giving multiple KCl infusions 8. Leukocytosis elevated, continue empiric coverage 9. Partial SBO NG tube has been removed had one BM reported by nursing hypoactive BS on exam. 10. GERD. on pepcid 11. Renal calculi without hydronephrosis at present no signs of hydronephrosis check UA 12. Hypernatremia. resolved 13. Acute Encephalopathy. appears altered today. monitor
[2017-11-11] MEDS: POTASSI CL 20 MEQ/50 ML RIDER 20 MEQ/50 ML RTUPB IV SCH ×2 (19:25→21:18)
[2017-11-12 04:24] LABS: HEMATOCRIT 32.4 % (37.9-51.0); HEMOGLOBIN 10.7 g/dL (13.5-17.0); MEAN CORPUSCULAR HGB CONC 32.8 g/dL (32.0-36.0); MEAN CORPUSCULAR VOLUME 82 fl (80-97); PLATELET COUNT 155 10^3/uL (150-450); RED BLOOD COUNT 3.95 10^6/uL (4.35-5.55); RED CELL DISTRIBUTION WIDTH 15.9 % (11.5-14.0); WHITE BLOOD COUNT 13.4 10^3/uL (4.0-10.5)
[2017-11-12 04:31] LABS: ALBUMIN 2.2 g/dL (3.5-5.0); ANION GAP 6 (5-19); BLOOD UREA NITROGEN 9 mg/dL (7-20); CALCIUM 7.4 mg/dL (8.4-10.2); CARBON DIOXIDE 25 mmol/L (22-30); CHLORIDE 106 mmol/L (98-107); GLUCOSE 126 mg/dL (75-110); PHOSPHORUS 2.5 mg/dL (2.5-4.5); POTASSIUM 3.5 mmol/L (3.6-5.0); SODIUM 136.9 mmol/L (137-145)
[2017-11-12] MEDS: MEROPENEM 1 GM in NORMAL SALINE 100 ML IV SCH ×2 (05:08→16:55)
[2017-11-12] MEDS: METOPROLOL TARTRATE PF/INJ 5 MG/5 ML SDV IV SCH ×3 (05:09→17:47)
[2017-11-12] MEDS: DILTIAZEM HCL/D5W 125 MG/125 ML RTUINJ IV PRN (06:28)
[2017-11-12] MEDS: FAMOTIDINE INJ/PF 20 MG/2 ML SDV IV SCH ×2 (10:59→22:13)
[2017-11-12] MEDS: VANCOMYCIN HCL 750 MG in DEXTROSE 5%-WATER 250 ML IV SCH (11:03)
[2017-11-12] MEDS ORDERED: BISACODYL 10 MG SUPP.RECT PR ONE (18:00)
--- NOTE | 2017-11-12 18:45 | PDOC PROGRESS REPORT ---
Subjective Progress Note for:: 11/12/17 Subjective:: Patient is tolerating a diet and moving his bowels. Reason For Visit: SMALL BOWEL OBSTRUCTION,DILATED COLON,UTI,COPD, Physical Exam Vital Signs: Temp Pulse Resp BP Pulse Ox 97.8 F 112 H 22 H 147/79 H 95 11/12/17 16:00 11/12/17 16:00 11/12/17 16:00 11/12/17 16:00 11/12/17 16:00 Intake & Output 11/11/17 11/12/17 11/13/17 06:59 06:59 06:59 Intake Total 335 1290 100 Balance 335 1290 100 Weight 63.7 kg 59.5 kg General appearance: PRESENT: no acute distress Eye exam: PRESENT: conjunctiva pink Respiratory exam: PRESENT: clear to auscultation donovan. ABSENT: rales, rhonchi, wheezes Cardiovascular exam: PRESENT: +S1, +S2 GI/Abdominal exam: PRESENT: normal bowel sounds - only mild distension, soft Results Laboratory Results: 11/12/17 04:00 11/12/17 04:00 11/12/17 11/12/17 04:00 04:00 WBC 13.4 H RBC 3.95 L Hgb 10.7 L Hct 32.4 L MCV 82 MCH 27.0 MCHC 32.8 RDW 15.9 H Plt Count 155 Sodium 136.9 L Potassium 3.5 L Chloride 106 Carbon Dioxide 25 Anion Gap 6 BUN 9 Creatinine 0.87 Est GFR ( Amer) > 60 Est GFR (Non-Af Amer) > 60 Glucose 126 H Calcium 7.4 L Phosphorus 2.5 Albumin 2.2 L Impressions: Chest X-Ray 11/06/17 00:00 IMPRESSION: Appropriate nasogastric tube. Head CT 11/06/17 00:00 IMPRESSION: CHRONIC CHANGES OF ATROPHY AND MICROVASCULAR ISCHEMIA. RIGHT TEMPORAL CRANIOTOMY. NO ACUTE PROCESS. EVIDENCE OF ACUTE STROKE: NO. Abdomen/Pelvis CT 11/06/17 00:59 IMPRESSION: 1. Findings compatible with likely partial small bowel obstruction with transition to decompressed loops of small bowel distally. Exact transition point is not definitely identified. 2. Redemonstrated large bowel ileus pattern. 3. Bilateral staghorn renal calculi without evidence of hydronephrosis. This exam was performed according to our departmental dose-optimization program, which includes automated exposure control, adjustment of the mA and/or kV according to patient size and/or use of iterative reconstruction technique. Assessment & Plan - Diagnosis (1) Adynamic ileus Is this a current diagnosis for this admission?: Yes - Plan Summary Plan Summary: Begin discharge planning DC antibiotics Convert cardizem to po
[2017-11-12] MEDS: METOCLOPRAMIDE HCL 10 MG TABLET PO PRN (19:02)
--- NOTE | 2017-11-12 19:22 | PDOC PROGRESS REPORT ---
Subjective Progress Note for:: 11/12/17 Subjective:: 67-year-old male with adynamic ileus. Discussed case with his surgeon today. patient has had several BMs, small ones, over the past 2 days. His abdominal sounds are still somewhat hypoactive. Will sit him up to use gravity. Agree, that he can stop antibiotics. Unclear source for the Straph epi 2/2 bottles positive. TTE showed no vegetation. Appears to be many Contaminated blood cultures in this hospital, so it is possible this is not an infection. Reason For Visit: SMALL BOWEL OBSTRUCTION,DILATED COLON,UTI,COPD, Physical Exam Vital Signs: Temp Pulse Resp BP Pulse Ox 97.8 F 112 H 22 H 147/79 H 95 11/12/17 16:00 11/12/17 16:00 11/12/17 16:00 11/12/17 16:00 11/12/17 16:00 Intake & Output 11/11/17 11/12/17 11/13/17 06:59 06:59 06:59 Intake Total 335 1290 100 Balance 335 1290 100 Weight 63.7 kg 59.5 kg General appearance: PRESENT: no acute distress, thin. ABSENT: mild distress Head exam: PRESENT: atraumatic, normocephalic Eye exam: PRESENT: EOMI, PERRLA. ABSENT: conjunctiva pink, nystagmus Mouth exam: PRESENT: moist, neck supple, tongue midline. ABSENT: dry mucosa Neck exam: ABSENT: JVD, thyromegaly Respiratory exam: ABSENT: chest wall tenderness, rales, rhonchi, wheezes Cardiovascular exam: PRESENT: RRR, +S1, +S2. ABSENT: diastolic murmur, systolic murmur Pulses: PRESENT: normal radial pulses, normal dorsalis pedis pul Vascular exam: PRESENT: normal capillary refill. ABSENT: pallor GI/Abdominal exam: PRESENT: distended, hypoactive bowel sounds, soft. ABSENT: mass, Beck's sign, rigid Extremities exam: PRESENT: +2 edema. ABSENT: calf tenderness, joint swelling, pedal edema Musculoskeletal exam: PRESENT: full ROM, normal inspection Neurological exam: PRESENT: alert, oriented to person, oriented to place, oriented to time Psychiatric exam: ABSENT: agitated, anxious, flat affect, manic Focused psych exam: ABSENT: catatonic, paranoid, pressured speech Skin exam: ABSENT: cyanosis, normal color, pallor Results Laboratory Results: 11/12/17 04:00 11/12/17 04:00 11/12/17 11/12/17 04:00 04:00 WBC 13.4 H RBC 3.95 L Hgb 10.7 L Hct 32.4 L MCV 82 MCH 27.0 MCHC 32.8 RDW 15.9 H Plt Count 155 Sodium 136.9 L Potassium 3.5 L Chloride 106 Carbon Dioxide 25 Anion Gap 6 BUN 9 Creatinine 0.87 Est GFR ( Amer) > 60 Est GFR (Non-Af Amer) > 60 Glucose 126 H Calcium 7.4 L Phosphorus 2.5 Albumin 2.2 L Impressions: Chest X-Ray 11/06/17 00:00 IMPRESSION: Appropriate nasogastric tube. Head CT 11/06/17 00:00 IMPRESSION: CHRONIC CHANGES OF ATROPHY AND MICROVASCULAR ISCHEMIA. RIGHT TEMPORAL CRANIOTOMY. NO ACUTE PROCESS. EVIDENCE OF ACUTE STROKE: NO. Abdomen/Pelvis CT 11/06/17 00:59 IMPRESSION: 1. Findings compatible with likely partial small bowel obstruction with transition to decompressed loops of small bowel distally. Exact transition point is not definitely identified. 2. Redemonstrated large bowel ileus pattern. 3. Bilateral staghorn renal calculi without evidence of hydronephrosis. This exam was performed according to our departmental dose-optimization program, which includes automated exposure control, adjustment of the mA and/or kV according to patient size and/or use of iterative reconstruction technique. Assessment & Plan - Plan Summary Plan Summary: 1. Sepsis secondary to staphlococcal epidermidis. present on admission and culture growth, 2/2 blood cultures no growth on blood cultures taken on 11/08/2017. unclear source, no vegetation on TTE. appears to be Day 5 Vancomycin coverage apears to be Day 7 Meropenem coverage will hold antibiotics and monitor patient. Surgery interested in transfer back to SNF soon 2. Adynamic ileus surgery is primary. no more GI bleeding, several reported small BMs over last 2 days. 3. GI bleed. Only NG tube trauma likely on EGD 4. Atrial fibrillation. paroxysmal Cardiology following. On IV diltiazem, IV metoprolol per cardiology surgery transitioning him back to diet and PO meds. rate control per cardiology, Beta Quin better than CCB for bowel motility 5. Multifocal atrial tachycardia. Monitor, on Metoprolol 6. Type 2 Diabetes Mellitus. continue ssi 7. COPD continue current medications no wheezing on exam. 7. Hypokalemia replacing 8. Leukocytosis improving, with improving bowel picture 9. GERD. on pepcid 10. Renal calculi without hydronephrosis at present no signs of hydronephrosis check UA 11. Hypernatremia. resolved 12. Acute Encephalopathy. appears fatigued today encephalopathy has improved overall
[2017-11-12] MEDS ORDERED: METOPROLOL TARTRATE 25 MG TABLET PO ONE (20:00)
[2017-11-12] MEDS ORDERED: DILTIAZEM HCL 30 MG TABLET PO ONE (20:00)
[2017-11-12] MEDS: POTASSI CL 20 MEQ/50 ML RIDER 20 MEQ/50 ML RTUPB IV SCH ×2 (20:21→22:13)
--- NOTE | 2017-11-12 21:37 | PDOC PROGRESS REPORT ---
Subjective Progress Note for:: 11/12/17 Subjective:: I had previously signed off this patient but was called by the surgeon through the nurse to evaluate as regards changing patient to p.o. medication. Patient has been on IV Lopressor and also on IV Cardizem. I gave verbal orders to the nurse to switch patient to metoprolol succinate at 25 mg p.o. daily and also place patient on Cardizem 30 mg p.o. every 8. Reason For Visit: SMALL BOWEL OBSTRUCTION,DILATED COLON,UTI,COPD, Physical Exam Vital Signs: Temp Pulse Resp BP Pulse Ox 97.8 F 106 H 22 H 132/82 H 95 11/12/17 16:00 11/12/17 18:00 11/12/17 16:00 11/12/17 18:00 11/12/17 16:00 Intake & Output 11/11/17 11/12/17 11/13/17 06:59 06:59 06:59 Intake Total 335 1290 300 Balance 335 1290 300 Weight 63.7 kg 59.5 kg Exam: General appearance: PRESENT: no acute distress, thin. ABSENT: mild distress Head exam: PRESENT: atraumatic, normocephalic Eye exam: PRESENT: EOMI, PERRLA. ABSENT: conjunctiva pink, nystagmus Mouth exam: PRESENT: moist, neck supple, tongue midline. ABSENT: dry mucosa Neck exam: ABSENT: JVD, thyromegaly. A scar of central tracheostomy from past seen. Respiratory exam: ABSENT: chest wall tenderness, rales, rhonchi, wheezes Cardiovascular exam: PRESENT: RRR, +S1, +S2. ABSENT: diastolic murmur, systolic murmur Pulses: PRESENT: normal radial pulses, normal dorsalis pedis pul Vascular exam: PRESENT: normal capillary refill. ABSENT: pallor GI/Abdominal exam: PRESENT: distended, hypoactive bowel sounds, soft. ABSENT: mass, Beck's sign, rigid Extremities exam: PRESENT: +1 edema. ABSENT: calf tenderness, joint swelling, pedal edema Musculoskeletal exam: PRESENT: full ROM, normal inspection Neurological exam: PRESENT: alert, oriented to person, oriented to place, oriented to time. Patient is quadriplegic with some movement of both upper extremity being present. Psychiatric exam: ABSENT: agitated, anxious, flat affect, manic Focused psych exam: ABSENT: catatonic, paranoid, pressured speech Skin exam: ABSENT: cyanosis, normal color, pallor Results Laboratory Results: 11/12/17 04:00 11/12/17 04:00 11/12/17 11/12/17 04:00 04:00 WBC 13.4 H RBC 3.95 L Hgb 10.7 L Hct 32.4 L MCV 82 MCH 27.0 MCHC 32.8 RDW 15.9 H Plt Count 155 Sodium 136.9 L Potassium 3.5 L Chloride 106 Carbon Dioxide 25 Anion Gap 6 BUN 9 Creatinine 0.87 Est GFR ( Amer) > 60 Est GFR (Non-Af Amer) > 60 Glucose 126 H Calcium 7.4 L Phosphorus 2.5 Albumin 2.2 L Impressions: Chest X-Ray 11/06/17 00:00 IMPRESSION: Appropriate nasogastric tube. Head CT 11/06/17 00:00 IMPRESSION: CHRONIC CHANGES OF ATROPHY AND MICROVASCULAR ISCHEMIA. RIGHT TEMPORAL CRANIOTOMY. NO ACUTE PROCESS. EVIDENCE OF ACUTE STROKE: NO. Abdomen/Pelvis CT 11/06/17 00:59 IMPRESSION: 1. Findings compatible with likely partial small bowel obstruction with transition to decompressed loops of small bowel distally. Exact transition point is not definitely identified. 2. Redemonstrated large bowel ileus pattern. 3. Bilateral staghorn renal calculi without evidence of hydronephrosis. This exam was performed according to our departmental dose-optimization program, which includes automated exposure control, adjustment of the mA and/or kV according to patient size and/or use of iterative reconstruction technique. Assessment & Plan - Diagnosis (1) Atrial fibrillation Qualifiers: Atrial fibrillation type: paroxysmal Qualified Code(s): I48.0 - Paroxysmal atrial fibrillation Is this a current diagnosis for this admission?: Yes (2) Multifocal atrial tachycardia Is this a current diagnosis for this admission?: Yes (3) Abnormal EKG Is this a current diagnosis for this admission?: Yes (4) Type 2 diabetes mellitus Qualifiers: Diabetes mellitus detention insulin use: unspecified [employer] or [employer] principal insulin use status Diabetes mellitus complication status: with unspecified complications Qualified Code(s): E11.8 - Type 2 diabetes mellitus with unspecified complications Is this a current diagnosis for this admission?: Yes (5) COPD (chronic obstructive pulmonary disease) Qualifiers: COPD type: unspecified COPD Qualified Code(s): J44.9 - Chronic obstructive pulmonary disease, unspecified Is this a current diagnosis for this admission?: Yes (6) Coronary artery disease Qualifiers: Coronary Disease-Associated Artery/Lesion type: [place] artery [place] vs. transplanted heart: [place] heart Associated angina: angina presence unspecified Qualified Code(s): I25.10 - Atherosclerotic heart disease of [place] coronary artery without angina pectoris Is this a current diagnosis for this admission?: Yes (7) Quadriplegia Is this a current diagnosis for this admission?: Yes (8) Small bowel obstruction Is this a current diagnosis for this admission?: Yes - Notes Notes: Patient today switched over to p.o. medication. Patient placed on metoprolol succinate 25 mg p.o. daily. And also Cardizem 30 mg p.o. every 8 hours. These were verbal orders given to the nurse taking care of the patient. Hopefully this will be placed. - Time Time with patient: 15-25 minutes Medications reviewed and adjusted accordingly: Yes
[2017-11-13] MEDS: DILTIAZEM HCL 30 MG TABLET PO SCH ×3 (05:59→22:25)
[2017-11-13] MEDS: DEXTROSE 5%-1/2 NORMAL SALINE 1,000 ML IV PRN (06:00)
[2017-11-13 06:55] LABS: HEMOGLOBIN 10.6 g/dL (13.5-17.0); MEAN CORPUSCULAR HEMOGLOBIN 26.4 pg (27.0-33.4); MEAN CORPUSCULAR HGB CONC 32.2 g/dL (32.0-36.0); MEAN CORPUSCULAR VOLUME 82 fl (80-97); PLATELET COUNT 188 10^3/uL (150-450); RED BLOOD COUNT 4.02 10^6/uL (4.35-5.55); RED CELL DISTRIBUTION WIDTH 15.5 % (11.5-14.0)
[2017-11-13 07:29] LABS: ALBUMIN 2.2 g/dL (3.5-5.0); ANION GAP 5 (5-19); BLOOD UREA NITROGEN 8 mg/dL (7-20); CALCIUM 7.5 mg/dL (8.4-10.2); CARBON DIOXIDE 24 mmol/L (22-30); CHLORIDE 103 mmol/L (98-107); GLUCOSE 132 mg/dL (75-110); PHOSPHORUS 1.8 mg/dL (2.5-4.5); POTASSIUM 3.2 mmol/L (3.6-5.0); SODIUM 131.6 mmol/L (137-145)
[2017-11-13] MEDS: FAMOTIDINE INJ/PF 20 MG/2 ML SDV IV SCH (10:40)
[2017-11-13] MEDS: METOPROLOL TARTRATE 25 MG TABLET PO SCH ×2 (10:40→22:25)
--- NOTE | 2017-11-13 11:13 | PDOC PROGRESS REPORT ---
Subjective Progress Note for:: 11/13/17 Subjective:: comfortable, drinking well, BM today Reason For Visit: SMALL BOWEL OBSTRUCTION,DILATED COLON,UTI,COPD, Physical Exam Vital Signs: Temp Pulse Resp BP Pulse Ox 98.3 F 111 H 15 131/76 H 96 11/13/17 07:52 11/13/17 07:52 11/13/17 07:52 11/13/17 07:52 11/13/17 07:52 Intake & Output 11/12/17 11/13/17 11/14/17 06:59 06:59 06:59 Intake Total 1290 1850 Balance 1290 1850 Weight 59.5 kg 63.9 kg General appearance: PRESENT: no acute distress Mouth exam: PRESENT: moist Respiratory exam: PRESENT: clear to auscultation donovan Cardiovascular exam: PRESENT: RRR GI/Abdominal exam: PRESENT: distended, normal bowel sounds, soft Results Laboratory Results: 11/13/17 06:00 11/13/17 06:00 11/13/17 11/13/17 06:00 06:00 WBC 16.0 H RBC 4.02 L Hgb 10.6 L Hct 33.0 L MCV 82 MCH 26.4 L MCHC 32.2 RDW 15.5 H Plt Count 188 Sodium 131.6 L Potassium 3.2 L Chloride 103 Carbon Dioxide 24 Anion Gap 5 BUN 8 Creatinine 0.87 Est GFR ( Amer) > 60 Est GFR (Non-Af Amer) > 60 Glucose 132 H Calcium 7.5 L Phosphorus 1.8 L Albumin 2.2 L 11/08/17 07:47 Blood Blood Culture - Final NO GROWTH IN 5 DAYS 11/08/17 07:00 Blood Blood Culture - Final NO GROWTH IN 5 DAYS Impressions: Chest X-Ray 11/06/17 00:00 IMPRESSION: Appropriate nasogastric tube. Head CT 11/06/17 00:00 IMPRESSION: CHRONIC CHANGES OF ATROPHY AND MICROVASCULAR ISCHEMIA. RIGHT TEMPORAL CRANIOTOMY. NO ACUTE PROCESS. EVIDENCE OF ACUTE STROKE: NO. Abdomen/Pelvis CT 11/06/17 00:59 IMPRESSION: 1. Findings compatible with likely partial small bowel obstruction with transition to decompressed loops of small bowel distally. Exact transition point is not definitely identified. 2. Redemonstrated large bowel ileus pattern. 3. Bilateral staghorn renal calculi without evidence of hydronephrosis. This exam was performed according to our departmental dose-optimization program, which includes automated exposure control, adjustment of the mA and/or kV according to patient size and/or use of iterative reconstruction technique. Assessment & Plan - Diagnosis (1) Adynamic ileus Is this a current diagnosis for this admission?: Yes - Plan Summary Plan Summary: A/ resolved ileus Arrhythmia under control, on po antiarrhythmic tolerating clears P/ regular diet oral Pepcid Replace K
[2017-11-13] MEDS: POTASSIUM CHLORIDE 20 MEQ/50 ML RTU IV SCH ×3 (12:18→22:25)
--- NOTE | 2017-11-13 13:59 | PDOC PROGRESS REPORT ---
Subjective Progress Note for:: 11/13/17 Subjective:: The patient has been admitted for an adynamic ileus. This has resolved. During this hospitalization he has had complications of atrial fibrillation and multifocal atrial tachycardia. Cardiology is following. He has had issues with electrolytes. He also had initial blood cultures which were positive for staph epidermidis. Repeat blood cultures are now negative. The patient is without any complaints today. Reason For Visit: SMALL BOWEL OBSTRUCTION,DILATED COLON,UTI,COPD, Physical Exam Vital Signs: Temp Pulse Resp BP Pulse Ox 99.6 F 90 16 138/73 H 96 11/13/17 11:40 11/13/17 11:40 11/13/17 11:40 11/13/17 11:40 11/13/17 11:40 Intake & Output 11/12/17 11/13/17 11/14/17 06:59 06:59 06:59 Intake Total 1290 1850 0 Balance 1290 1850 0 Weight 59.5 kg 63.9 kg Additional comments: The patient appears much older than the age of 67. He appears to be in chronically poor health. His facial appearance is significant for a previous tracheostomy. This appears to have been decannulated but it is still partially open. The patient's lungs are somewhat diminished in the posterior lung fleming at the bases. He has poor air excursion overall. His cardiac exam at this time is regular without murmurs, gallops or rubs. The abdomen is soft but distended. Bowel sounds are present in the lower quadrants. He does not have any guarding or rebound noted and there are no hernias or masses present. The patient has decreased muscular formation of the lower extremities. His lower legs are in soft casts. Skin is otherwise clean dry and intact without lesions or rashes. Results Laboratory Results: 11/13/17 06:00 11/13/17 06:00 11/13/17 11/13/17 06:00 06:00 WBC 16.0 H RBC 4.02 L Hgb 10.6 L Hct 33.0 L MCV 82 MCH 26.4 L MCHC 32.2 RDW 15.5 H Plt Count 188 Sodium 131.6 L Potassium 3.2 L Chloride 103 Carbon Dioxide 24 Anion Gap 5 BUN 8 Creatinine 0.87 Est GFR ( Amer) > 60 Est GFR (Non-Af Amer) > 60 Glucose 132 H Calcium 7.5 L Phosphorus 1.8 L Albumin 2.2 L 11/08/17 07:47 Blood Blood Culture - Final NO GROWTH IN 5 DAYS 11/08/17 07:00 Blood Blood Culture - Final NO GROWTH IN 5 DAYS Impressions: Chest X-Ray 11/06/17 00:00 IMPRESSION: Appropriate nasogastric tube. Head CT 11/06/17 00:00 IMPRESSION: CHRONIC CHANGES OF ATROPHY AND MICROVASCULAR ISCHEMIA. RIGHT TEMPORAL CRANIOTOMY. NO ACUTE PROCESS. EVIDENCE OF ACUTE STROKE: NO. Abdomen/Pelvis CT 11/06/17 00:59 IMPRESSION: 1. Findings compatible with likely partial small bowel obstruction with transition to decompressed loops of small bowel distally. Exact transition point is not definitely identified. 2. Redemonstrated large bowel ileus pattern. 3. Bilateral staghorn renal calculi without evidence of hydronephrosis. This exam was performed according to our departmental dose-optimization program, which includes automated exposure control, adjustment of the mA and/or kV according to patient size and/or use of iterative reconstruction technique. Assessment & Plan - Diagnosis (1) Bacteremia Is this a current diagnosis for this admission?: Yes (2) Acute metabolic encephalopathy Is this a current diagnosis for this admission?: Yes (3) Adynamic ileus Is this a current diagnosis for this admission?: Yes (4) Atrial fibrillation Qualifiers: Atrial fibrillation type: paroxysmal Qualified Code(s): I48.0 - Paroxysmal atrial fibrillation Is this a current diagnosis for this admission?: Yes (5) Bladder calculus Is this a current diagnosis for this admission?: No (6) GI bleed Is this a current diagnosis for this admission?: Yes (7) Hypernatremia Is this a current diagnosis for this admission?: Yes (8) Hypokalemia Is this a current diagnosis for this admission?: Yes (9) Leukocytosis Qualifiers: Leukocytosis type: unspecified Qualified Code(s): D72.829 - Elevated white blood cell count, unspecified Is this a current diagnosis for this admission?: Yes (10) Multifocal atrial tachycardia Is this a current diagnosis for this admission?: Yes (11) Sepsis Is this a current diagnosis for this admission?: Yes (12) Type 2 diabetes mellitus Qualifiers: Diabetes mellitus complication status: with unspecified complications Is this a current diagnosis for this admission?: Yes (13) COPD (chronic obstructive pulmonary disease) Qualifiers: COPD type: unspecified COPD Qualified Code(s): J44.9 - Chronic obstructive pulmonary disease, unspecified Is this a current diagnosis for this admission?: Yes (14) GERD (gastroesophageal reflux disease) Is this a current diagnosis for this admission?: Yes - Time Time Spent with patient: 15-24 minutes - Plan Summary Plan Summary: The patient has been admitted with the above diagnoses. He received 5 days of vancomycin and 7 days of meropenem secondary to bacteremia with staph epidermidis. Repeat blood cultures are negative. Antibiotics were discontinued on 11/12/2016. The patient's adynamic ileus is resolved. Surgery is planning on transferring the patient back to intermediate facility. The rest of his medical problems are stable at this time. I have no additional recommendations for changing his current regimen.
[2017-11-13] MEDS: PHOSPHORUS #1 250 MG TABLET PO SCH (17:18)
[2017-11-13 19:10] LABS: BLOOD UREA NITROGEN 8 mg/dL (7-20); CALCIUM 7.4 mg/dL (8.4-10.2); GLUCOSE 104 mg/dL (75-110); POTASSIUM 3.2 mmol/L (3.6-5.0)
[2017-11-13 19:23] LABS: CARBON DIOXIDE 24 mmol/L (22-30); CHLORIDE 106 mmol/L (98-107); SODIUM 134.4 mmol/L (137-145)
[2017-11-13 19:24] LABS: ANION GAP 5 (5-19)
[2017-11-13] MEDS: FAMOTIDINE 20 MG TABLET PO SCH (22:25)
[2017-11-14] MEDS: POTASSIUM CHLORIDE 20 MEQ/50 ML RTU IV SCH (00:39)
[2017-11-14] MEDS: DILTIAZEM HCL 30 MG TABLET PO SCH ×3 (05:37→21:19)
[2017-11-14 06:04] LABS: ABSOLUTE BASOPHILS # (AUTO) 0.1 10^3/uL (0.0-0.2); ABSOLUTE EOSINOPHILS # (AUTO) 0.2 10^3/uL (0.0-0.6); ABSOLUTE LYMPHOCYTES (AUTO) 1.3 10^3/uL (0.5-4.7); ABSOLUTE MONOCYTES (AUTO) 0.9 10^3/uL (0.1-1.4); ABSOLUTE NEUT (AUTO) 9.4 10^3/uL (1.7-8.2); BASOPHILS % (AUTO) 0.7 % (0-2); EOSINOPHILS % (AUTO) 1.9 % (0-6); HEMATOCRIT 30.3 % (37.9-51.0); LYMPHOCYTES % (AUTO) 11.3 % (13-45); MEAN CORPUSCULAR HEMOGLOBIN 26.9 pg (27.0-33.4); MEAN CORPUSCULAR HGB CONC 32.9 g/dL (32.0-36.0); MEAN CORPUSCULAR VOLUME 82 fl (80-97); MONOCYTES % (AUTO) 7.2 % (3-13); PLATELET COUNT 209 10^3/uL (150-450); RED CELL DISTRIBUTION WIDTH 15.6 % (11.5-14.0); SEGMENTED NEUTROPHILS % (AUTO) 78.9 % (42-78); TOTAL CELLS COUNTED % (AUTO) 100 %; WHITE BLOOD COUNT 11.9 10^3/uL (4.0-10.5)
[2017-11-14 07:23] LABS: ANION GAP 8 (5-19); BLOOD UREA NITROGEN 7 mg/dL (7-20); CALCIUM 7.6 mg/dL (8.4-10.2); CARBON DIOXIDE 23 mmol/L (22-30); CHLORIDE 105 mmol/L (98-107); GLUCOSE 89 mg/dL (75-110); PHOSPHORUS 2.5 mg/dL (2.5-4.5); POTASSIUM 3.6 mmol/L (3.6-5.0)
[2017-11-14] MEDS: METOPROLOL TARTRATE 25 MG TABLET PO SCH ×2 (09:37→21:19)
[2017-11-14] MEDS: FAMOTIDINE 20 MG TABLET PO SCH ×2 (09:37→21:19)
[2017-11-14] MEDS: PHOSPHORUS #1 250 MG TABLET PO SCH ×3 (09:38→18:21)
[2017-11-14] MEDS: MAGNESIUM OXIDE 400 MG TABLET PO SCH ×2 (09:38→18:21)
--- NOTE | 2017-11-14 11:40 | PDOC PROGRESS REPORT ---
Subjective Progress Note for:: 11/14/17 Subjective:: patient alert and comfortable, reports bowel movements and tolerates diet well Reason For Visit: SMALL BOWEL OBSTRUCTION,DILATED COLON,UTI,COPD, Physical Exam Vital Signs: Temp Pulse Resp BP Pulse Ox 98.4 F 89 22 H 133/68 H 97 11/14/17 07:45 11/14/17 07:45 11/14/17 07:45 11/14/17 07:45 11/14/17 07:45 Intake & Output 11/13/17 11/14/17 11/15/17 06:59 06:59 06:59 Intake Total 1850 1737 Balance 1850 1737 Weight 63.9 kg 63.5 kg General appearance: PRESENT: no acute distress Respiratory exam: PRESENT: clear to auscultation donovan Cardiovascular exam: PRESENT: RRR GI/Abdominal exam: PRESENT: distended, hypoactive bowel sounds, soft Results Laboratory Results: 11/14/17 05:40 11/14/17 05:40 11/13/17 11/14/17 11/14/17 18:25 05:40 05:40 WBC 11.9 H RBC 3.70 L Hgb 10.0 L Hct 30.3 L MCV 82 MCH 26.9 L MCHC 32.9 RDW 15.6 H Plt Count 209 Seg Neutrophils % 78.9 H Lymphocytes % 11.3 L Monocytes % 7.2 Eosinophils % 1.9 Basophils % 0.7 Absolute Neutrophils 9.4 H Absolute Lymphocytes 1.3 Absolute Monocytes 0.9 Absolute Eosinophils 0.2 Absolute Basophils 0.1 Sodium 134.4 L 136.0 L Potassium 3.2 L 3.6 Chloride 106 105 Carbon Dioxide 24 23 Anion Gap 5 8 BUN 8 7 Creatinine 0.88 0.86 Est GFR ( Amer) > 60 > 60 Est GFR (Non-Af Amer) > 60 > 60 Glucose 104 89 Calcium 7.4 L 7.6 L Phosphorus 2.5 Magnesium 1.6 11/08/17 07:47 Blood Blood Culture - Final NO GROWTH IN 5 DAYS Impressions: Chest X-Ray 11/06/17 00:00 IMPRESSION: Appropriate nasogastric tube. Head CT 11/06/17 00:00 IMPRESSION: CHRONIC CHANGES OF ATROPHY AND MICROVASCULAR ISCHEMIA. RIGHT TEMPORAL CRANIOTOMY. NO ACUTE PROCESS. EVIDENCE OF ACUTE STROKE: NO. Abdomen/Pelvis CT 11/06/17 00:59 IMPRESSION: 1. Findings compatible with likely partial small bowel obstruction with transition to decompressed loops of small bowel distally. Exact transition point is not definitely identified. 2. Redemonstrated large bowel ileus pattern. 3. Bilateral staghorn renal calculi without evidence of hydronephrosis. This exam was performed according to our departmental dose-optimization program, which includes automated exposure control, adjustment of the mA and/or kV according to patient size and/or use of iterative reconstruction technique. Assessment & Plan - Diagnosis (1) Adynamic ileus Is this a current diagnosis for this admission?: Yes - Plan Summary Plan Summary: A/ Quadruplegic Resolved adynamic ileus Bowel function returned Regular diet tolerated Abdomen benign on PE P/ No acute General Surgery issues identified I will sign off, please call me with questions
[2017-11-14] MEDS ORDERED: NYSTATIN TOPICAL POWDER 15 GM TP ONE (13:45)
--- NOTE | 2017-11-14 14:18 | PDOC PROGRESS REPORT ---
Subjective Progress Note for:: 11/14/17 Subjective:: The patient has been admitted for an adynamic ileus. This has resolved. During this hospitalization he has had complications of atrial fibrillation and multifocal atrial tachycardia. Cardiology is following. He has had issues with electrolytes. He also had initial blood cultures which were positive for staph epidermidis. Repeat blood cultures are now negative. The patient is without any complaints today. He is passing flatus and having bowel movements. Reason For Visit: SMALL BOWEL OBSTRUCTION,DILATED COLON,UTI,COPD, Physical Exam Vital Signs: Temp Pulse Resp BP Pulse Ox 97.8 F 80 26 H 134/64 H 99 11/14/17 11:26 11/14/17 11:26 11/14/17 11:26 11/14/17 11:26 11/14/17 11:26 Intake & Output 11/13/17 11/14/17 11/15/17 06:59 06:59 06:59 Intake Total 1850 1737 400 Balance 1850 1737 400 Weight 63.9 kg 63.5 kg Additional comments: The patient is lying in bed. He wakes up easily. He does not appear to be in any distress. He does not appear to be toxic. His facial appearance is unremarkable. He has evidence of a tracheostomy which has been decannulated. His lungs are clear to auscultation bilaterally. His cardiac exam is regular. I do not appreciate any murmurs, gallops or rubs. The abdomen is soft and flat. Bowel sounds are present. He does not have any guarding or rebound noted. There are no hernias or masses. Lower extremities demonstrate very decreased muscle tone. Legs are somewhat flaccid. Skin is warm dry and intact. No lesions or rashes are noted in the visible areas. Results Laboratory Results: 11/14/17 05:40 11/14/17 05:40 11/13/17 11/14/17 11/14/17 18:25 05:40 05:40 WBC 11.9 H RBC 3.70 L Hgb 10.0 L Hct 30.3 L MCV 82 MCH 26.9 L MCHC 32.9 RDW 15.6 H Plt Count 209 Seg Neutrophils % 78.9 H Lymphocytes % 11.3 L Monocytes % 7.2 Eosinophils % 1.9 Basophils % 0.7 Absolute Neutrophils 9.4 H Absolute Lymphocytes 1.3 Absolute Monocytes 0.9 Absolute Eosinophils 0.2 Absolute Basophils 0.1 Sodium 134.4 L 136.0 L Potassium 3.2 L 3.6 Chloride 106 105 Carbon Dioxide 24 23 Anion Gap 5 8 BUN 8 7 Creatinine 0.88 0.86 Est GFR ( Amer) > 60 > 60 Est GFR (Non-Af Amer) > 60 > 60 Glucose 104 89 Calcium 7.4 L 7.6 L Phosphorus 2.5 Magnesium 1.6 Impressions: Chest X-Ray 11/06/17 00:00 IMPRESSION: Appropriate nasogastric tube. Head CT 11/06/17 00:00 IMPRESSION: CHRONIC CHANGES OF ATROPHY AND MICROVASCULAR ISCHEMIA. RIGHT TEMPORAL CRANIOTOMY. NO ACUTE PROCESS. EVIDENCE OF ACUTE STROKE: NO. Abdomen/Pelvis CT 11/06/17 00:59 IMPRESSION: 1. Findings compatible with likely partial small bowel obstruction with transition to decompressed loops of small bowel distally. Exact transition point is not definitely identified. 2. Redemonstrated large bowel ileus pattern. 3. Bilateral staghorn renal calculi without evidence of hydronephrosis. This exam was performed according to our departmental dose-optimization program, which includes automated exposure control, adjustment of the mA and/or kV according to patient size and/or use of iterative reconstruction technique. Assessment & Plan - Diagnosis (1) Bacteremia Is this a current diagnosis for this admission?: Yes (2) Acute metabolic encephalopathy Is this a current diagnosis for this admission?: Yes (3) Adynamic ileus Is this a current diagnosis for this admission?: Yes (4) Atrial fibrillation Qualifiers: Atrial fibrillation type: paroxysmal Qualified Code(s): I48.0 - Paroxysmal atrial fibrillation Is this a current diagnosis for this admission?: Yes (5) Bladder calculus Is this a current diagnosis for this admission?: No (6) GI bleed Is this a current diagnosis for this admission?: Yes (7) Hypernatremia Is this a current diagnosis for this admission?: Yes (8) Hypokalemia Is this a current diagnosis for this admission?: Yes (9) Leukocytosis Qualifiers: Leukocytosis type: unspecified Qualified Code(s): D72.829 - Elevated white blood cell count, unspecified Is this a current diagnosis for this admission?: Yes (10) Multifocal atrial tachycardia Is this a current diagnosis for this admission?: Yes (11) Sepsis Is this a current diagnosis for this admission?: Yes (12) Type 2 diabetes mellitus Qualifiers: Diabetes mellitus complication status: with unspecified complications Is this a current diagnosis for this admission?: Yes (13) COPD (chronic obstructive pulmonary disease) Qualifiers: COPD type: unspecified COPD Qualified Code(s): J44.9 - Chronic obstructive pulmonary disease, unspecified Is this a current diagnosis for this admission?: Yes (14) GERD (gastroesophageal reflux disease) Is this a current diagnosis for this admission?: Yes - Time Time Spent with patient: 15-24 minutes - Plan Summary Plan Summary: The patient has been admitted with the above diagnoses. He received 5 days of vancomycin and 7 days of meropenem secondary to bacteremia with staph epidermidis. Repeat blood cultures are negative. Antibiotics were discontinued on 11/12/2016. The patient's adynamic ileus is resolved. Surgery is planning on transferring the patient back to [facility]. The rest of his medical problems are stable at this time. Potassium and magnesium are being replaced. I have no additional recommendations for changing his current regimen.
[2017-11-14 16:27] LABS: ANION GAP 6 (5-19); BLOOD UREA NITROGEN 10 mg/dL (7-20); CALCIUM 7.5 mg/dL (8.4-10.2); CARBON DIOXIDE 23 mmol/L (22-30); CHLORIDE 106 mmol/L (98-107); GLUCOSE 111 mg/dL (75-110); POTASSIUM 3.2 mmol/L (3.6-5.0); SODIUM 134.5 mmol/L (137-145)
[2017-11-14] MEDS: NYSTATIN TOPICAL POWDER 15 GM TP SCH (18:20)
[2017-11-14] MEDS: POTASSI CL 20 MEQ/50 ML RIDER 20 MEQ/50 ML RTUPB IV SCH ×2 (18:20→20:50)
[2017-11-14] MEDS: MAGNESIUM SULFATE/D5W 1 GM/100 ML RTUPB IV SCH ×2 (18:20→20:50)
[2017-11-15] MEDS ORDERED: VANCOMYCIN HCL INJ 500 MG VIAL ONE (04:00)
[2017-11-15] MEDS ORDERED: VANCOMYCIN HCL INJ 500 MG VIAL PO ONE (04:00)
[2017-11-15] MEDS: DILTIAZEM HCL 30 MG TABLET PO SCH ×3 (05:05→21:29)
[2017-11-15 05:31] LABS: ABSOLUTE EOSINOPHILS # (AUTO) 0.2 10^3/uL (0.0-0.6); ABSOLUTE LYMPHOCYTES (AUTO) 1.5 10^3/uL (0.5-4.7); ABSOLUTE MONOCYTES (AUTO) 1.1 10^3/uL (0.1-1.4); BASOPHILS % (AUTO) 0.2 % (0-2); EOSINOPHILS % (AUTO) 0.8 % (0-6); HEMATOCRIT 31.4 % (37.9-51.0); HEMOGLOBIN 10.2 g/dL (13.5-17.0); LYMPHOCYTES % (AUTO) 7.8 % (13-45); MEAN CORPUSCULAR HEMOGLOBIN 26.5 pg (27.0-33.4); MEAN CORPUSCULAR HGB CONC 32.4 g/dL (32.0-36.0); MEAN CORPUSCULAR VOLUME 82 fl (80-97); MONOCYTES % (AUTO) 5.9 % (3-13); PLATELET COUNT 290 10^3/uL (150-450); RED BLOOD COUNT 3.83 10^6/uL (4.35-5.55); RED CELL DISTRIBUTION WIDTH 15.2 % (11.5-14.0); SEGMENTED NEUTROPHILS % (AUTO) 85.3 % (42-78); TOTAL CELLS COUNTED % (AUTO) 100 %; WHITE BLOOD COUNT 18.7 10^3/uL (4.0-10.5)
[2017-11-15 05:55] LABS: ANION GAP 10 (5-19); BLOOD UREA NITROGEN 13 mg/dL (7-20); CALCIUM 7.4 mg/dL (8.4-10.2); CARBON DIOXIDE 18 mmol/L (22-30); CHLORIDE 104 mmol/L (98-107); GLUCOSE 101 mg/dL (75-110); PHOSPHORUS 4.1 mg/dL (2.5-4.5); POTASSIUM 3.3 mmol/L (3.6-5.0); SODIUM 131.7 mmol/L (137-145)
[2017-11-15] MEDS: VANCOMYCIN HCL INJ 500 MG VIAL PO SCH ×3 (08:37→21:28)
[2017-11-15] MEDS: PHOSPHORUS #1 250 MG TABLET PO SCH ×3 (08:37→15:07)
[2017-11-15] MEDS: MAGNESIUM OXIDE 400 MG TABLET PO SCH ×2 (10:11→17:11)
[2017-11-15] MEDS: FAMOTIDINE 20 MG TABLET PO SCH ×2 (10:12→21:29)
[2017-11-15] MEDS: POTASSIUM CHLORIDE 10 MEQ TABLET.SA PO SCH (10:15)
[2017-11-15] MEDS: NYSTATIN TOPICAL POWDER 15 GM TP SCH ×2 (10:15→17:12)
[2017-11-15] MEDS: METOPROLOL TARTRATE 25 MG TABLET PO SCH ×2 (10:15→21:29)
[2017-11-15] MEDS: RINGERS SOLUTION,LACTATED 1,000 ML IV PRN (12:41)
--- NOTE | 2017-11-15 12:55 | PDOC PROGRESS REPORT ---
Subjective Progress Note for:: 11/15/17 Subjective:: The patient has been admitted for an adynamic ileus. This has resolved. During this hospitalization he has had complications of atrial fibrillation and multifocal atrial tachycardia. Cardiology is following. He has had issues with electrolytes. He also had initial blood cultures which were positive for staph epidermidis: one blood culture set. Repeat blood cultures are now negative. The patient denies complaints again today, but, his review of systems is unreliable. I was informed last night that the patient started having diarrhea. Unfortunately, his C. difficile testing is now positive. He was placed on oral vancomycin by the radiator mechanic. Reason For Visit: SMALL BOWEL OBSTRUCTION,DILATED COLON,UTI,COPD, Physical Exam Vital Signs: Temp Pulse Resp BP Pulse Ox 97.7 F 92 21 H 147/56 H 97 11/15/17 07:28 11/15/17 07:28 11/15/17 07:28 11/15/17 07:28 11/15/17 07:28 Intake & Output 11/14/17 11/15/17 11/16/17 06:59 06:59 06:59 Intake Total 1737 1568 Balance 1737 1568 Weight 63.5 kg 60.3 kg Additional comments: The patient is an elderly, debilitated male. His history is unreliable. E. G. He denied being a quadriplegic but has had a previous C4 injury. In any event, he appears stable without sepsis. Patient's facial appearance is unremarkable. His lungs are clear to auscultation bilaterally. His cardiac exam is regular without murmurs, gallops or rubs. His abdomen is soft and flat. Bowel sounds are present. He has no guarding or rebound. He has no hernias or masses. Lower extremities showed general atrophy of the signature with contractures. Skin is clean, warm, dry and intact without lesions or rashes in the visible areas. Results Laboratory Results: 11/15/17 05:13 11/15/17 05:13 11/14/17 11/15/17 11/15/17 15:22 01:53 01:53 WBC RBC Hgb Hct MCV MCH MCHC RDW Plt Count Seg Neutrophils % Lymphocytes % Monocytes % Eosinophils % Basophils % Absolute Neutrophils Absolute Lymphocytes Absolute Monocytes Absolute Eosinophils Absolute Basophils Sodium 134.5 L Potassium 3.2 L Chloride 106 Carbon Dioxide 23 Anion Gap 6 BUN 10 Creatinine 1.01 Est GFR ( Amer) > 60 Est GFR (Non-Af Amer) > 60 Glucose 111 H Calcium 7.5 L Phosphorus Magnesium 1.6 Stool Occult Blood NEGATIVE Stool for White Cells FEW H 11/15/17 11/15/17 05:13 05:13 WBC 18.7 H RBC 3.83 L Hgb 10.2 L Hct 31.4 L MCV 82 MCH 26.5 L MCHC 32.4 RDW 15.2 H Plt Count 290 Seg Neutrophils % 85.3 H Lymphocytes % 7.8 L Monocytes % 5.9 Eosinophils % 0.8 Basophils % 0.2 Absolute Neutrophils 16.0 H Absolute Lymphocytes 1.5 Absolute Monocytes 1.1 Absolute Eosinophils 0.2 Absolute Basophils 0.0 Sodium 131.7 L Potassium 3.3 L Chloride 104 Carbon Dioxide 18 L Anion Gap 10 BUN 13 Creatinine 1.68 H Est GFR ( Amer) 49 L Est GFR (Non-Af Amer) 41 L Glucose 101 Calcium 7.4 L Phosphorus 4.1 Magnesium 2.2 Stool Occult Blood Stool for White Cells Impressions: Chest X-Ray 11/06/17 00:00 IMPRESSION: Appropriate nasogastric tube. Head CT 11/06/17 00:00 IMPRESSION: CHRONIC CHANGES OF ATROPHY AND MICROVASCULAR ISCHEMIA. RIGHT TEMPORAL CRANIOTOMY. NO ACUTE PROCESS. EVIDENCE OF ACUTE STROKE: NO. Abdomen/Pelvis CT 11/06/17 00:59 IMPRESSION: 1. Findings compatible with likely partial small bowel obstruction with transition to decompressed loops of small bowel distally. Exact transition point is not definitely identified. 2. Redemonstrated large bowel ileus pattern. 3. Bilateral staghorn renal calculi without evidence of hydronephrosis. This exam was performed according to our departmental dose-optimization program, which includes automated exposure control, adjustment of the mA and/or kV according to patient size and/or use of iterative reconstruction technique. Assessment & Plan - Diagnosis (1) Bacteremia Is this a current diagnosis for this admission?: Yes Plan: The patient had evidence of sepsis on admission. 2 out of 2 blood cultures grew staphylococcal epidermidis. Repeat blood cultures on 11/08/2017 were negative. There is no vegetation on TTE. The patient completed 5 days of vancomycin and 7 days of meropenem. Antibiotics were then discontinued. Now he has C. difficile colitis. (2) Acute metabolic encephalopathy Is this a current diagnosis for this admission?: Yes Plan: Patient now appears to be at baseline. (3) Adynamic ileus Is this a current diagnosis for this admission?: Yes Plan: Resolved. (4) Atrial fibrillation Qualifiers: Atrial fibrillation type: paroxysmal Qualified Code(s): I48.0 - Paroxysmal atrial fibrillation Is this a current diagnosis for this admission?: Yes Plan: Continue rate control agents. Patient is not anticoagulated. (5) Bladder calculus Is this a current diagnosis for this admission?: Yes Plan: Without evidence of hydronephrosis (6) GI bleed Is this a current diagnosis for this admission?: Yes Plan: Ascribed to NGT trauma. (7) Hypernatremia Is this a current diagnosis for this admission?: Yes Plan: Resolved. Patient is now trending towards hyponatremia. LR was started today. (8) Hypokalemia Is this a current diagnosis for this admission?: Yes Plan: Continue replacement. (9) Leukocytosis Qualifiers: Leukocytosis type: unspecified Qualified Code(s): D72.829 - Elevated white blood cell count, unspecified Is this a current diagnosis for this admission?: Yes Plan: WBC elevated today. This is likely due to C. difficile colitis. Oral vancomycin was started. (10) Multifocal atrial tachycardia Is this a current diagnosis for this admission?: Yes Plan: Patient is now on metoprolol and Cardizem per cardiology recommendations. However, if ileus recurs, consider increasing beta-francisco and decreasing dose of calcium channel francisco. (11) Sepsis Is this a current diagnosis for this admission?: Yes Plan: Had been clinically resolved Currently, WBC is elevated again and patient is at risk of recurrent sepsis. (12) Type 2 diabetes mellitus Qualifiers: Diabetes mellitus complication status: with unspecified complications Is this a current diagnosis for this admission?: Yes Plan: Begin fingersticks and sliding scale insulin. (13) COPD (chronic obstructive pulmonary disease) Qualifiers: COPD type: unspecified COPD Qualified Code(s): J44.9 - Chronic obstructive pulmonary disease, unspecified Is this a current diagnosis for this admission?: Yes Plan: Stable. Initiate as needed DuoNeb (14) GERD (gastroesophageal reflux disease) Is this a current diagnosis for this admission?: Yes Plan: Continue famotidine (15) Acute kidney injury (nontraumatic) Is this a current diagnosis for this admission?: Yes Plan: Creatinine has increased overnight, lactated Ringer's has been initiated. (16) C. difficile diarrhea Is this a current diagnosis for this admission?: Yes Plan: Patient is now on oral vancomycin. Today should be considered a 1 of 14. - Time Time Spent with patient: 25-34 minutes - Inpatient Certification Medical Necessity: Need Close Monitoring Due to Risk of Patient Decompensation, Need For IV Fluids
[2017-11-15] MEDS ORDERED: DEXTROSE 40% GEL 15 GM TUBE PO PRN ×2 (12:56)
[2017-11-15] MEDS ORDERED: DEXTROSE 50%-WATER 25 GM/50 ML DISP.SYRIN IV PRN ×2 (12:56)
[2017-11-15] MEDS ORDERED: GLUCAGON,HUMAN RECOMB 1 MG INJ IM PRN (12:56)
[2017-11-15] MEDS ORDERED: INSULIN LISPRO 100 UNIT/ML 3 ML VIAL SUBCUT PRN (12:56)
[2017-11-15] MEDS ORDERED: IPRATROPIUM/ALBUTEROL 0.5-2.5 MG/3 ML AMPUL NEB PRN (12:57)
[2017-11-16] MEDS: RINGERS SOLUTION,LACTATED 1,000 ML IV PRN ×2 (01:30→14:57)
[2017-11-16] MEDS: VANCOMYCIN HCL INJ 500 MG VIAL PO SCH ×4 (03:59→22:00)
[2017-11-16 04:43] LABS: HEMATOCRIT 27.8 % (37.9-51.0); HEMOGLOBIN 9.4 g/dL (13.5-17.0); MEAN CORPUSCULAR HEMOGLOBIN 27.1 pg (27.0-33.4); MEAN CORPUSCULAR HGB CONC 33.6 g/dL (32.0-36.0); MEAN CORPUSCULAR VOLUME 81 fl (80-97); PLATELET COUNT 301 10^3/uL (150-450); RED BLOOD COUNT 3.45 10^6/uL (4.35-5.55); RED CELL DISTRIBUTION WIDTH 15.2 % (11.5-14.0); WHITE BLOOD COUNT 20.2 10^3/uL (4.0-10.5)
[2017-11-16 05:09] LABS: ANION GAP 10 (5-19); BLOOD UREA NITROGEN 16 mg/dL (7-20); CALCIUM 7.4 mg/dL (8.4-10.2); CARBON DIOXIDE 18 mmol/L (22-30); CHLORIDE 99 mmol/L (98-107); GLUCOSE 120 mg/dL (75-110); PHOSPHORUS 4.7 mg/dL (2.5-4.5); SODIUM 127.2 mmol/L (137-145)
[2017-11-16 05:13] LABS: ABSOLUTE LYMPHOCYTES# (MANUAL) 1.4 10^3/uL (0.5-4.7); ABSOLUTE MONOCYTES # (MANUAL) 0.2 10^3/uL (0.1-1.4); ABSOLUTE NEUTROPHILS# (MANUAL) 18.6 10^3/uL (1.7-8.2); BASOPHILS % (MANUAL) 0 % (0-2); EOSINOPHILS % (MANUAL) 0 % (0-6); LYMPHOCYTES % (MANUAL) 7 % (13-45); MONOCYTES % (MANUAL) 1 % (3-13); SEGMENTED NEUTROPHILS % (MAN) 92 % (42-78); TOTAL CELLS COUNTED 100
[2017-11-16 05:15] LABS: OVALOCYTES 1+; TOXIC GRANULATION 2+
[2017-11-16 05:16] LABS: ANISOCYTOSIS SLIGHT; BURR CELLS SLIGHT; PLATELET CLUMPS PRESENT; PLATELET COMMENT ADEQUATE; POIKILOCYTOSIS SLIGHT; POTASSIUM 3.1 mmol/L (3.6-5.0)
[2017-11-16] MEDS: DILTIAZEM HCL 30 MG TABLET PO SCH ×3 (06:22→22:00)
--- NOTE | 2017-11-16 10:19 | PDOC PROGRESS REPORT ---
Subjective Progress Note for:: 11/16/17 Subjective:: Nursing states that pt has penile edema. Pt states that he is feeling ok this morning. Reason For Visit: SMALL BOWEL OBSTRUCTION,DILATED COLON,UTI,COPD, Physical Exam Vital Signs: Temp Pulse Resp BP Pulse Ox 98.1 F 86 16 139/67 H 96 11/16/17 08:18 11/16/17 08:18 11/16/17 08:18 11/16/17 08:18 11/16/17 08:18 Intake & Output 11/15/17 11/16/17 11/17/17 06:59 06:59 06:59 Intake Total 1568 2980 Balance 1568 2980 Weight 60.3 kg 63.4 kg General appearance: PRESENT: no acute distress, thin, well-developed Head exam: PRESENT: atraumatic, normocephalic Eye exam: PRESENT: conjunctiva pink, EOMI. ABSENT: scleral icterus Ear exam: PRESENT: normal external ear exam Mouth exam: PRESENT: moist, tongue midline Neck exam: ABSENT: carotid bruit, JVD, lymphadenopathy, thyromegaly Respiratory exam: PRESENT: clear to auscultation donovan. ABSENT: rales, rhonchi, wheezes Cardiovascular exam: PRESENT: RRR. ABSENT: diastolic murmur, rubs, systolic murmur Pulses: PRESENT: normal dorsalis pedis pul Vascular exam: PRESENT: normal capillary refill GI/Abdominal exam: PRESENT: normal bowel sounds, soft. ABSENT: distended, guarding, mass, organolmegaly, rebound, tenderness Rectal exam: PRESENT: deferred Extremities exam: ABSENT: calf tenderness, clubbing, pedal edema Neurological exam: PRESENT: alert, awake, oriented to person, oriented to place , oriented to time, oriented to situation, CN II-XII grossly intact. ABSENT: motor sensory deficit Psychiatric exam: PRESENT: appropriate affect, normal mood. ABSENT: homicidal ideation, suicidal ideation Results Laboratory Results: 11/16/17 04:22 11/16/17 04:22 11/16/17 11/16/17 04:22 04:22 WBC 20.2 H RBC 3.45 L Hgb 9.4 L Hct 27.8 L MCV 81 MCH 27.1 MCHC 33.6 RDW 15.2 H Plt Count 301 Seg Neutrophils % Not Reportable Lymphocytes % Not Reportable Monocytes % Not Reportable Eosinophils % Not Reportable Basophils % Not Reportable Absolute Neutrophils Not Reportable Absolute Lymphocytes Not Reportable Absolute Monocytes Not Reportable Absolute Eosinophils Not Reportable Absolute Basophils Not Reportable Sodium 127.2 L Potassium 3.1 L Chloride 99 Carbon Dioxide 18 L Anion Gap 10 BUN 16 Creatinine 2.46 H Est GFR ( Amer) 32 L Est GFR (Non-Af Amer) 26 L Glucose 120 H Calcium 7.4 L Phosphorus 4.7 H Magnesium 2.0 Impressions: Chest X-Ray 11/06/17 00:00 IMPRESSION: Appropriate nasogastric tube. Head CT 11/06/17 00:00 IMPRESSION: CHRONIC CHANGES OF ATROPHY AND MICROVASCULAR ISCHEMIA. RIGHT TEMPORAL CRANIOTOMY. NO ACUTE PROCESS. EVIDENCE OF ACUTE STROKE: NO. Abdomen/Pelvis CT 11/06/17 00:59 IMPRESSION: 1. Findings compatible with likely partial small bowel obstruction with transition to decompressed loops of small bowel distally. Exact transition point is not definitely identified. 2. Redemonstrated large bowel ileus pattern. 3. Bilateral staghorn renal calculi without evidence of hydronephrosis. This exam was performed according to our departmental dose-optimization program, which includes automated exposure control, adjustment of the mA and/or kV according to patient size and/or use of iterative reconstruction technique. Assessment & Plan - Diagnosis (1) Acute renal injury Is this a current diagnosis for this admission?: Yes Plan: Will have maldonado placed. Will consult urology due to earlier discussion for nephostomy tubes. Will check Renal ultrasound. (2) C. difficile colitis Is this a current diagnosis for this admission?: Yes Plan: Will continue pt on Vancomycin. (3) Sepsis Is this a current diagnosis for this admission?: Yes Plan: Secondary to staph epi present at time of admission: Completed treatment. (4) GI bleed Is this a current diagnosis for this admission?: Yes Plan: Secondary to Gastritis: Will continue PPI. (5) Acute upper GI bleed Is this a current diagnosis for this admission?: Yes Plan: Secondary Gastritis: PPI. (6) Hypokalemia Is this a current diagnosis for this admission?: Yes Plan: Will give Potassium replacement. (7) Atrial fibrillation Qualifiers: Atrial fibrillation type: paroxysmal Qualified Code(s): I48.0 - Paroxysmal atrial fibrillation Is this a current diagnosis for this admission?: Yes Plan: Per Cardiology. Pt on Diltiazem and Metoprolol. (8) Leukocytosis Qualifiers: Leukocytosis type: unspecified Qualified Code(s): D72.829 - Elevated white blood cell count, unspecified Is this a current diagnosis for this admission?: Yes Plan: Secondary to C. diff: Will continue Vancomycin. (9) Multifocal atrial tachycardia Is this a current diagnosis for this admission?: Yes Plan: Will continue Metoprolol and diltiazem. (10) Partial small bowel obstruction Is this a current diagnosis for this admission?: Yes Plan: Resolved. (11) Type 2 diabetes mellitus Qualifiers: Diabetes mellitus complication status: with unspecified complications Is this a current diagnosis for this admission?: Yes Plan: Continue to monitor glucose. Pt has SSI in place (12) GERD (gastroesophageal reflux disease) Is this a current diagnosis for this admission?: Yes Plan: Continue PPI (13) Hydronephrosis Is this a current diagnosis for this admission?: Yes Plan: Urology Consulted. (14) Hypernatremia Is this a current diagnosis for this admission?: Yes Plan: Resolved. (15) Acute metabolic encephalopathy Is this a current diagnosis for this admission?: Yes Plan: Resolved. (16) Hyponatremia Is this a current diagnosis for this admission?: Yes Plan: Will continue to monitor. Could possibly due to pt not being able to void well. (17) DVT prophylaxis Is this a current diagnosis for this admission?: Yes Plan: SCDs
[2017-11-16] MEDS: METOPROLOL TARTRATE 25 MG TABLET PO SCH ×2 (10:47→22:00)
[2017-11-16] MEDS: MAGNESIUM OXIDE 400 MG TABLET PO SCH ×2 (10:49→22:01)
[2017-11-16] MEDS: POTASSIUM CHLORIDE 10 MEQ TABLET.SA PO SCH (10:49)
[2017-11-16] MEDS: FAMOTIDINE 20 MG TABLET PO SCH ×2 (10:50→22:00)
[2017-11-16] MEDS: NYSTATIN TOPICAL POWDER 15 GM TP SCH (23:18)
--- NOTE | 2017-11-16 23:28 | RADIOLOGY REPORT (SQ) ---
EXAM DESCRIPTION: U/S RETROPERITON LTD COMPLETED DATE/TIME: 11/16/2017 10:42 pm REASON FOR STUDY: Worsening renal function. COMPARISON: None. TECHNIQUE: Dynamic and static grayscale images acquired of the kidneys and bladder and recorded on P ACS. Additional selected color Doppler and spectral images recorded. LIMITATIONS: Limited exam due to overlying bowel gas and patient mobility. FINDINGS: RIGHT KIDNEY: Normal size. No obvious masses or hydronephrosis. LEFT KIDNEY: Normal size. No obvious masses or hydronephrosis. BLADDER: Decompressed by Hanson catheter. OTHER FINDINGS: No other significant finding. IMPRESSION: No obvious masses or hydronephrosis. Limited exam due to overlying bowel gas and patie nt mobility. TECHNICAL DOCUMENTATION: JOB ID: [id number] [id number] 2010 [employer]- All Rights Reserved Reading location - IP/workstation name: [email or web address]
[2017-11-17] MEDS: VANCOMYCIN HCL INJ 500 MG VIAL PO SCH ×4 (04:13→20:32)
[2017-11-17 04:42] LABS: ABSOLUTE BASOPHILS # (AUTO) 0.1 10^3/uL (0.0-0.2); ABSOLUTE EOSINOPHILS # (AUTO) 0.1 10^3/uL (0.0-0.6); ABSOLUTE LYMPHOCYTES (AUTO) 1.1 10^3/uL (0.5-4.7); ABSOLUTE MONOCYTES (AUTO) 1.1 10^3/uL (0.1-1.4); ABSOLUTE NEUT (AUTO) 15.3 10^3/uL (1.7-8.2); BASOPHILS % (AUTO) 0.5 % (0-2); EOSINOPHILS % (AUTO) 0.5 % (0-6); HEMATOCRIT 27.6 % (37.9-51.0); LYMPHOCYTES % (AUTO) 6.5 % (13-45); MEAN CORPUSCULAR HEMOGLOBIN 26.2 pg (27.0-33.4); MEAN CORPUSCULAR HGB CONC 32.6 g/dL (32.0-36.0); MEAN CORPUSCULAR VOLUME 81 fl (80-97); MONOCYTES % (AUTO) 6.3 % (3-13); PLATELET COUNT 350 10^3/uL (150-450); RED BLOOD COUNT 3.42 10^6/uL (4.35-5.55); RED CELL DISTRIBUTION WIDTH 15.2 % (11.5-14.0); SEGMENTED NEUTROPHILS % (AUTO) 86.2 % (42-78); TOTAL CELLS COUNTED % (AUTO) 100 %; WHITE BLOOD COUNT 17.7 10^3/uL (4.0-10.5)
[2017-11-17 04:55] LABS: ANION GAP 10 (5-19); BLOOD UREA NITROGEN 18 mg/dL (7-20); CALCIUM 7.5 mg/dL (8.4-10.2); CARBON DIOXIDE 17 mmol/L (22-30); CHLORIDE 101 mmol/L (98-107); GLUCOSE 92 mg/dL (75-110); POTASSIUM 3.5 mmol/L (3.6-5.0); SODIUM 127.9 mmol/L (137-145)
[2017-11-17] MEDS: DILTIAZEM HCL 30 MG TABLET PO SCH ×3 (06:31→21:33)
[2017-11-17] MEDS: RINGERS SOLUTION,LACTATED 1,000 ML IV PRN (06:32)
[2017-11-17] MEDS ORDERED: RINGERS SOLUTION,LACTATED 1,000 ML IV ONE (08:29)
[2017-11-17] MEDS ORDERED: RINGERS SOLUTION,LACTATED 1,000 ML IV PRN (08:29)
[2017-11-17] MEDS: METOPROLOL TARTRATE 25 MG TABLET PO SCH ×2 (11:03→21:32)
[2017-11-17] MEDS: FAMOTIDINE 20 MG TABLET PO SCH ×2 (11:03→21:31)
[2017-11-17] MEDS: POTASSIUM CHLORIDE 10 MEQ TABLET.SA PO SCH (11:04)
[2017-11-17] MEDS: MAGNESIUM OXIDE 400 MG TABLET PO SCH ×2 (11:04→17:06)
[2017-11-17] MEDS: NYSTATIN TOPICAL POWDER 15 GM TP SCH ×2 (11:05→17:06)
--- NOTE | 2017-11-17 11:25 | PDOC PROGRESS REPORT ---
Subjective Progress Note for:: 11/17/17 Subjective:: Nursing states that pt's renal function has worsened. Reason For Visit: SMALL BOWEL OBSTRUCTION,DILATED COLON,UTI,COPD, Physical Exam Vital Signs: Temp Pulse Resp BP Pulse Ox 98.0 F 74 16 141/65 H 98 11/17/17 08:38 11/17/17 08:38 11/17/17 08:38 11/17/17 08:38 11/17/17 08:38 Intake & Output 11/16/17 11/17/17 11/18/17 06:59 06:59 06:59 Intake Total 2980 1873 Output Total 125 Balance 2980 1748 Weight 63.4 kg 63.7 kg General appearance: PRESENT: no acute distress, thin, well-developed Head exam: PRESENT: atraumatic, normocephalic Eye exam: PRESENT: conjunctiva pink, EOMI. ABSENT: scleral icterus Ear exam: PRESENT: normal external ear exam Mouth exam: PRESENT: moist, tongue midline Neck exam: ABSENT: carotid bruit, JVD, lymphadenopathy, thyromegaly Respiratory exam: PRESENT: clear to auscultation donovan. ABSENT: rales, rhonchi, wheezes Cardiovascular exam: PRESENT: RRR. ABSENT: diastolic murmur, rubs, systolic murmur Pulses: PRESENT: normal dorsalis pedis pul Vascular exam: PRESENT: normal capillary refill GI/Abdominal exam: PRESENT: distended, normal bowel sounds Rectal exam: PRESENT: deferred Extremities exam: PRESENT: calf tenderness, other - +2 pitting edema in thighs and buttock. Neurological exam: PRESENT: alert, awake, oriented to person, oriented to place , oriented to time, oriented to situation. ABSENT: motor sensory deficit Psychiatric exam: PRESENT: appropriate affect, normal mood. ABSENT: homicidal ideation, suicidal ideation Skin exam: PRESENT: dry, intact, warm. ABSENT: cyanosis, rash Results Laboratory Results: 11/17/17 04:32 11/17/17 04:32 11/17/17 11/17/17 04:32 04:32 WBC 17.7 H RBC 3.42 L Hgb 9.0 L Hct 27.6 L MCV 81 MCH 26.2 L MCHC 32.6 RDW 15.2 H Plt Count 350 Seg Neutrophils % 86.2 H Lymphocytes % 6.5 L Monocytes % 6.3 Eosinophils % 0.5 Basophils % 0.5 Absolute Neutrophils 15.3 H Absolute Lymphocytes 1.1 Absolute Monocytes 1.1 Absolute Eosinophils 0.1 Absolute Basophils 0.1 Sodium 127.9 L Potassium 3.5 L Chloride 101 Carbon Dioxide 17 L Anion Gap 10 BUN 18 Creatinine 3.19 H Est GFR ( Amer) 24 L Est GFR (Non-Af Amer) 19 L Glucose 92 Calcium 7.5 L 11/15/17 01:53 Stool - Stool - Final Impressions: Chest X-Ray 11/06/17 00:00 IMPRESSION: Appropriate nasogastric tube. Head CT 11/06/17 00:00 IMPRESSION: CHRONIC CHANGES OF ATROPHY AND MICROVASCULAR ISCHEMIA. RIGHT TEMPORAL CRANIOTOMY. NO ACUTE PROCESS. EVIDENCE OF ACUTE STROKE: NO. Abdomen/Pelvis CT 11/06/17 00:59 IMPRESSION: 1. Findings compatible with likely partial small bowel obstruction with transition to decompressed loops of small bowel distally. Exact transition point is not definitely identified. 2. Redemonstrated large bowel ileus pattern. 3. Bilateral staghorn renal calculi without evidence of hydronephrosis. This exam was performed according to our departmental dose-optimization program, which includes automated exposure control, adjustment of the mA and/or kV according to patient size and/or use of iterative reconstruction technique. Renal Ultrasound 11/16/17 00:00 IMPRESSION: No obvious masses or hydronephrosis. Limited exam due to overlying bowel gas and patient mobility. Assessment & Plan - Diagnosis (1) Acute renal injury Is this a current diagnosis for this admission?: Yes Plan: Suspected Secondary to ATN: Will have maldonado placed. Pt renal function has worsened. Will give 1 Liter bolus and increase IVFs. Will monitor urine output. Urology states that pt did not have anything to offer at this time. (2) C. difficile colitis Is this a current diagnosis for this admission?: Yes Plan: Will continue pt on Vancomycin. (3) Sepsis Is this a current diagnosis for this admission?: Yes Plan: Secondary to staph epi present at time of admission: Completed treatment. (4) GI bleed Is this a current diagnosis for this admission?: Yes Plan: Secondary to Gastritis: Will continue PPI. (5) Acute upper GI bleed Is this a current diagnosis for this admission?: Yes Plan: Secondary Gastritis: PPI. (6) Hypokalemia Is this a current diagnosis for this admission?: Yes Plan: Will give Potassium replacement. (7) Atrial fibrillation Qualifiers: Atrial fibrillation type: paroxysmal Qualified Code(s): I48.0 - Paroxysmal atrial fibrillation Is this a current diagnosis for this admission?: Yes Plan: Per Cardiology. Pt on Diltiazem and Metoprolol. (8) Leukocytosis Qualifiers: Leukocytosis type: unspecified Qualified Code(s): D72.829 - Elevated white blood cell count, unspecified Is this a current diagnosis for this admission?: Yes Plan: Secondary to C. diff: Will continue Vancomycin. (9) Multifocal atrial tachycardia Is this a current diagnosis for this admission?: Yes Plan: Will continue Metoprolol and diltiazem. (10) Partial small bowel obstruction Is this a current diagnosis for this admission?: Yes Plan: Resolved. (11) Type 2 diabetes mellitus Qualifiers: Diabetes mellitus complication status: with unspecified complications Is this a current diagnosis for this admission?: Yes Plan: Continue to monitor glucose. Pt has SSI in place (12) GERD (gastroesophageal reflux disease) Is this a current diagnosis for this admission?: Yes Plan: Continue PPI (13) Hydronephrosis Is this a current diagnosis for this admission?: Yes Plan: Urology Consulted. Renal Ultrasound demonstrated no evidence of Hydronephrosis. Urology states that they have nothing to offer patient. (14) Hypernatremia Is this a current diagnosis for this admission?: Yes Plan: Resolved. (15) Acute metabolic encephalopathy Is this a current diagnosis for this admission?: Yes Plan: Resolved. (16) Hyponatremia Is this a current diagnosis for this admission?: Yes Plan: Will continue to monitor. Will continue IVFs (17) DVT prophylaxis Is this a current diagnosis for this admission?: Yes Plan: SCDs - Time Time Spent with patient: 15-24 minutes
[2017-11-18] MEDS ORDERED: FUROSEMIDE INJ/PF 40 MG/4 ML SDV ONE (02:14)
[2017-11-18] MEDS: VANCOMYCIN HCL INJ 500 MG VIAL PO SCH ×3 (02:21→14:25)
[2017-11-18] MEDS ORDERED: FUROSEMIDE INJ/PF 40 MG/4 ML SDV IV ONE (02:45)
[2017-11-18] MEDS: DILTIAZEM HCL 30 MG TABLET PO SCH ×2 (05:33→13:50)
[2017-11-18 05:46] LABS: ABSOLUTE EOSINOPHILS # (AUTO) 0.1 10^3/uL (0.0-0.6); ABSOLUTE LYMPHOCYTES (AUTO) 1.2 10^3/uL (0.5-4.7); ABSOLUTE MONOCYTES (AUTO) 1.2 10^3/uL (0.1-1.4); ABSOLUTE NEUT (AUTO) 12.7 10^3/uL (1.7-8.2); BASOPHILS % (AUTO) 0.3 % (0-2); EOSINOPHILS % (AUTO) 0.6 % (0-6); HEMATOCRIT 27.2 % (37.9-51.0); LYMPHOCYTES % (AUTO) 7.6 % (13-45); MEAN CORPUSCULAR HEMOGLOBIN 26.6 pg (27.0-33.4); MEAN CORPUSCULAR HGB CONC 33.1 g/dL (32.0-36.0); MEAN CORPUSCULAR VOLUME 80 fl (80-97); MONOCYTES % (AUTO) 8.1 % (3-13); PLATELET COUNT 377 10^3/uL (150-450); RED BLOOD COUNT 3.38 10^6/uL (4.35-5.55); RED CELL DISTRIBUTION WIDTH 15.4 % (11.5-14.0); SEGMENTED NEUTROPHILS % (AUTO) 83.4 % (42-78); TOTAL CELLS COUNTED % (AUTO) 100 %; WHITE BLOOD COUNT 15.2 10^3/uL (4.0-10.5)
[2017-11-18 05:57] LABS: ANION GAP 10 (5-19); BLOOD UREA NITROGEN 20 mg/dL (7-20); CALCIUM 7.3 mg/dL (8.4-10.2); CARBON DIOXIDE 18 mmol/L (22-30); CHLORIDE 99 mmol/L (98-107); GLUCOSE 96 mg/dL (75-110); SODIUM 127.3 mmol/L (137-145)
[2017-11-18] MEDS: NYSTATIN TOPICAL POWDER 15 GM TP SCH (09:46)
[2017-11-18] MEDS: MAGNESIUM OXIDE 400 MG TABLET PO SCH (09:47)
[2017-11-18] MEDS: FAMOTIDINE 20 MG TABLET PO SCH (09:47)
[2017-11-18] MEDS: POTASSIUM CHLORIDE 10 MEQ TABLET.SA PO SCH (09:47)
[2017-11-18] MEDS: METOPROLOL TARTRATE 25 MG TABLET PO SCH (09:47)
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
[2017-11-18 15:35] VITALS: BP 147/79
== END 2017-11-18 15:41 | disposition short-term general hospital (02) | DRG 871 ==
LOC: ER 00:55 → EH 03:05 → ICU 15:30 → 3W 11-09 18:24
PROVIDERS: ADMIT Surgery; ATTEND Surgery
PROC: 02H633Z Insertion of Infusion Device into Right Atrium, Percutaneous Approach (ICD-10-PCS; principal; 2017-11-06)
PROC: 0DD68ZX Extraction of Stomach, Via Natural or Artificial Opening Endoscopic, Diagnostic (ICD-10-PCS; 2017-11-11)
DX: A41.1 Sepsis due to other specified staphylococcus (principal); N17.0 Acute kidney failure with tubular necrosis; G82.50 Quadriplegia, unspecified; G93.49 Other encephalopathy; K56.600 Partial intestinal obstruction, unspecified as to cause; A04.72 Enterocolitis due to Clostridium difficile, not specified as recurrent; K92.0 Hematemesis; I48.0 Paroxysmal atrial fibrillation; E86.0 Dehydration; E87.0 Hyperosmolality and hypernatremia; K56.7 Ileus, unspecified; I47.1 Supraventricular tachycardia; Z66 Do not resuscitate; I50.9 Heart failure, unspecified; I11.0 Hypertensive heart disease with heart failure; E11.65 Type 2 diabetes mellitus with hyperglycemia; R10.9 Unspecified abdominal pain; E87.6 Hypokalemia; J44.9 Chronic obstructive pulmonary disease, unspecified; K21.9 Gastro-esophageal reflux disease without esophagitis; K40.90 Unilateral inguinal hernia, without obstruction or gangrene, not specified as recurrent; N20.0 Calculus of kidney; I25.10 Atherosclerotic heart disease of native coronary artery without angina pectoris; K29.70 Gastritis, unspecified, without bleeding; Z87.891 Personal history of nicotine dependence; Z79.01 Long term (current) use of anticoagulants; Z79.84 Long term (current) use of oral hypoglycemic drugs; Z79.82 Long term (current) use of aspirin; Z79.899 Other long term (current) drug therapy; Z74.01 Bed confinement status
CPT/HCPCS: 36415; 43239; 70450; 71045; 74176; 76775; 80048; 80053; 80069; 80202; 82040; 82271; 82272; 82962; 83051; 83605; 83690; 83735; 84100; 84439; 84443; 84481; 85025; 85027; 85610; 85730; 87040; 87045; 87077; 87186; 87205; 87493; 88305; 88342; 89055; 93005; 93010; 93306; 99285; C1751; J0171; J1200; J1610; J1815; J1940; J2185; J2250; J2310; J2405; J3010; J3370; J3475; J3480; J3490; J7030; J7060; J7120; S0028; S0164

== ENCOUNTER 2017-12-25 06:35 | Emergency (ER) | payer MEDICARE, MEDICAID ==
[2017-12-25 06:50] VITALS: BP 142/66
[2017-12-25] MEDS ORDERED: IMIPENEM/CILASTATIN SODIUM INJ 500 MG VIAL IV ONE (06:55)
[2017-12-25] MEDS ORDERED: ACETAMINOPHEN 325 MG TABLET PO ONE (06:55)
[2017-12-25] MEDS ORDERED: NORMAL SALINE 1000 ML 1,000 ML IV ONE (06:55)
[2017-12-25] MEDS ORDERED: VANCOMYCIN HCL INJ 1000 MG VIAL IV ONE (06:55)
--- NOTE | 2017-12-25 07:01 | ER Document Report ---
ED GI/ - General Chief Complaint: Urinary Problem Stated Complaint: BLOOD IN URINE Time Seen by Provider: 12/25/17 06:54 Notes: HC-67 years old male with multiple medical problems including past intubation, bilateral nephrostomy tube was presented with fever of 102. Difficult to get history from patient. Though he is alert and oriented, states that he feels good. Denies any discomfort. REVIEW OF SYSTEMS: CONSTITUTIONAL : . Denies recent illness. EENT: Denies eye, ear, throat, or mouth pain or symptoms. Denies nasal or sinus congestion or discharge. Denies throat, tongue, or mouth swelling or difficulty swallowing. CARDIOVASCULAR: Denies chest pain. Denies palpitations or racing or irregular heart beat. Denies ankle edema. RESPIRATORY: Denies cough, cold, or chest congestion. Denies shortness of breath, difficulty breathing, or wheezing. GASTROINTESTINAL: Denies abdominal pain or distention. Denies nausea, vomiting , or diarrhea. Denies blood in vomitus, stools, or per rectum. Denies black, tarry stools. Denies constipation. GENITOURINARY: Denies difficulty urinating, painful urination, burning, frequency, blood in urine, or discharge. MUSCULOSKELETAL: Denies back or neck pain or stiffness. Denies joint pain or swelling. SKIN: Denies rash, lesions or sores. HEMATOLOGIC : Denies easy bruising or bleeding. LYMPHATIC: Denies swollen, enlarged glands. NEUROLOGICAL: Denies confusion or altered mental status. Denies passing out or loss of consciousness. Denies dizziness or lightheadedness. Denies headache. Denies weakness or paralysis or loss of use of either side. Denies problems with gait or speech. Denies sensory loss, numbness, or tingling. Denies seizures. PSYCHIATRIC: Denies anxiety or stress. Denies depression, suicidal ideation, or homicidal ideation. ALL OTHER SYSTEMS REVIEWED AND NEGATIVE. Dictation was performed using flux - [employer] voice recognition software PHYSICAL EXAMINATION: GENERAL: Cachectic elderly male in moderate discomfort. Nephrostomy tube is draining urine appears clear HEAD: Atraumatic, normocephalic. EYES: Pupils equal round and reactive to light, extraocular movements intact, sclera anicteric, conjunctiva are normal. ENT: Nares patent, oropharynx clear without exudates. Moist mucous membranes. NECK: Normal range of motion, supple without lymphadenopathy. LUNGS: Breath sounds clear to auscultation bilaterally and equal. No wheezes rales or rhonchi. HEART: Regular rate and rhythm without murmurs ABDOMEN: Soft, nontender, nondistended abdomen. No guarding, no rebound. No masses appreciated. Musculoskeletal: Normal range of motion, no pitting or edema. No cyanosis. NEUROLOGICAL: Cranial nerves grossly intact. Normal speech, normal gait. Normal sensory, motor exams PSYCH: Normal mood, normal affect. SKIN: Warm, Dry, normal turgor, no rashes or lesions noted.HC- TRAVEL OUTSIDE OF THE [place] IN LAST 30 DAYS: No - HPI Patient complains to provider of: No: Abdominal pain, Diarrhea, Dysuria, Feeding tube problem, Flank pain, Hanson catheter problem, Groin pain, Hematuria , Testicular pain, Urinary retention, Vomiting, Other Onset: Just prior to arrival Timing/Duration: Gradual Quality of pain: denies: No pain, Achy, Burning, Cramping, Dull, Fullness, Pressure, Sharp, Stabbing, Throbbing, Other Severity in ED: Moderate Pain Level: Denies Location: No: Chest pain, Epigastric, LUQ, LLQ, RUQ, RLQ, Left flank, Right flank, Low back, Suprapubic, Pelvis, Left testicle, Right testicle, Rectal, Other Sexual history: denies: Active, Inactive, New partner, Multiple partners, Unprotected intercourse, Rectal penetration, STD exposure, Condoms - Related Data Allergies/Adverse Reactions: celecoxib [From Celebrex] Allergy (Verified 11/06/17 08:51) Penicillins Allergy (Verified 11/06/17 08:51) Sulfa (Sulfonamide Antibiotics) Allergy (Verified 11/06/17 08:55) sulfamethoxazole [From Bactrim] Allergy (Verified 11/06/17 08:51) trimethoprim [From Bactrim] Allergy (Verified 11/06/17 08:51) Past Medical History - General Information source: Patient - Social History Smoking Status: Former Smoker Cigarette use (# per day): No Chew tobacco use (# tins/day): No Frequency of alcohol use: Rare Drug Abuse: denies: None, Bath salts, Cocaine, Heroin, Marijuana, Methamphetamine, Prescription drugs, Other Lives with: Alone, Family, Parents, Spouse/Significant other, Friend, Grandparent(s), Guardian, Homeless, Prison, Other Family History: Reviewed & Not Pertinent - Past Medical History Cardiac Medical History: Reports: Hx Atrial Fibrillation, Hx Congestive Heart Failure, Hx Hypertension Pulmonary Medical History: Reports: Hx COPD, Hx Pneumonia Denies: Hx Tuberculosis Neurological Medical History: Denies: Hx Seizures Renal/ Medical History: Denies: Hx Peritoneal Dialysis GI Medical History: Reports: Hx Gastroesophageal Reflux Disease Psychiatric Medical History: Denies: Hx Depression Past Surgical History: Reports: Other - tracheostomy - Immunizations Hx Diphtheria, Pertussis, Tetanus Vaccination: Yes Review of Systems - Review of Systems Constitutional: Chills, Fever. denies: No symptoms reported, See HPI, Diaphoresis, Malaise, Weakness, Other, Weight gain, Weight loss, Recent illness EENT: denies: No symptoms reported, See HPI, Eye pain, Eye discharge, Blurred vision, Tearing, Double vision, Ear pain, Ear discharge, Nose pain, Nose congestion, Nose discharge, Sinus pressure, Sinus discharge, Throat pain, Difficulty swallowing, Throat swelling, Mouth pain, Mouth swelling, Dental problem, Vertigo, Other Cardiovascular: denies: No symptoms reported, See HPI, Chest pain, Palpitations , Heart racing, Orthopnea, Dyspnea, Syncope, Dizziness, Lightheaded, Edema, Other, Paroxysmal Nocturnal Dysp Respiratory: denies: No symptoms reported, See HPI, Cough, Hurts to breathe, Hemoptysis, Short of breath, Sputum, Stridor, Wheezing, Other Gastrointestinal: denies: No symptoms reported, See HPI, Abdomen distended, Abdominal pain, Diarrhea, Nausea, Vomiting, Constipation, Blood streaked bowels , Poor appetite, Poor fluid intake, Blood in vomit, Black stools, Rectal bleeding, Last bowel movement, Fecal incontinence, Other Genitourinary: denies: No symptoms reported, See HPI, Burning, Dysuria, Discharge, Frequency, Flank pain, Hematuria, Incontinence, Pain, Urgency, Retention, Other Male Genitourinary: See HPI Neurological/Psychological: denies: No symptoms reported, See HPI, Confusion, Dementia, Depression, Hallucinations, Anxiety, Homicidal ideation, Sensory change, Weakness, Gait changes, Loss of power, Paralysis, Seizure, Lost consciousness, Headaches, Speech impairment, Numbness, Suicidal ideation, Tingling, Tremor, Other Physical Exam - Vital signs Vitals: Temp Pulse Resp BP Pulse Ox 98.4 F 72 16 142/66 H 96 12/25/17 06:49 12/25/17 06:49 12/25/17 06:49 12/25/17 06:49 12/25/17 06:49 - Notes Notes: Dictated Course - Vital Signs Vital signs: Temp Pulse Resp BP Pulse Ox 98.4 F 72 16 142/66 H 96 12/25/17 06:49 12/25/17 06:49 12/25/17 06:49 12/25/17 06:49 12/25/17 06:49
[2017-12-25 08:15] LABS: ABSOLUTE EOSINOPHILS # (AUTO) 0.2 10^3/uL (0.0-0.6); ABSOLUTE LYMPHOCYTES (AUTO) 1.7 10^3/uL (0.5-4.7); ABSOLUTE MONOCYTES (AUTO) 1.2 10^3/uL (0.1-1.4); ABSOLUTE NEUT (AUTO) 13.4 10^3/uL (1.7-8.2); BASOPHILS % (AUTO) 0.3 % (0-2); EOSINOPHILS % (AUTO) 1.3 % (0-6); HEMATOCRIT 35.4 % (37.9-51.0); HEMOGLOBIN 11.4 g/dL (13.5-17.0); MEAN CORPUSCULAR HEMOGLOBIN 25.9 pg (27.0-33.4); MEAN CORPUSCULAR HGB CONC 32.3 g/dL (32.0-36.0); MEAN CORPUSCULAR VOLUME 80 fl (80-97); MONOCYTES % (AUTO) 7.1 % (3-13); PLATELET COUNT 302 10^3/uL (150-450); RED BLOOD COUNT 4.41 10^6/uL (4.35-5.55); RED CELL DISTRIBUTION WIDTH 17.4 % (11.5-14.0); SEGMENTED NEUTROPHILS % (AUTO) 81.3 % (42-78); TOTAL CELLS COUNTED % (AUTO) 100 %; VENOUS BLOOD BASE EXCESS 2.6 mmol/L; VENOUS BLOOD PCO2 41.2 mmHg (35-63); VENOUS BLOOD PH 7.44 (7.30-7.42); WHITE BLOOD COUNT 16.5 10^3/uL (4.0-10.5)
[2017-12-25 08:27] LABS: INTERNATIONAL RATION (INR) 1.02; PROTHROMBIN TIME 13.9 SEC (11.4-15.4)
--- NOTE | 2017-12-25 08:31 | EKG REPORT ---
SEVERITY:- ABNORMAL ECG - SINUS RHYTHM PROBABLE LVH WITH SECONDARY REPOL ABNRM PROBABLE INFERIOR INFARCT, AGE INDETERMINATE CONSIDER ANTERIOR INFARCT : Confirmed by: Anjel Alston MD 25-Dec-2017 08:30:39
[2017-12-25 08:36] LABS: ALANINE AMINOTRANSFERASE 24 U/L (21-72); ALBUMIN 3.3 g/dL (3.5-5.0); ALKALINE PHOSPHATASE 134 U/L (38-126); ANION GAP 7 (5-19); ASPARTATE AMINO TRANSFERASE 23 U/L (17-59); BILIRUBIN,DIRECT 0.3 mg/dL (0.0-0.4); BILIRUBIN,TOTAL 0.8 mg/dL (0.2-1.3); BLOOD UREA NITROGEN 9 mg/dL (7-20); CARBON DIOXIDE 31 mmol/L (22-30); CHLORIDE 102 mmol/L (98-107); GLUCOSE 154 mg/dL (75-110); POTASSIUM 3.1 mmol/L (3.6-5.0); SODIUM 140.3 mmol/L (137-145); TOTAL PROTEIN 6.9 g/dL (6.3-8.2)
[2017-12-25] MEDS ORDERED: POTASSIUM IODIDE 1 GM/1 ML 30 ML BOTTLE PO ONE (08:40)
[2017-12-25] MEDS ORDERED: POTASSI CL 20 MEQ/50 ML RIDER 20 MEQ/50 ML RTUPB IV ONE (08:40)
--- NOTE | 2017-12-25 09:07 | RADIOLOGY REPORT (SQ) ---
EXAM DESCRIPTION: CHEST SINGLE VIEW COMPLETED DATE/TIME: 12/25/2017 8:55 am REASON FOR STUDY: [facility] COMPARISON: Chest film 11/06/2017, 09/29/2013, 09/25/2013 EXAM PARAMETERS: NUMBER OF VIEWS: One view. TECHNIQUE: Single frontal radiographic view of the chest acquired. RADIATION DOSE: NA LIMITATIONS: None. FINDINGS: LUNGS AND PLEURA: Chronic elevation right hemidiaphragm, with chronic volume loss and scar ring in the right lower lobe. No acute infiltrates. No pleural effusions. Stable left calcific pleural plaque at the lateral left hemidiaphragm. MEDIASTINUM AND HILAR STRUCTURES: No masses. Contour normal. HEART AND VASCULAR STRUCTURES: Heart normal in size. Normal vasculature. BONES: Osteoporotic. Old right healed rib fractures HARDWARE: None in the chest. OTHER: No other significant finding. IMPRESSION: No acute findings. Chronic elevation right hemidiaphragm with volume loss and scarring in the right lower lobe. TECHNICAL DOCUMENTATION: JOB ID: [id number] [employer]- All Rights Reserved Reading location - IP/workstation name: [email or web address]
[2017-12-25 09:37] LABS: APPEARANCE,URINE CLOUDY; BILIRUBIN,URINE NEGATIVE (NEGATIVE); CALCIUM OXALATE CRYSTALS,URINE MODERATE /HPF; COLOR,URINE AMBER; GLUCOSE, URINE 50 mg/dL (NEGATIVE); KETONES,URINE NEGATIVE (NEGATIVE); LEUKOCYTE ESTERASE,URINE LARGE (NEGATIVE); NITRITE,URINE NEGATIVE (NEGATIVE); PROTEIN,URINE >=500 mg/dL (NEGATIVE); URINE SPECIFIC GRAVITY 1.012; UROBILINOGEN,URINE NEGATIVE mg/dL (<2.0)
--- NOTE | 2017-12-25 18:32 | PDOC CONSULTATION ---
Consultation Consult Date: 12/25/17 Attending physician:: ARMANDO TREJO History of Present Illness Admission Date/PCP: APARNA OSIE DO Patient complains of: Hematuria in the setting of recently placed nephrostomy tubes History of Present Illness: LAUREN NOE JR is a 67 year old male who has been quadriplegic for about 11 years after falling and sustaining a C-spine fracture. He is currently living in a local fdc and is cared for quite a bit by his sister and other family members. He has had multiple medical complications and recently was in the hospital in [place] with kidney stones and renal failure for which he had bilateral nephrostomy tubes placed. He has been back at the fdc for several weeks. Things have been going well. This morning his fdc staff noticed blood in his nephrostomy tube bags. He was brought to the ER. He was found to have evidence of urinary tract infection with a little bit of confusion, positive UA, hypotension. Started on antibiotics and given IV fluids by the ER doctor. Hospitalist was called to evaluate. Past Medical History Cardiac Medical History: Reports: Atrial Fibrillation, Congestive Heart Failure , Hypertension Pulmonary Medical History: Reports: Chronic Obstructive Pulmonary Disease (COPD) , Pneumonia Denies: Tuberculosis Neurological Medical History: Denies: Seizures Renal/ Medical History: Reports: Other - Recent acute kidney injury GI Medical History: Reports: Gastroesophageal Reflux Disease, Other - History of bowel obstructions Musculoskeltal Medical History: Reports: None Skin Medical History: Reports: None Psychiatric Medical History: Reports: Other - History of alcohol use disorder, sober for 11 years Denies: Depression Past Surgical History Past Surgical History: Reports: Other - Tracheostomy, nephrostomy tubes, bowel resection for bowel obstruction Social History Lives with: Alone, Family, Parents, Spouse/Significant other, Friend, Grandparent(s), Guardian, Homeless, [facility], Other Smoking Status: Unknown if Ever Smoked Frequency of Alcohol Use: None Hx Recreational Drug Use: No Drugs: None Hx Prescription Drug Abuse: No - Advance Directive Resuscitation Status: Do Not Resuscitate Surrogate healthcare decision maker:: Sister and brother are both at the bedside Family History Parental Family History Reviewed: Yes - Both parents had diabetes Children Family History Reviewed: Yes - Has 2 healthy sons Sibling(s) Family History Reviewed.: Yes - Siblings are healthy per sister's report Medication/Allergy Home Medications: Aspirin [Ecotrin 81 mg EC Tablet] 81 mg PO DAILY 11/06/17 Digoxin [Lanoxin 0.125 mg Tablet] 0.125 mg PO DAILY 11/06/17 Diltiazem HCl [Cardizem Cd 120 mg Capsule] 120 mg PO DAILY 11/06/17 Famotidine [Pepcid 20 mg Tablet] 20 mg PO BID 11/06/17 Fluticasone Propionate [Flonase Nasal Flora 50 Mcg/Flora 16 gm] 1 spray NASL DAILY 11/06/17 Ipratropium/Albuterol Sulfate [Iprat-Albut 0.5-3(2.5) mg/3 ml] 3 ml NEB Q8 11/06 Lactobacillus Acidophilus [Acidophilus Lactobacilli] 500 mg PO BID 11/06/17 Lactulose [Enulose 10 gm/15 mL Oral Solution] 30 mg PO QHS 11/06/17 Metoprolol Tartrate [Lopressor 100 mg Tablet] 100 mg PO Q12 11/06/17 Multivitamin [Tab-A-Thiago (Multiple Vitamin) Tablet] 1 tab PO DAILY 11/06/17 Ondansetron HCl [Zofran 4 mg Tablet] 4 mg PO Q6HP PRN 11/06/17 Polyethylene Glycol 3350 [Miralax Powder 17 gm/Packet] 17 gm PO DAILY 11/06/17 Acetaminophen [Tylenol 325 mg Tablet] 650 mg PO Q6HP PRN tablet 11/18/17 Dextrose [Glutose 40% Gel 15 gm Tube] 15 gm PO PRN PRN tube 11/18/17 Dextrose [Glutose 40% Gel 15 gm Tube] 30 gm PO PRN PRN tube 11/18/17 Diltiazem HCl [Cardizem 30 mg Tablet] 30 mg PO Q8 tablet 11/18/17 Famotidine [Pepcid 20 mg Tablet] 20 mg PO Q12 tablet 11/18/17 Glucagon,Human Recombinant [Glucagen Inj 1 mg Vial] 1 mg IM PRN PRN vial Insulin Lispro [Humalog Insulin (Lispro) 100 unit/mL] 0 - 12 unit SUBCUT ACHSP PRN unit 11/18/17 Ipratropium/Albuterol Sulfate [Duoneb 3 ml Ampul] 3 ml NEB RTQ6HP PRN vial.neb 11/18/17 Magnesium Oxide [Mag-Ox 400 mg Tablet] 400 mg PO BID tablet 11/18/17 Metoprolol Tartrate [Lopressor 25 mg Tablet] 25 mg PO Q12 tablet 11/18/17 Nystatin [Mycostatin Topical Powder 15 gm] 1 applic TP BID bottle 11/18/17 Potassium Chloride [Klor-Con 10 Meq Tablet.sa] 40 meq PO DAILY tablet.sa Allergies/Adverse Reactions: celecoxib [From Celebrex] Allergy (Verified 11/06/17 08:51) Penicillins Allergy (Verified 11/06/17 08:51) Sulfa (Sulfonamide Antibiotics) Allergy (Verified 11/06/17 08:55) sulfamethoxazole [From Bactrim] Allergy (Verified 11/06/17 08:51) trimethoprim [From Bactrim] Allergy (Verified 11/06/17 08:51) Review of Systems ROS unobtainable: Due to mental status Nose, Mouth, and Throat: ABSENT: headache(s) Cardiovascular: ABSENT: edema Respiratory: ABSENT: dyspnea Gastrointestinal: ABSENT: diarrhea Genitourinary: PRESENT: hematuria Integumentary: PRESENT: wounds - Sacral decubitus Neurological: PRESENT: confusion, weakness Psychiatric: ABSENT: anxiety Physical Exam Vital Signs: Temp Pulse Resp BP Pulse Ox 98.4 F 72 17 142/66 H 97 12/25/17 06:49 12/25/17 06:49 12/25/17 13:49 12/25/17 06:49 12/25/17 13:49 Intake & Output 12/24/17 12/25/17 12/26/17 06:59 06:59 06:59 Weight 75.6 kg General appearance: PRESENT: no acute distress, cooperative Head exam: PRESENT: atraumatic, normocephalic Eye exam: PRESENT: conjunctiva pink. ABSENT: scleral icterus Ear exam: PRESENT: normal external ear exam Mouth exam: PRESENT: moist, tongue midline Neck exam: ABSENT: lymphadenopathy Respiratory exam: PRESENT: clear to auscultation donovan, unlabored. ABSENT: rales , rhonchi, wheezes Cardiovascular exam: PRESENT: RRR. ABSENT: systolic murmur Pulses: PRESENT: normal radial pulses GI/Abdominal exam: PRESENT: normal bowel sounds, soft. ABSENT: distended, tenderness Rectal exam: PRESENT: other - Well-formed brown stool Gentrourinary exam: PRESENT: other - Bilateral nephrostomy tubes with cloudy yellow urine within. I remove dressings and both nephrostomy tube tracts had pus emanating from them. Extremities exam: ABSENT: joint swelling, pedal edema Neurological exam: PRESENT: altered, oriented to person. ABSENT: oriented to place, oriented to situation Psychiatric exam: ABSENT: anxious Skin exam: PRESENT: other - Patient has a large area of stage I sacral decubitus ulcer with smaller areas of stage II Results Laboratory Results: 12/25/17 07:50 12/25/17 07:50 12/25/17 12/25/17 12/25/17 07:50 07:50 07:50 WBC 16.5 H RBC 4.41 Hgb 11.4 L Hct 35.4 L MCV 80 MCH 25.9 L MCHC 32.3 RDW 17.4 H Plt Count 302 Seg Neutrophils % 81.3 H Lymphocytes % 10.0 L Monocytes % 7.1 Eosinophils % 1.3 Basophils % 0.3 Absolute Neutrophils 13.4 H Absolute Lymphocytes 1.7 Absolute Monocytes 1.2 Absolute Eosinophils 0.2 Absolute Basophils 0.0 VBG pH VBG pCO2 VBG HCO3 VBG Base Excess Sodium 140.3 Potassium 3.1 L Chloride 102 Carbon Dioxide 31 H Anion Gap 7 BUN 9 Creatinine 0.58 Est GFR ( Amer) > 60 Est GFR (Non-Af Amer) > 60 Glucose 154 H Lactic Acid 0.9 Calcium 9.0 Total Bilirubin 0.8 AST 23 ALT 24 Alkaline Phosphatase 134 H Total Protein 6.9 Albumin 3.3 L Urine Color Urine Appearance Urine pH Ur Specific Valera Urine Protein Urine Glucose (UA) Urine Ketones Urine Blood Urine Nitrite Ur Leukocyte Esterase Urine WBC (Auto) Urine RBC (Auto) 12/25/17 12/25/17 07:50 09:20 WBC RBC Hgb Hct MCV MCH MCHC RDW Plt Count Seg Neutrophils % Lymphocytes % Monocytes % Eosinophils % Basophils % Absolute Neutrophils Absolute Lymphocytes Absolute Monocytes Absolute Eosinophils Absolute Basophils VBG pH 7.44 H VBG pCO2 41.2 VBG HCO3 27.0 VBG Base Excess 2.6 Sodium Potassium Chloride Carbon Dioxide Anion Gap BUN Creatinine Est GFR ( Amer) Est GFR (Non-Af Amer) Glucose Lactic Acid Calcium Total Bilirubin AST ALT Alkaline Phosphatase Total Protein Albumin Urine Color BARON Urine Appearance CLOUDY Urine pH 7.0 Ur Specific Valera 1.012 Urine Protein >=500 H Urine Glucose (UA) 50 H Urine Ketones NEGATIVE Urine Blood LARGE H Urine Nitrite NEGATIVE Ur Leukocyte Esterase LARGE H Urine WBC (Auto) 173 Urine RBC (Auto) >182 Impressions: Chest X-Ray 12/25/17 06:55 IMPRESSION: No acute findings. Chronic elevation right hemidiaphragm with volume loss and scarring in the right lower lobe. Assessment & Plan - Diagnosis (1) Urinary tract infection Is this a current diagnosis for this admission?: Yes Plan: Patient's urinalysis appears infected. His urine in the nephrostomy tubes is cloudy. There is pus coming from the nephrostomy tube tracts. I have recommended to the emergency room physician that this patient be transferred back to [facility] in [place] for urology consultation, likely these nephrostomy tubes need to be removed. O transfer r is in progress. Patient is hemodynamically stable now. (2) Quadriplegia Is this a current diagnosis for this admission?: Yes Plan: Patient is bedbound. He lives in a fdc. His sister is very involved in his care. (3) Sacral decubitus ulcer Qualifiers: Pressure ulcer stage: stage 2 Qualified Code(s): L89.152 - Pressure ulcer of sacral region, stage 2 Is this a current diagnosis for this admission?: Yes Plan: Stage I and stage II over the sacrum. Dressing placed for transfer. Every 2 hours turning is recommended. (4) Acute metabolic encephalopathy Is this a current diagnosis for this admission?: Yes Plan: Likely due to the infection. This is not severe he is intermittently confused. He reports that this is common when he has an infection. (5) Hypokalemia Is this a current diagnosis for this admission?: Yes Plan: Per his [employer] this is being repleted by ER staff. (6) Advanced care planning/counseling discussion Is this a current diagnosis for this admission?: Yes Plan: I spoke with the patient's healthcare power of attorney at law, his sister who is primary and also the brother who is secondary, about the patient's advanced care planning history and his wishes for end-of-life care. They have told me that his CODE STATUS is DNR/DNI. They have also told me that the patient is ready to a natural when that time comes. Recently when he had his bilateral nephrostomy tubes placed it was unclear that that is with the patient wanted to do as he is told the family that he is tired of the life that he is living and does not feel that it is a good quality life. We talked about the possibility of considering hospice care if the patient decides that he does not want to undergo procedures or hospitalizations any longer. The family noted that they appreciated the deborah discussion about options for his care at this time. They feel comfortable with transfer to [facility] for now. - Time Time Spent: 50 to 70 Minutes Medications reviewed and adjusted accordingly: Yes Anticipated discharge: [facility] - Plan Summary Plan Summary: I have turned the care of this patient back over to the emergency department who agrees with transfer to [facility]. Hospitalist will sign off.
== END 2017-12-25 16:22 | disposition short-term general hospital (02) ==
LOC: ER 06:35
DX: N39.0 Urinary tract infection, site not specified (principal); R31.9 Hematuria, unspecified; L89.152 Pressure ulcer of sacral region, stage 2; E87.6 Hypokalemia; G93.41 Metabolic encephalopathy; R50.9 Fever, unspecified; G82.50 Quadriplegia, unspecified; S14.109S Unspecified injury at unspecified level of cervical spinal cord, sequela; W19.XXXS Unspecified fall, sequela; I11.0 Hypertensive heart disease with heart failure; I50.9 Heart failure, unspecified; I48.91 Unspecified atrial fibrillation; K21.9 Gastro-esophageal reflux disease without esophagitis; J44.9 Chronic obstructive pulmonary disease, unspecified; Z79.82 Long term (current) use of aspirin; Z79.899 Other long term (current) drug therapy; Z93.6 Other artificial openings of urinary tract status; Z88.8 Allergy status to other drugs, medicaments and biological substances; Z88.0 Allergy status to penicillin; Z88.2 Allergy status to sulfonamides; Z88.1 Allergy status to other antibiotic agents; Z66 Do not resuscitate
CPT/HCPCS: 93005; 99285; 96361; 96365; 96367; 36415; 87040; 87086; 82962; 85025; 85610; 87088; 80053; 81001; 87186; 82803; 83605; 71045; 93010; J0743; J3490; J7030; J3370